=== PATIENT | male | born 1980 | race Caucasian/White ===

== ENCOUNTER 2022-08-31 15:40 | Outpatient (OUT) | payer OTHER, SELFPAY ==
[2022-08-31 16:25] LABS: Estimated Average Glucose 312 mg/dL; Glycohemoglobin A1C 12.5 % (4.5-6.2)
== END 2022-08-31 15:41 | disposition home or self-care (01) ==
LOC: LAB 15:43
PROVIDERS: PCP Family Medicine; Visit Provider Family Medicine
DX: E11.65 Type 2 diabetes mellitus with hyperglycemia (principal)
CPT/HCPCS: 36415; 83036

== ENCOUNTER 2023-01-03 07:45 | Outpatient (OUT) | payer OTHER, SELFPAY ==
[2023-01-03 08:03] LABS: Basophils Absolute Auto 0.1 10^3/uL (0.0-0.1); Basophils Percent Auto 0.9 % (0.2-2.0); Eosinophils Absolute Auto 0.4 10^3/uL (0.0-0.7); Eosinophils Percent Auto 6.5 % (0.9-7.0); Hematocrit 45.7 % (42.0-54.0); Hemoglobin 14.9 g/dL (14.0-18.0); Immature Granulocytes Abs Auto 0.01 10^3/uL (0.00-0.03); Immature Granulocytes Pct Auto 0.2 % (0.0-0.5); Lymphocytes Absolute Auto 1.5 10^3/uL (1.2-3.8); Lymphocytes Percent Auto 26.2 % (20.5-60.0); Mean Corpuscular HGB Conc 32.6 g/dL (29.9-35.2); Mean Corpuscular Hemoglobin 29.8 pg (25.9-34.0); Mean Corpuscular Volume 91.4 fL (80.0-94.0); Mean Platelet Volume 9.4 fL (9.5-13.5); Monocytes Absolute Auto 0.5 10^3/uL (0.3-0.8); Monocytes Percent Auto 7.7 % (1.7-12.0); Neutrophils Absolute Auto 3.4 10^3/uL (1.4-6.5); Neutrophils Percent Auto 58.5 % (43.0-75.0); Platelet Count 274 10^3/uL (150-450); Red Cell Distribution Width 12.1 % (11.0-15.0); White Blood Count 5.8 10^3/uL (4.0-11.0)
[2023-01-03 10:41] LABS: Estimated Average Glucose 249 mg/dL; Glycohemoglobin A1C 10.3 % (4.5-6.2)
[2023-01-03 10:55] LABS: Prostate Specific Antigen Scrn 1.02 ng/mL (<=4.00)
[2023-01-03 12:45] LABS: Alanine Aminotransferase 34 U/L (16-63); Alkaline Phosphatase 85 U/L (46-116); Anion Gap 13.5; Aspartate Amino Transferase 18 U/L (15-37); BUN Creatinine Ratio 15.5; Bilirubin Total 0.7 mg/dL (0.2-1.0); Calcium 9.2 mg/dL (8.5-10.1); Carbon Dioxide 26.7 mmol/L (21.0-32.0); Chloride 102 mmol/L (98-107); Cholesterol 217 mg/dL (<=200); Estimated GFR (African America >60 (>=60); Estimated GFR (Non-African Ame >60 (>=60); Glucose 215 mg/dL (74-106); HDL Cholesterol 36 mg/dL (40-60); Potassium 4.2 mmol/L (3.5-5.1); Sodium 138 mmol/L (136-145); Thyroid Stimulating Hormone 2.001 uIU/mL (0.358-3.740); Triglycerides 197 mg/dL (<=150); VLDL CHOLESTEROL 39.4 mg/dL
== END 2023-01-03 07:46 | disposition home or self-care (01) ==
PROVIDERS: PCP Family Medicine; Visit Provider Family Medicine
DX: Z00.00 Encounter for general adult medical examination without abnormal findings (principal)
CPT/HCPCS: 36415; 80053; 80061; 83036; 84443; 85025; G0103

== ENCOUNTER 2023-03-20 08:00 | Outpatient (OUT) | payer OTHER, SELFPAY ==
--- OUTSIDE RECORDS SUMMARY | 2023-03-20 08:02 | XMS_ITS | CCD ---
Author Name Unknown Address [address] [place] [address] Organization [facility] Care Team Providers Care Skiing Instructor Name Role Phone ROMERO LOJA Primary Care Physician DINORA HUERTA Attending Unavailable DEANNA, DINORA Admitting Unavailable DEANNA, DINORA Primary Care Unavailable DINORA HUERTA Consulting Unavailable HITCHCOCK ., DR LOPEZ Admitting Unavailable HITCHCOCK ., DR LOPEZ Consulting Unavailable HITCHCOCK ., DR LOPEZ Attending Unavailable NADERER, DR ISIDRO Moe Primary Care Unavailable LUIS M, DR EVELIA Lance Consulting Unavailable NADERER, DR ISIDRO Moe Primary Care Unavailable HITCHCOCK ., DR LOPEZ Admitting Unavailable HITCHCOCK ., DR LOPEZ Consulting Unavailable HITCHCOCK ., DR LOPEZ Attending Unavailable ZIEBER, DR LIZZ Brower Consulting Unavailable DINORA HUERTA Primary Care Unavailable NADERER, DR ISIDRO Moe Consulting Unavailable NADERER, DR ISIDRO Moe Attending Unavailable NADERER, DR ISIDRO Moe Admitting Unavailable NADERER, ISIDRO Attending Unavailable HITCHCOCK, Ambrocio Brower Referring Unavailable HITCHCOCK, Ambrocio Brower Admitting Unavailable HITCHCOCK, Ambrocio Brower Attending Unavailable Al-Marrawi, Jose Frost Admitting Unavailabl e Al-Marrawi, Jose Frost Attending Unavailabl e HITCHCOCK, Ambrocio Brower Referring Unavailable HITCHCOCK, Ambrocio R Attending Unavailable HITCHCOCK, Ambrocio R Referring Unavailable HITCHCOCK, Ambrocio R Attending Unavailable HITCHCOCK, Ambrocio R Attending Unavailable HITCHCOCK, Ambrocio R Attending Unavailable HITCHCOCK, Ambrocio R Referring Unavailable Al-Marrawi, Jose Frost Attending Unavailabl e Allergies Allergy Classification Reported Allergen(s) Allergy Type Date of Onset Reaction(s) Facility (1 source) No Known Medication Allergies; Translations: [No Known Medication Allergies] Propensity to adverse reactions (disorder) [facility] Repository Medications Current Medications Medication Drug Class(es) Dates Sig (Normalized) Sig (Original) apixaban 5 mg oral tablet (5 sources) Factor Xa Inhibitor Start: 03-17-2022 Eliquis 5 mg oral tablet Refills(s) 0 Start Date: 03/17/22 Status: Ordered empagliflozin 25 mg oral tablet (3 sources) Sodium-Glucose Cotransporter 2 Inhibitor Start: 10-03-2022 Jardiance 25 mg oral tablet Refills(s) 0 Start Date: 10/03/22 Status: Ordered glimepiride 4 mg oral tablet (5 sources) Sulfonylurea Start: 03-17-2022 glimepiride 4 mg Tab Refills(s) 0 Start Date: 03/17/22 Status: Ordered lisinopril 40 mg oral tablet (5 sources) Angiotensin Converting Enzyme Inhibitor Start: 03-17-2022 lisinopril 40 mg Tab Refills(s) 0 Start Date: 03/17/22 Status: Ordered metFORMIN hydrochloride 500 mg oral tablet (5 sources) Biguanide Start: 03-17-2022 metformin 500 mg Tab Refills(s) 0 Start Date: 03/17/22 Status: Ordered Completed/Discontinued Medications Medication Drug Class(es) Dates Sig (Normalized) Sig (Original) ciprofloxacin 500 mg oral tablet (2 sources) Quinolone Antimicrobial Start: 03-17-2022 Cipro 500 mg Tab 500 mg = 1 tab(s), Oral, As Directed, Pt to take 1 tab the day before procedure and the 2nd tab the day of procedure once completed., # 2 tab(s), Refills(s) 0, Pharmacy: [facility]/pharmacy #[id number], 175, cm, 03/17/22 9:53:00 EST, Height/Length Dosing, 111, kg,... Start Date: 03/17/22 Status: Ordered Problems Problem Classification Problem Date Documented Da te Episodic/Chronic Cancer of testis (9 sources) Malignant tumor of testis; Translations: [Malignant neoplasm of unspecified testis, unspecified whether descended or undescended] Onset: 04-06-2022 03-17-2022 Chronic Cancer of testis (11 sources) History of malignant neoplasm of male genital organ; Translations: [Personal history of malignant neoplasm of testis] Onset: 03-17-2022 Episodic Diabetes mellitus with complications (1 source) Type 2 diabetes mellitus with hyperglycemia; Translations: [TYPE 2 DM W/HYPERGLYCEMIA] Onset: 01-21-2022 Chronic Diabetes mellitus without complication (5 sources) Diabetes mellitus 03-17-2022 Chronic Diabetes mellitus without complication (6 sources) Glycosuria; Translations: [Glycosuria] Onset: 03-17-2022 Episodic Essential hypertension (5 sources) Hypertensive disorder 03-17-2022 Chronic Genitourinary symptoms and ill-defined conditions (7 sources) Microscopic hematuria; Translations: [Asymptomatic microscopic hematuria] Onset: 03-17-2022 Episodic Other aftercare (1 source) Long-term current use of anticoagulant; 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 CXR, tumor markers Due Date/Time: 02/26/2023 10:50:00 EST Reminder/Recall Pt is due in MAR [address] scan, CXR, tumor markers. He would like [facility] on sunday/ He would also like his f/u moved to sunday once the sched is done for 2023. From: Monse Hinton MA (EU - Recalls Coretta) To: EU - Recalls Coretta; Sent: 03/09/2023 13:24:27 EST Show up: 03/09/2023 13:24:00 EST Subject: RE: CT scan. CXR, tumor markers Due Date/Time: 03/26/2023 07:00:00 EST Testing has been ordered by Oncology. CT still pending auth Follow up w/PRW 04/02/23 [facility] Physician Orderon 03-05-2023 Physician Order [id number]#1.00TIFF [facility] Outside Radiologyon 10-09-20 23 Outside Radiology [id number]#[id number] Normal [facility] Outside Radiology [id number]#[id number] Normal [facility] Consenton 10-30-2022 Consent [id number]#1.00CD:127 Normal [facility] ONC - Otheron 10-30-2022 ONC - Other [id number]#[id number]:127 Normal [facility] Outside Progress Noteon 10-07 Outside Progress Note [id number]#[id number]:127 Normal [facility] AFPon 10-26-2022 AFP.tumor marker [Mass/Vol] ng/mL Invalid Interpretation Code 0.0-6.9 [facility] Comment on above: Result Comment: [employer] Electrochemiluminescence Immunoassay (ECLIA) Values obtained with different assay methods or kits cannot be used interchangeably. Results cannot be interpreted as absolute evidence of the presence or absence of malignant disease. This test is not interpretable in females. Performed at: [facility] [id number] PhD Zachary Holm Performed By: #### 2 818469, 5770464, 0688813, 0856365, 03829466 ####[facility] [address] [place] [address] Lab Miscellaneous-LCon 10-26 Lab Miscellaneous COMMENT Invalid Interpretation Code [facility] Comment on above: Result Comment: Test Ordered: [id number] hCG,Beta Subunit, Qnt hCG,Beta Subunit,Qnt,Serum <1 mIU/mL Reference Range: 0-3 Amelia ECLIA methodology Performed at: [address] [id number] PhD Zachary Holm Performed By: #### 1 [id number] #### [facility] [address] [place] [address] Auto Diffon 10-24-2022 Basophils/100 WBC (Bld) 0.7 % Normal 0.0-2.0 [facility] Comment on above: Order Comment: Order Added by Discern Expert. Performed By: #### 2 049354, 4613363, 3056814, 2401665, 45758153 ####[address] [place] [address] Basophils/Leukocytes Auto (Bld) [Pure # fraction] 0.1 E9/L Normal 0.0-0.2 [facility] Comment on above: Order Comment: Order Added by Discern Expert. Performed By: #### 2 316134, 1004688, 4940087, 0621913, 95302668 ####[address] [place] [address] Eosinophils/100 WBC (Bld) 8.2 % High 0.0-8.0 [facility] Comment on above: Order Comment: Order Added by Discern Expert. Performed By: #### 2 384390, 4903483, 4664583, 1640190, 11550856 ####[address] [place] [address] Eosinophils/Leukocyt es Auto (Bld) [Pure # fraction] 0.6 E9/L High 0.0-0.5 [facility] Comment on above: Order Comment: Order Added by Discern Expert. Performed By: #### 2 111689, 5011008, 4138651, 6028781, 80631071 ####[address] [place] [address] Lymphocytes/100 WBC (Bld) 19.8 % Normal 14.0-50.0 [facility] Comment on above: Order Comment: Order Added by Discern Expert. Performed By: #### 2 892631, 8731797, 2693455, 7950485, 45135739 ####[address] [address] Lymphocytes/Leukocyt es Auto (Bld) [Pure # fraction] 1.4 E9/L Normal 1.0-4.0 [facility] Comment on above: Order Comment: Order Added by Discern Expert. Performed By: #### 2 953235, 9317093, 8511151, 6138662, 41551070 ####[facility] [address] [place] [address] Monocytes/100 WBC (Bld) 8.5 % Normal 4.0-14.0 [facility] Comment on above: Order Comment: Order Added by Discern Expert. Performed By: #### 2 896498, 2721921, 6172017, 2261550, 63541306 ####[address] [place] [address] Monocytes/Leukocytes Auto (Bld) [Pure # fraction] 0.6 E9/L Normal 0.2-1.0 [facility] Comment on above: Order Comment: Order Added by Discern Expert. Performed By: #### 2 182265, 3471011, 7768942, 3738581, 01282795 ####[address] [address] Neutrophils/100 WBC (Bld) 62.8 % Normal 36.0-75.0 [facility] Comment on above: Order Comment: Order Added by Discern Expert. Performed By: #### 2 296549, 3844617, 9762893, 5402243, 18795465 ####[address] [place] [address] Neutrophils/Leukocyt es Auto (Bld) [Pure # fraction] 4.6 E9/L Normal 2.0-7.5 [facility] Comment on above: Order Comment: Order Added by Discern Expert. Performed By: #### 2 768802, 1802891, 9031499, 3583421, 16245322 ####[address] [place] [address] CBC w/ Auto Diffon 3 Erythrocyte distribution width (RBC) [Ratio] 12.9 % Normal 10.9-14.2 [facility] Comment on above: Performed By: #### 2 779141, 8571717, 6260223, 9882891, 17739013 #### [facility] [address] [place] [address] Hematocrit (Bld) [Volume fraction] 40.9 % Normal 37.7-49.0 [facility] Comment on above: Performed By: #### 2 383978, 5993972, 9597423, 6317430, 71184808 #### [facility] [address] [place] [address] Hemoglobin (Bld) [Mass/Vol] 13.9 g/dL Normal 13.5-17.5 [facility] Comment on above: Performed By: #### 2 067820, 7953198, 8014621, 7175362, 87265579 #### [facility] [address] [place] [address] MCH (RBC) [Entitic mass] 30.3 pg Normal 27.0-34.0 [facility] Comment on above: Performed By: #### 2 229450, 9139103, 8478344, 9509804, 45422034 #### [facility] [address] [place] [address] MCHC (RBC) [Mass/Vol] 34.0 g/dL Normal 31.4-36.0 [facility] Comment on above: Performed By: #### 2 206806, 1394451, 9525081, 7214512, 04353859 #### [facility] [address] [place] [address] MCV (RBC) [Entitic vol] 89.2 fL Normal 80.0-100.0 [facility] Comment on above: Performed By: #### 2 577236, 4402204, 8987048, 8316266, 06659517 #### [facility] [address] [place] [address] Platelet mean volume (Bld) [Entitic vol] 8.4 fL Normal 6.4-10.8 [facility] Comment on above: Performed By: #### 2 323323, 8405708, 8572895, 9415141, 42142063 #### [facility] [address] [place] [address] Platelets (Bld) [#/Vol] 343.0 E9/L Normal 150.0-500.0 [facility] Comment on above: Performed By: #### 2 485306, 9198845, 5876291, 7925439, 31887533 #### [facility] [address] [place] [address] RBC (Bld) [#/Vol] 4.6 E12/L Normal 4.3-5.9 [facility] Comment on above: Performed By: #### 2 138708, 0118277, 8640680, 4132304, 95125284 #### [facility] [address] [place] [address] WBC corrected for nucl RBC Auto (Bld) [#/Vol] 7.3 E9/L Normal 4.0-11.0 [facility] Comment on above: Performed By: #### 2 165184, 6875991, 4455303, 2167311, 90525340 #### [facility] [address] [place] [address] CHEMISTRYOrdered By: SYSTEM SYSTEM on 10-24-2022 Albumin [Mass/Vol] 4.3 g/dL Normal 3.3 - 5.0 gm/dL [facility] Albumin/Globulin [Mass ratio] 1.1 {ratio} Normal 1.1 - 2.2 [facility] ALP [Catalytic activity/Vol] 74 [iU]/d Normal 21 - 98 Int._Unit/L [facility] ALT No additional P-5'-P [Catalytic activity/Vol] 31 [iU]/d Normal 6 - 46 Int._Unit/L [facility] Anion gap [Moles/Vol] 13 mmol/L Normal 6 - 16 mEq/L [facility] AST [Catalytic activity/Vol] 26 [iU]/d Normal 5 - 43 Int._Unit/L [facility] Bilirubin [Mass/Vol] 0.5 mg/dL Normal 0.0 - 1 .1 mg/dL [facility] Calcium [Mass/Vol] 9.4 mg/dL Normal 8.9 - 11. 1 mg/dL [facility] Chloride [Moles/Vol] 103 mmol/L Normal 101 - 1 11 mmol/L [facility] CO2 [Moles/Vol] 23 mmol/L Normal 21 - 31 mmol/L [facility] Creatinine [Mass/Vol] 0.9 mg/dL Normal 0.5 - 1.3 mg/dL [facility] GFR/1.73 sq M.predicted among non-blacks MDRD (S/P/Bld) [Vol rate/Area] 111 mL/min/1.73 m2 Normal >=59mL/min/ 1.73 m2 FT Chem S Globulin (S) [Mass/Vol] 3.9 g/dL Normal 1.4 - 4.0 gm/dL [facility] Glucose [Mass/Vol] 221 mg/dL High 55 - 199 mg/dL [facility] LDH [Catalytic activity/Vol] 119 [iU]/d Normal 93 - 218 Int._Unit/L [facility] Potassium [Moles/Vol] 3.6 mmol/L Normal 3.5 - 5.3 mmol/L [facility] Protein [Mass/Vol] 8.2 g/dL High 6.0 - 7.8 gm/dL [facility] Sodium [Moles/Vol] 135 mmol/L Normal 135 - 145 mmol/L [facility] Urea nitrogen [Mass/Vol] 22 mg/dL High 5 - 21 mg/dL [facility] Urea nitrogen/Creatinine [Mass ratio] 24 mg/mg High 10 - 20 [facility] CMPon 10-24-2022 Albumin [Mass/Vol] 4.3 g/dL Normal 3.3-5.0 [facility] Comment on above: Performed By: #### 2 512201, 5156749, 5126699, 0406878, 50641617 ####[facility] [address] [place] [address] Albumin/Globulin (S) [Mass conc ratio] 1.1 Normal 1.1-2.2 [facility] Comment on above: Performed By: #### 2 441743, 4534714, 3561546, 1770050, 16763211 ####[facility] [address] [place] [address] ALP [Catalytic activity/Vol] 74 Int._Unit/L Normal 21-98 [facility] Comment on above: Performed By: #### 2 847083, 6434518, 0426501, 6043060, 85021933 ####[facility] [address] [place] [address] ALT No additional P-5'-P [Catalytic activity/Vol] 31 Int._Unit/L Normal 6-46 [facility] Comment on above: Performed By: #### 2 335663, 9171914, 2070267, 5660508, 57276070 ####[facility] [address] [place] [address] Anion gap [Moles/Vol] 13 mmol/L Normal 6-16 [facility] Comment on above: Performed By: #### 2 074519, 5955562, 5244759, 9289523, 87455420 ####[facility] [address] [place] [address] AST [Catalytic activity/Vol] 26 Int._Unit/L Normal 5-43 [facility] Comment on above: Performed By: #### 2 150241, 8184733, 7548093, 5527580, 67398822 ####[facility] [address] [place] [address] Bilirubin [Mass/Vol] 0.5 mg/dL Normal 0.0-1.1 [facility] Comment on above: Performed By: #### 2 289291, 7099340, 4374895, 7262591, 41095209 ####[facility] [address] [place] [address] Calcium [Mass/Vol] 9.4 mg/dL Normal 8.9-11.1 [facility] Comment on above: Performed By: #### 2 428031, 8090017, 7770507, 5220677, 19899922 ####[facility] [address] [place] [address] Chloride [Moles/Vol] 103 mmol/L Normal 101-111 [facility] Comment on above: Performed By: #### 2 547174, 3092310, 5041737, 2250899, 93793829 ####[facility] [address] [place] [address] CO2 [Moles/Vol] 23 mmol/L Normal 21-31 [facility] Comment on above: Performed By: #### 2 147278, 1854409, 2883055, 5035075, 41818221 ####[facility] [address] [place] [address] Creatinine [Mass/Vol] 0.9 mg/dL Normal 0.5-1.3 [facility] Comment on above: Performed By: #### 2 510148, 5595922, 6625851, 5667435, 90970433 ####[facility] [address] [place] [address] Globulin (S) [Mass/Vol] 3.9 g/dL Normal 1.4-4.0 [facility] Comment on above: Performed By: #### 2 519005, 6363819, 8456687, 3767379, 48922163 ####[facility] [address] [place] [address] Glucose [Mass/Vol] 221 mg/dL High 55-199 [facility] Comment on above: Result Comment: If t his glucose result represents a fasting glucose, interpretation should refer to the following reference range: 55-99 mg/dL Performed By: #### 2 052886, 2205546, 8938615, 5358073, 95056743 ####[facility] [address] [place] [address] Potassium [Moles/Vol] 3.6 mmol/L Normal 3.5-5.3 [facility] Comment on above: Performed By: #### 2 587968, 2413603, 9173596, 9351143, 03449344 ####[facility] [address] [place] [address] Protein [Mass/Vol] 8.2 g/dL High 6.0-7.8 [facility] Comment on above: Performed By: #### 2 564022, 3337240, 4002408, 9479051, 71412370 ####[facility] [address] [place] [address] Sodium [Moles/Vol] 135 mmol/L Normal 135-145 [facility] Comment on above: Performed By: #### 2 839179, 1976970, 7161981, 5891855, 70459202 ####[facility] [address] [place] [address] Urea nitrogen [Mass/Vol] 22 mg/dL High 5-21 [facility] Comment on above: Performed By: #### 2 996543, 0092282, 0365274, 9123034, 09935050 ####[facility] [address] [place] [address] Urea nitrogen/Creatinine [Mass ratio] 24 No Units High 10-20 [facility] Comment on above: Performed By: #### 2 832256, 0360900, 9080572, 0021245, 24904819 ####[facility] [address] [place] [address] Consent for Treatmenton 10-06 Consent for Treatment [id number]#[id number]:127 Normal [facility] Consent for Treatment [id number]#[id number]:127 Normal [facility] HEMATOLOGYOrdered By: SYSTEM SYSTEM on 10-24-2022 Basophils/100 WBC (Bld) 0.7 % Normal 0.0 - 2.0 % [facility] HemeAutoSS Basophils/Leukocytes Auto (Bld) [Pure # fraction] 0.1 E9/L Normal 0.0 - 0.2 E9/L [facility] HemeAutoSS Eosinophils/100 WBC (Bld) 8.2 % High 0.0 - 8.0 % [facility] HemeAutoSS Eosinophils/Leukocyt es Auto (Bld) [Pure # fraction] 0.6 E9/L High 0.0 - 0.5 E9/L [facility] HemeAutoSS Lymphocytes/100 WBC (Bld) 19.8 % Normal 14.0 - 50.0 % [facility] HemeAutoSS Lymphocytes/Leukocyt es Auto (Bld) [Pure # fraction] 1.4 E9/L Normal 1.0 - 4.0 E9/L [facility] HemeAutoSS Monocytes/100 WBC (Bld) 8.5 % Normal 4.0 - 14.0 % [facility] HemeAutoSS Monocytes/Leukocytes Auto (Bld) [Pure # fraction] 0.6 E9/L Normal 0.2 - 1.0 E9/L [facility] HemeAutoSS Neutrophils/100 WBC (Bld) 62.8 % Normal 36.0 - 75.0 % [facility] HemeAutoSS Neutrophils/Leukocyt es Auto (Bld) [Pure # fraction] 4.6 E9/L Normal 2.0 - 7.5 E9/L [facility] HemeAutoSS HEMATOLOGYOrdered By: Salma Bright on 10-24-2022 Erythrocyte distribution width (RBC) [Ratio] 12.9 % Normal 10.9 - 14.2 % [facility] HemeAutoSS Hematocrit (Bld) [Volume fraction] 40.9 % Normal 37.7 - 49.0 % [facility]eAutoSS Hemoglobin (Bld) [Mass/Vol] 13.9 g/dL Normal 13.5 - 17.5 gm/dL [facility]eAutoSS MCH (RBC) [Entitic mass] 30.3 pg Normal 27.0 - 34.0 pg [facility]eAutoSS MCHC (RBC) [Mass/Vol] 34.0 g/dL Normal 31.4 - 36.0 gm/dL [facility]eAutoSS MCV (RBC) [Entitic vol] 89.2 fL Normal 80.0 - 100.0 fL [facility] HemeAutoSS Platelet mean volume (Bld) [Entitic vol] 8.4 fL Normal 6.4 - 10.8 fL [facility] HemeAutoSS Platelets (Bld) [#/Vol] 343.0 E9/L Normal 150.0 - 500.0 E9/L [facility]eAutoSS RBC (Bld) [#/Vol] 4.6 E12/L Normal 4.3 - 5.9 E12/L [facility] HemeAutoSS WBC corrected for nucl RBC Auto (Bld) [#/Vol] 7.3 E9/L Normal 4.0 - 11.0 E9/L [facility] HemeAutoSS LDHon 10-24-2022 LDH [Catalytic activity/Vol] 119 Int._Unit/L Normal 93-218 [facility] Comment on above: Performed By: #### 2 [id number] ####[facility] [address] [place] [address] Lab Miscellaneous-LCon 10-24 Test Code 135263 Invalid Interpretation Code [facility] Comment on above: Performed By: #### 1 [id number] #### [facility] [address] [place] [address] Test Name hCG b-sub Invalid Interpretation Code [facility] Comment on above: Performed By: #### 1 [id number] #### [facility] [address] [place] [address] Oncology Noteon 10-24-2022 Oncology Note Oncology Care Coordi nator Office Visit/Treatment Note Current Patient Status/Reason: Pt in for initial clinic visit, after moving from [place]. Pt has history of testicular cancer, also DVT. I accompanied Dr. Menjivar in room. took pt's history, and viewed CT results, as well as CXR that was done by Dr. Hitchcock. Treatment Plan: CBC, CMP, AFP, beta hcg labs today. CXR, CT CAP in 2023 [address] Hitchcock. Follow-Up Appointment Info/Referrals: F/U end of 2023. Resources Offered: I gave pt my contact information as well as 's and instructed to call with any questions or concerns. I instructed in outpt lab and pt will go there after this visit. Pt states he will call later this week for lab results. Pt voiced no other questions or concerns to me when I asked. 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 Patient history started by him feeling painful right testicle mass for which an ultrasound of the scrotum was done for further evaluation. Scrotal ultrasound on November 09, 2020 revealed large mass in the right testicle associated with micro lithiasis as well as bilateral varicoceles. He underwent CT scans of the abdomen and pelvis on 11/11/2020 which demonstrated no retroperitoneal lymphadenopathy or acute findings. Labs on 11/22/2020 revealed beta-hCG hCG elevated at 561.8, alpha-fetoprotein was 29.6 and LDH was 295. He underwent right orchiectomy on 11/30/2020 and the diagnosis. Path was embryonal carcinoma. Repeated labs after his orchiectomy on 12/14/2020 revealed beta-hCG of 2.0, alpha-fetoprotein 4.4, and LDH of 183. He received 1 cycle of adjuvant chemotherapy with bleomycin plus etoposide plus cisplatin on 01/10/2021. That he tolerated it well without side effects at her loss. He has been followed by urologist Dr. Bahena in [place] ever since though he moved to [facility] a year ago and started seeing Dr. Hunter who performed CT of abdomen and pelvis and a chest x-ray back in 04-27 and 03/21/2022. The CT scan will revealed recent small borderline centric lymphadenopathy but no convincing evidence of metastatic disease in the chest x-ray is unremarkable. He had tumor markers alpha-fetoprotein LDH and beta-hCG were totally negative in March 2022. Alpha-fetoprotein was less than 1.8, beta-hCG was less than 1.0, and LDH was normal 115 in March. Patient is establishing care with our [facility] medical oncology initial consult on 10/24/22. Review of Systems Constitutional: Negative. Eye: Negative. Ear/Nose/Mouth/Throat: Negative. Respiratory: Negative. Cardiovascular: Negative. Gastrointestinal: Negative. Genitourinary: Negative. Hematology/Lymphatics: Negative. Musculoskeletal: Negative. Integumentary: Negative. Neurologic: Alert and oriented X4. Psychiatric: Negative. ROS reviewed as documented in chart Health Status Allergies: Allergic Reactions (Selected) No Known Medication Allergies Current medications: Home Medications (5) Active Eliquis 5 mg oral tablet glimepiride 4 mg Tab Jardiance 25 mg oral tablet lisinopril 40 mg Tab metformin 500 mg Tab , No qualifying data available Problem list: All Problems Asymptomatic microscopic hematuria / SNOMED CT 1885187584 / Confirmed Diabetes / SNOMED CT 568765057 / Confirmed Anticoagulated / SNOMED CT 948160695 / Confirmed Glycosuria / SNOMED CT 44931066 / Confirmed History of testicular cancer / SNOMED CT 6716703078 / Confirmed Hypertension / SNOMED CT 9273062422 / Confirmed Testicular cancer / SNOMED CT 750336144 / Confirmed Nocturia / SNOMED CT 449574655 / Confirmed Histories Past Medical History: No active or resolved past medical history items have been selected or recorded. Family History: Entire family history is negative. Procedure history: Right total orchiectomy (SNOMED CT 3104706004) on 11/28/2021 at 41 Years. Social History Social & Psychosocial Habits Tobacco 03/17/2022 Tobacco Use: Never (less than 100 in l Smokeless tobacco use: Never . Physical Examination Vital Signs 10/24/2022 13:00 EDT Temperature Oral 36.8 DegC Peripheral Pulse Rate 89 bpm Respiratory Rate 16 br/min Systolic Blood Pressure 143 mmHg HI Diastolic Blood Pressure 92 mmHg HI Blood Pressure Location Left arm Mean Arterial Pressure, Cuff 109 mmHg SpO2 98 % General: alert, no acute distress HENMT: Normocephalic, atraumatic. Neck: supple and no LAP or thyromegaly. Cardiovascular: regular rate and rhythm, No murmurs Respiratory: Lungs CTA, respirations non labored. Abdomen: Soft nontender nondistended without hepatosplenomegaly or masses clinically. Extremities: no deformity, no edema. Lymph system: Currently she has no lymphadenopathy in her cervical area subclavian area/axillary areas and inguinal areas bilaterally. Neurological: oriented x 4, LOC appropriate for age, CN II-XII intact, motor strength equal & normal bilaterally, sensation normal bilaterally, speech normal Skin: No rash. Psychiatric: Normal mood and interaction. exam is done by Dr Hunter his urologist. Review / Management Resu (more content not included)... [facility] Testing Ordered By: Carmel Jacobson on 10-24-2022 Test Code [id number] Invalid Interpretation Code [facility] SendOutsSS Test Name hCG b-sub Invalid Interpretation Code [facility] SendOutsSS eGFRon 10-24-2022 GFR/1.73 sq M.predicted among non-blacks MDRD (S/P/Bld) [Vol rate/Area] 111 mL/min/1.73 m2 Normal >=59 [facility] Comment on above: Order Comment: Order added by Discern Expert. Result Comment: Electric Motor Tester mau kidney disease could be indicated at eGFR's of less than 60 mL/min/1.73m2. Kidney failure is indicated at less than 15 mL/min/1.73m2. Performed By: #### 2 [id number], [id number], [id number] ####[facility] [id number] [place] [address] Ambulatory Visit Summaryon 0 10-03-2022 Ambulatory Visit Summary ROMERO MORGAN :1980 Visit Date:10/03/2022 Ambulatory Visit Instructions Your Diagnosis History of testicular cancer Asymptomatic microscopic hematuria Anticoagulated Nocturia Tests Performed Urnls Dip Stick Auto w/o Microscopy POC 74287 CT Abdomen/Pelvis w/ + w/o Contrast -- Results Pending -- XR Chest 2 Views -- Results Pending -- Please visit your patient portal for your results or contact your primary care physician. Your Care Team Attending Physician - Ambrocio HITCHCOCK MD Primary Care Physician - ROMERO LOJA DC Referring Physician - Ambrocio HITCHCOCK MD This Is Your Medications List Contact prescribing physician if questions or concerns apixaban (Eliquis 5 mg oral tablet) empagliflozin (Jardiance 25 mg oral tablet) glimepiride (glimepiride 4 mg Tab) lisinopril (lisinopril 40 mg Tab) metformin (metformin 500 mg Tab) Procedures Performed Right total orchiectomy (11/28/2021). Discharge Vitals Temperature (Temporal Artery) 37 ?C Heart Rate (Peripheral) 77 Blood Pressure 131/81 Height 175 cm Height 69 in Weight 111 kg Weight 244.2 lb BMI 36.24 What to do next Scheduled Follow-Up Appointments 2022 11:15 AM EDT With: Jordon Stout DO Where: [facility] Sunday 10:30 AM EST With: Ambrocio HITCHCOCK MD Where: [facility] Ambulatory Visit Summary ROMERO MORGAN :1980 Visit Date:10/03/2022 Ambulatory Visit Instructions Your Diagnosis History of testicular cancer Asymptomatic microscopic hematuria Anticoagulated Nocturia Tests Performed Urnls Dip Stick Auto w/o Microscopy POC [address]26 CT Abdomen/Pelvis w/ + w/o Contrast -- Results Pending -- XR Chest 2 Views -- Results Pending -- Please visit your patient portal for your results or contact your primary care physician. Your Care Team Attending Physician - Ambrocio HITCHCOCK MD Primary Care Physician - ROMERO LOJA DC Referring Physician - Ambrocio HITCHCOCK MD This Is Your Medications List Contact prescribing physician if questions or concerns apixaban (Eliquis 5 mg oral tablet) empagliflozin (Jardiance 25 mg oral tablet) glimepiride (glimepiride 4 mg Tab) lisinopril (lisinopril 40 mg Tab) metformin (metformin 500 mg Tab) Procedures Performed Right total orchiectomy (11/28/2021). Discharge Vitals Temperature (Temporal Artery) 37 ?C Heart Rate (Peripheral) 77 Blood Pressure 131/81 Height 175 cm Height 69 in Weight 111 kg Weight 244.2 lb BMI 36.24 What to do next You Need to Schedule the Following Appointments Follow Up with Ambrocio HITCHCOCK MD, URL When: Where: [facility] [address], [place] [address]- Medications What When Instructions Unchanged apixaban (Eliquis 5 mg oral tablet) Contact prescribing physician if questions or concerns Unchanged empagliflozin (Jardiance 25 mg oral tablet) Contact prescribing physician if questions or concerns Unchanged glimepiride (glimepiride 4 mg Tab) Contact prescribing physician if questions or concerns Unchanged lisinopril (lisinopril 40 mg Tab) Contact prescribing physician if questions or concerns Unchanged metformin (metformin 500 mg Tab) Contact prescribing physician if questions or concerns Test Results Urnls Dip Stick Auto w/o Microscopy POC 57979 (10/03/2022) Bilirubin Urine Dipstick - Negative Blood Urine Dipstick - Negative Glucose Urine Dipstick - 2+ 500 mg/dl Ketones Urine Dipstick - 2+ 40 mg/dl Leukocytes Urine Dipstick - Negative Nitrite Urine Dipstick - Negative Protein Urine Dipstick - Negative Specific Epsom Urine Dipstick - 1.010 Urine Appearance Urine Dipstick - Clear Urine Color Urine Dipstick - Yellow Urobilinogen Urine Dipstick - Normal 0.2-1 EU/dl pH Urine Dipstick - 5.5 Allergies No Known Medication Allergies Problems Ongoing - Any problem that you are currently receiving treatment for. Anticoagulated Asymptomatic microscopic hematuria Diabetes Glycosuria History of testicular cancer Hypertension Nocturia Testicular cancer Education Materials Testicular Self-Exam A self-examination of your testicles (testicular self-exam) involves looking at and feeling your testicles for abnormal lumps or swelling. Several things can cause swelling, lumps, or pain in your testicles. Some of these causes are: ? Injuries. ? Inflammation. ? Infection. ? Buildup of fluids around the testicle (hydrocele). ? Twisted testicles (testicular torsion). ? Testicular cancer. You may be at risk for testicular cancer if you have: ? An undescended testicle (cryptorchidism). ? A history of previous testicular cancer. ? A family history of testicular cancer. General tips and recommendations ? The testicles are easiest to examine after a warm bath or shower. They are more difficult to examine when you are cold because the muscles attached to the testicles retract and pull them up higher or into the abdomen. ? A normal testicle is egg-shaped and feels firm. It is smooth and not tender. ? It is normal to feel a firm, spaghetti-like cord at the back of your testicle. This is the spermatic cord. How to do a testicular self-exam 1. Stand and hold your penis away from your body. 2. Look at each testicle to check for changes in appearance, such as swelling or changes in size or shape. 3. Roll each testicle between your thumb and forefinger, feeling the entire testicle. Feel for: ? Lumps. ? Swelling. ? Discomfort. 4. Check the groin area between your abdomen and upper thighs on both sides of your body. Look and feel for any swelling or bumps that are tender. These could be enlarged lymph nodes. Contact a health care provider if: ? You find any bumps or lumps, such as a small, hard, pea-sized lump. ? You find swelling, pain, or soreness. ? You see or feel any other changes in your testicles. Summary ? A self-examination of your testicles (testicular self-exam) involves looking at and feeling your testicles for any changes. ? Check each of your testicles for lumps, swelling, or discomfort. These changes can be caused by many things. ? Check for swelling or tender bumps in your groin area between your lower abdomen and upper thighs. (more content not included)... [facility] Patient Educationon 10-04-19 Patient Education Urology Testicular Self-Exam A self-examination of your testicles (testicular self-exam) involves looking at and feeling your testicles for abnormal lumps or swelling. Several things can cause swelling, lumps, or pain in your testicles. Some of these causes are: ? Injuries. ? Inflammation. ? Infection. ? Buildup of fluids around the testicle (hydrocele). ? Twisted testicles (testicular torsion). ? Testicular cancer. You may be at risk for testicular cancer if you have: ? An undescended testicle (cryptorchidism). ? A history of previous testicular cancer. ? A family history of testicular cancer. General tips and recommendations ? The testicles are easiest to examine after a warm bath or shower. They are more difficult to examine when you are cold because the muscles attached to the testicles retract and pull them up higher or into the abdomen. ? A normal testicle is egg-shaped and feels firm. It is smooth and not tender. ? It is normal to feel a firm, spaghetti-like cord at the back of your testicle. This is the spermatic cord. How to do a testicular self-exam 1. Stand and hold your penis away from your body. 2. Look at each testicle to check for changes in appearance, such as swelling or changes in size or shape. 3. Roll each testicle between your thumb and forefinger, feeling the entire testicle. Feel for: ? Lumps. ? Swelling. ? Discomfort. 4. Check the groin area between your abdomen and upper thighs on both sides of your body. Look and feel for any swelling or bumps that are tender. These could be enlarged lymph nodes. Contact a health care provider if: ? You find any bumps or lumps, such as a small, hard, pea-sized lump. ? You find swelling, pain, or soreness. ? You see or feel any other changes in your testicles. Summary ? A self-examination of your testicles (testicular self-exam) involves looking at and feeling your testicles for any changes. ? Check each of your testicles for lumps, swelling, or discomfort. These changes can be caused by many things. ? Check for swelling or tender bumps in your groin area between your lower abdomen and upper thighs. This information is not intended to replace advice given to you by your health care provider. Make sure you discuss any questions you have with your health care provider. Document Revised: 12/29/2019 Document Reviewed: 12/29/2019 [employer] Patient Education ? 2022 [employer]. [facility] Urology Office/Clinic Noteon 10-03-2022 Urology Office/Clinic Note Chief Complaint Pt is here for 6 month f/u HPI Staff Follow up to Cysto done 04/04/22. Previous DX: asymptomatic microscopic hematuria, glycosuria, HX of testicular cancer. S/P Rt orchiectomy done 11/28/21. Hem onc consult 05/16/21 - Recommended active f/u and surveillance. Clinical f/u q3mos first two years, annual surveillance CT of AP and CXR 6-12 mos in first year following completion of tx regimen. Testicular tumor markers 03/21/22 all wnl. CXR 03/21/22 - Neg for mets. Cysto 04/04/22 - Unobstructed, no b.t. 04/06/22 - Crea 0.93. eGFR >60. CT AP w/wo con 04/06/22 [facility] - Neg for mets. Increased number of normal and borderline enlarged mesenteric lymph nodes, nonspecific. Dysuria: denies Incomplete bladder emptying: denies Hematuria: denies Frequency: yes Urgency: denies Nocturia: 2x a night depending on fluid intake Stream: steady stream Leaking: denies Post void dripping: denies Wearing pads/ Depends: denies Urge incontinence: denies Stress incontinence: denies Incontinence without Sensory Awareness: denies Abdominal pain: denies Flank pain: denies Sexual complaints: _ History of Present Illness Tests reviewed: reviewed UA, cysto note, XR, labs, CT, [place] records. I have reviewed the previous health record information and history for this patient from Dr. Hitchcock. I have reviewed and verified the staff HPI to be accurate for this encounter. There have been no associated fever, chills, flank pain, or blood in the urine. Denies any urinary infections since last encounter. Review of Systems PHQ Score Initial Depression Screen Score: 0 ROS - Provider Constitutional: denies weight loss, denies hot flashes. Eyes: denies eye problems. Gastrointestinal: denies nausea, denies vomiting. Cardiovascular: denies chest pain or angina. Integumentary: no dryness Musculoskeletal: denies musculoskeletal symptoms. ENMT: denies otolaryngeal symptoms. Respiratory: no shortness of breath. Heme/Lymph: denies easy bleeding tendency, denies easy bruising tendency. Psychiatric: no confusion, no anxiety. Genitourinary: See HPI. Physical Exam Vitals & Measurements T: 37 ?C(Temporal Artery) HR: 77(Peripheral) BP: 131/81 HT: 69 in HT: 175 cm WT: 111 kg WT: 244.2 lb BMI: 36.24 General Appearance: alert, no distress, well nourished, well developed male. Genitourinary: normal scrotum, normal testes, normal urethra, normal epididymis, normal vas deferens/spermatic cord. Flank Pain: none. Bladder: nonpalpable. Assessment/Plan IPSS not completed (5). Pt here with his today. 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 1. History of testicular cancer (Z85.47: Personal history of malignant neoplasm of testis) Embryonal carcinoma of the tight testis, Stage 1S, hV0bBGE0. S/p right orchiectomy 11/30/20 in [place]. One cycle of adjuvant chemotherapy 01/2021. Hem onc consult 05/16/21 - Recommended active f/u and surveillance. Clinical f/u q3mos first two years, annual surveillance CT of AP and CXR 6-12 mos in first year following completion of tx regimen. Pt moved to [place] from [place] and established with this practice. Testicular tumor markers 03/21/22 all wnl. CXR 03/21/22 - Neg for mets. CT AP w/wo con 04/06/22 [facility] - Neg for mets. Increased number of normal and borderline enlarged mesenteric lymph nodes, nonspecific. 04/06/22 - Crea 0.93. eGFR >60. Reviewed original path with pt. Reviewed labs and imaging with pt, all wnl. Will cont repeating these studies q6mos for 5 years. Discussed establishing with an oncologist. Follow up 6 mos CXR, CT AP w/wo con, and tumor markers or sooner if needed. Pt understands and agrees with plan. -Refer to oncology. 2. Asymptomatic microscopic hematuria (R31.21: Asymptomatic microscopic hematuria) UA 03/17/22 - Small blood, neg for infection. Sent for cytology which showed atypical urothelial cells. Cysto 04/04/22 - Unobstructed, no b.t. UA today negative for blood and infection. Reviewed cysto findings with pt. Hematuria workup 03/2022 concluded and negative. 3. 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 Two episodes of DVT 2008 and 2016. 4. Nocturia (R35.1: Nocturia) 2x/night. Daytime frequency depends on fluid intake. Pt is also diabetic which he understands can worsen his urinary sxs. Follow-up With When Contact Information [employer], Ambrocio Brower, URL [facility] [address] [place] [address]- Additional Instructions: 6 mos CXR, CT AP w/wo con, and tumor markers Patient Education Testicular Self-Exam I, Cassy Saha, personally scribed for Dr. Hitchcock on 10/03/2022 10:35:41. . Documentation recorded by the scribe, Cassy Saha, accurately reflects the services(s) I performed and decisions made by me. Authenticated by Dr. Hitchcock on 10/03/2022 10:40:14. Problem List/Past Medical History Ongoing Anticoag (more content not included)... [facility] Comment on above: Result Comment: Elec tronically Signed By: Ambrocio HITCHCOCK MD\.br\Date and Time Signed: 10/03/22 10:40 EDT\.br\Electronically Co-Signed By: Cassy Saha\.br\Date and Time Co-Signed: 10/03/22 10:36 EDT Lab Reportson 04-09-2022 Lab Reports [id number]:127 [facility] RAD - CT Reporton 04-09-2022 RAD - CT Report [id number]:127 [facility] CREATININEon 04-06-2022 Creatinine [Mass/Vol] 0.93 mg/dL Normal 0.70-1.30 [facility] Comment on above: Performed By: #### B MP, TSH, LIPID, LIVER #### [facility] [address] [address] [address] Michelle Rogers EGFR-AF MONTSERRATIAN >60 Normal >=60 [facility] Comment on above: Performed By: #### B MP, TSH, LIPID, LIVER #### [facility] [address] [address] [address] Michelle Rogers EGFR-NON AF MONTSERR[place]IAN >60 Normal >=60 [facility] Comment on above: Performed By: #### B MP, TSH, LIPID, LIVER #### [facility] [address] [address] [address] ABD/PELV WO W CONon 04-06 CT ABD/PELV WO W CON EXAMINATION: CT ABD /PELV WO W CON, 04/06/2022 6:47 AM EST HISTORY: History of malignant neoplasm of testis COMPARISON: None. TECHNIQUE: CT scan of the abdomen and pelvis was performed with and without IV contrast. CT dose reduction technique was used, including Automated Exposure Control. FINDINGS: LUNG BASES: No visible pulmonary or pleural disease. LIVER: Diffuse hypoattenuation, hepatic steatosis BILIARY: No dilatation or calcification. PANCREAS: No lesion, fluid collection, ductal dilatation, or atrophy. SPLEEN: No enlargement or focal lesion. ADRENALS: No mass or enlargement. KIDNEYS: Multiple left cortical hypodensities likely cysts. No hydronephrosis or obstructing nephrolithiasis BOWEL/MESENTERY: No visible mass, obstruction, or bowel wall thickening. Normal appendix AORTA/VASCULAR: No aneurysm or dissection. RETROPERITONEUM: No mass or adenopathy. LYMPH NODES: Recent number of normal and borderline enlarged mesenteric lymph nodes URINARY BLADDER: No visible focal wall thickening, lesion, or calculus. PELVIC ORGANS: No visible mass. Pelvic organs appropriate for patient age. ABDOMINAL WALL: No mass or hernia. BONES: No bony lesion or fracture. OTHER: Negative. IMPRESSION: No definite metastatic disease Increased number of normal and borderline enlarged mesenteric lymph nodes, nonspecific Electronically authenticated by: EVELIA ASENCIO Date: 2022-04-06 12:14 Normal [facility] Coding Summary.on 04-05-2022 Coding Summary. CD:[id number] Gh0bWw +PGhlYWQ+BL8JYTBwW58fkENeu P9RI8gANB2PIWSIEAZKSU9AJO6 feQC3VXcrX4IdhqSn OofoiSVaUC76QBd1GAZ3fOnhRF qywB6ddFJiU6z9UzFxGK39mV48 ACntLDXrBiO3XbRrthucyAGf W8wkCaRzjSJzHoj+PHRhYmxlIH etTXOkTXraXHVuZuRyfCnrNI2j Kg5bYKDvPAFdqBfxiFWbAdJj j8dmRPRmLIruLL7jeFcrH7NhlR J9YZCeu9h0Tu55cEP+PHRkIHN0 lDrbRKetk162OxDot7tqZWM3 cWHkNEonCYM8C99hf5A1DLFwYM UkTDS5rUL0mI9tzQovwqgkT7Dd eDEiDzG3VVP0bPJdhB3ckYpg ugvqfO0iXru+J72YHU0EDSTFXL 2OCeo0N0HiZzmxkSX+ZH98LBRa OD35lKIfoCEfr7clySa0WiCo QEVuGYX6gBfrWUntg3RlPFLeF4 7gsMJxz1G4LGSbvPdqjVUtXfFd pFD0eO9nMKgfeckus4ghhgwd Rtxga2eoft25tH76V57uWHdrRQ NpCVO6SYGpCQSbgYzadp5aqO8d Ii8+WDjyq1ick1tnqKp7OaEq YFXwkvPisAxxUAK9g2MkUj16Q9 WyzIexq8PkUnp9pt18xOYof8W2 zTY9DBhxTPIvjZ2qUVmrBpV3 RVLxDmKxlX06vPIxWPbvCf5brA bvoBoeTU5zDVUkbvqxIIFzhO8y EFJbxHOugUmhAI7zWAHuoakv b353XlQjAVO8XWQiqCMyP4HbmJ 8sLeLyZNNzDJIlC6XuyDSmHBmj C377NCzcGgV2KVFcwkSpG8Qr JMFfwNpmSjW2x6I0Ks5Br0Wwbb joVNI1LSsiZQUpUrAeLbUxClL8 I0SzVra3DTAmuUaeZJ5qN1Aq ZPXscqvokvgroIG6PEXlPBIhyF 62tVFkFMkoMe8of5X7q238HGVl RFWtaZ00Hk8qhKtdVBCvkYZR iY6rizsuc3fcpkktPxEvWMDmZT y2AEa1XJRncFsbElKqYYA6JdY6 NNP6pXHidH6ipLhlfuqabM1c Oyc+A14niU5bBFD6QFT0wpvbKE FzlaKhUM20FL00G3TfZqdeuXVo bGU+YBSnsdOalIhbVC8lHtVq q9vtu3AnMUfdC1NzFGMkVSdoDk k6BPBmAZS2rTH6uA6iEMRnJTga l5A0vEW3D4DhdnOmqm4es7ys XMHlRTnkZ09doMBlg1P0LAPnuR X9OIQgbIlyOrDpdQ44Skp+PGNv fBlxp2JuHfzkb9rtc9deuMx9 DpFlTKOkeaFtjZmjSXF5l8EjWt 36K56dFPfuKXCiVBFpLUDyMTLd gUgojs0ocO9dPc0+PGNvbCB3 gTF0pW0iHNXvSzK9MTbfA643Qv OsuYCwWlawp7muo6dobNa8SxUa JWBidwJozWjsNXE0v5FdQz71 X13zNQiqHSQvPXTwBFQmOPOblX zkfa2weY7kKy7+GH1tv5ioyf06 dW32gCX+DKAyJFG1bGslNWwk EMMbqZ9wBCveXfK8OPOpDfJjqJ 48wSUoHKwiKk8agTxxpSydNQ2p ETQbimprd596LlBmk7yoZSLn gGRhYZalDNX7F05qd2W2MBIwLK BoMRW4kLO2wQ8daWqxwttgjBCi xDeknjDqfTxlSBbmDTylB478 IHRvcDsnPlBhdGllbnQgTmFtZT b2O8MbDmo4SXSwnMxnNH2xfVZt UBvpZv7nnOcapEerTW0yJZPr drgpa061AgMgt7xnAGUebZHhAQ afXRC0P80wv9E2KRGsFKQePUQ9 lBT8sU9ziJhxsqpsfILauSqc huAqhDaqATqdLMvsD242KROfhX wbEpJbzqVaJMXepVW5SY55PI08 gCWlw4I6aTN8M6PiRXTimqgh udxxhQP5SZMvHPCiaX25Hc1wmO tbOn7nWPLfEDB8NRQaiKTcS8Io tU8zIpTqRXJyKZBrL9DzjVWd TGbtB665YGuzJbH1VZXqsiAaJ2 HuYEBxaDfdVbK1o1H2Of0DG4K8 JK22OS18mPNsk1D1gBV7S1Gf NDEpexriloptwBK6HCTfZQUbrW 37Wo9mjEjcYr5jQFUxLDZ2QGRh xBWuZ8KixM3eLeGlUHTkCMAb N5ZfzWKtEWynC482HTpsYbD6FM RgutLxQ3UsBZQwqTmmLpN6z0N8 Eo5XYIf2DQ21CJ42vNHuh1S1 wAV4S1IfIWFcrtkmenwhzUM3DM PsERDlmD39Wm3oaSeqTd6xFKUs BMP7QUGtzFFzX3BueR2cRhYu JXWhMFRyV7OijABuGIlfA936LU qjHhP9CZKqbnHuP0ZcNISqwCig EqY6k2J6Az1UKDLmKA14FBM2 sKW5FQ11VG89P9IrAxndcSYduE U+PHRhYmxlIHdpZHRoPScxMDAl WdAkdQcfSG1tHu6iOFVvMZVp nYjjnOVrYhGcl9xbMBGnJNtxUI 3ewYhqB4NesVA3AOWto6d3Ea66 H62zD6GyqLB+ALWpwDO2bJS2 cG9sYlDaUbM2DEnhN782MqLcwV TiSnwfy3yxg6fcuWs4XlG8CYOf asXrxCxyLJN3e9UmTc91O37u IHdpZHRoPSIxNSUiIHZhbGlnbj 2bdL7nSw4+YJEjqLB1kZX2lI9i ZiUfMzT3POjiV380IfFadSAp Noond8hyj3ihiYn1KfRvYDNajs IcbDnlKPT9i9WvGl74C3RevEaw n5EtNdr3nz28pJPiz9Y5vEB9 S4XsBUGfdfvxuEIfyLdfUQ5bRQ PrbthcNPLtfI0iHOHyV3q2EsId KmS0EZjfG6OqyeD5LWCijMZz RFrpUED2U13cq0S3KSJiCLGsHM R6uLE3kU6bzGmwgdgztBGjbMax paCphOskWXweMLlnB618NSTf lNxtUYTopD0dZOUwoUUmrJxpCB 4wNTBpbjsnPllBVEVTLCBNQVJL TWD9P4WzJjh8BMJryWlcVR9i dOCnWGgkPo1bnLzbfOrbDF3xAI MyrvrwDMIaaU2pZRXomMCozPco YP7lEGHxuwatu969YpYcBMR0 XJNkwAYfB2CrwC7xNwGsBTAhVX HzP7YkiNStTRlgY911YEhvYhM7 QFMzwdOqC5LtIKPawYsaOjW2 q2S2Qc2oTW6rDe5eLWsiXN96BR 40gMUph1B8qAG2I8EwJSUgpmej hjjcsHH6WKWzXGBxgU38lKXh EIamMr5pu5N9f766WPWbBVQisA 78Ua3svPloGJKqjEWYmT7ohlkh c1wmpbizBdKfUUUePYo2RRh3 KQZvkRmxVwWqBSO4DfI5EOY8bG YhxG0isNeruzgytZ9wGum+Mzkg EOGfvnM1J4FiSqk6BPAkpZnn ES9gtHJsCLymLd1nzMuxrRqpTG 0uLARclhahEEYooK5rIPTfpLTa zUamCW2cKOFkvvylz831KhLr IYI2TDAmaBKzA6ZqbA5oOcWrAQ VuCKPqC3KhjTDyFVulD378XGsg AiD1XNEqfyPdD5BbESGedVeq AkZ9m5E2Li5CXIcjUX03TB89qW Ubu0A4rNI1C5TxQOSfqovthfrj hEY5KGAxAFBelP08jQVzSHrj Ve9fe7P7e617DHGcASIhcW77Xw 2rjIvjXXXtyZQDiP3rumxsu7jj rumjFmFdRMImORa4JGu1DRJi uJrgGqAlEYI0DdW8JRI8qQCodU 0rtElqgocddH8lTqv+O8A0fYK2 aWVudDwvdGQ+KK64cd31N9Sr QcjpYjc8HFBqMTK1mIM5yG3oRS LfLUjdq1K6mKS8X9WmzxNuqz9s t2zcBAAqFTulD72wzJVoy5C3 GREpaZK6TAXqrJnkLsDmmB93Sn c+KWUjpKggt7KoSmaxo3dkq7ad iCg5FoMwHQNtyaBnhFusRKW8 x0VxVd32D91vTMytEHGeJTYeKG SvVOPzaAtunk5mjQ2mYn3+PGNv iPH7aXK1iG8tZqJzPjE7QMpf V223ZnDzmRSvOxzpk0gel1qpjC g2NbYwDIIirvXjgUpmIAM4c5Ec Bx62H3KgmFekx3NeWlc8dw41 gMWky8X5jLX2Q7JzUPSphqxscE HdiZopXD1xUSCpgtqdTJKazH8p YUYiP4g3ZoJjJlV0EQrfZ2Us vlU9MHScpUIgFOCugDOBeZ1its guc9infumcJuEkZJMhBMi4KFh5 NGIjyWhaZaIgKWR1DaX0RBV4 xYQccH6bxZwfxpzgcX1zGzo+UG x6y2pldRRfTN5teGS0MT95KO78 pLWph0A3eQF9V3GlEUJucsxm mxcgrSS2HZEaOAYcwH23Rc0lzE xoNs9dRDZbAOF4HVTuaRRmI2Yw aK3xKhKyCIWrHCWdS2EkrTKz BDekQ462HFnuWgS7YBVvawWgK9 AmUMUkoRxvQgR1h2U5Kf7PVH94 HG23SK51wIQux9H8tIN9G3Jw XHLpdisnzhmuhQJ4VKLgZKRsuL 51Pk2fjAxeMm1dAYLsXZB7GZEu mXBqZ2KdbL8hWwWvMBXtOAEx Y7HvfVJqCSduC018CJpqQeX2NR KmciDgT7WlAOTzaLvlTmX3f6S2 Ri4VSf11KL63UK84lCRqn1L9 fXU0M2DaIMGcwmknhpselUV4CU GyEZNiaX98Ux4uxCmuNy0cGOHz PXP4SUNwpAFvL2BjaR1hExMa JAKnHQFsC2SzrQCvIObnO695WH ouOoW6AYYgeuFqU3NhSHTimZmm DeX8z4A9Ye8EYNuukwc7F7Nd PjwvdHI+OA36QPVeTE16xRQidM Qnr2gqnVn1XmKdEXHoHYN9pKii KXfri8QjLSBpG27jsNPve1V3 IGNv (more content not included)... [facility] Consent for Procedure/Surger yon 04-04-2022 Consent for Procedure/Surgery [id number]#1.00CD:127 [facility] Consent for Treatmenton - Consent for Treatment [id number]#1.00CD:127 [facility] IntraOperative Documentson 0 04-04-2022 IntraOperative Documents [id number]#[id number]:127 [facility] Main OR Intraoperative Recor don 04-04-2022 Main OR Intraoperative Record IntraOp Document Type FTURO Summary Primary Physician: Ambrocio HITCHCOCK MD Finalized Date/Time: 04/04/22 09:23:13 Pt. Name: EDDIEROMERO D.O.B./Sex: 1980 Male Med Rec #: [id number] Physician: Ambrocio HITCHCOCK MD Financial #: [id number] Pt. Type: O Room/Bed: / Admit/Disch: 04/04/22 08:09:47 - Institution: Case Times FTURO Entry 1 Patient Times In Room 04/04/22 09:06:00 Out Room 04/04/22 09:28:00 Procedure Times Start 04/04/22 09:11:00 Stop 04/04/22 09:23:00 Anesthesia Times Last Modified By: Andrés SPENCER, SADIQOR, Raquel 04/04/22 09:21:21 Case Attendance FTURO Entry 1 Entry 2 Entry 3 Case Attendee Ambrocio HITCHCOCK MD RN, CNOR, Sandee FORD, Christina García Role Performed Surgeon - Primary Intake Worker - Primary Scrub - Primary Time In 04/04/22 09:11:00 04/04/22 09:05:00 04/04/22 09:05:00 Time Out 04/04/22 09:23:00 04/04/22 09:05:00 04/04/22 09:23:00 Procedure CYSTOSCOPY LOCAL(.) CYSTOSCOPY LOCAL(.) CYSTOSCOPY LOCAL(.) Comments Last Modified By: Andrés RN, CNOR, Andrés RN, CNOR, Andrés RN, SADIQOR, Raquel 04/04/22 Raquel 04/04/22 Raquel 04/04/22 09:22:00 09:11:52 09:22:00 Surgical Procedures FTURO Entry 1 Procedure Description Procedure CYSTOSCOPY LOCAL Modifiers . Surgeon Description cysto Primary Procedure Yes Primary Surgeon Ambrocio HITCHCOCK MD Start 04/04/22 09:05:00 Stop 04/04/22 09:23:00 Anesthesia Type Local Surgical Service Urology Wound Class 2 - Clean-Contaminated Last Modified By: VÍCTOR Bowen RN, Ruthann 04/04/22 09:21:27 General Case Data FTURO Pre-Care Text: Classifies surgical wound, implements aseptic technique, initiates traffic control Entry 1 Case Information OR URO 1 FT Case Level None Wound Class 2 - Clean-Contaminated Specialty Urology Preop Diagnosis HEMATURIA HX OF Postop Same As Preop No TESTICULAR CANCER Postop Diagnosis HEMATURIA HX OF Outcomes Met? Yes TESTICULAR CANCER Last Modified By: VÍCTOR Bowen RN, Ruthann 04/04/22 09:12:38 Post-Care Text: The patient is free from signs and symptoms of infection EU IntraOp - FTURO Pre-Care Text: Implements protective measures prior to operative or invasive procedure, confirms identity before the operative or invasive procedure, verifies operative procedure, surgical site, and laterality Entry 1 EU Perioperative Protocols Procedure(s) CYSTOSCOPY LOCAL(.) Patient Identity Birthday, ID Band Verified (select at Check, Patient least 2): Participation Consents / H and P HandP, Surgery/Procedure Operative Site N/A Verified Consent Marking Verified Surgical Site Yes Laterality Verified n/a Verified Procedure Verified Yes Correct Patient Yes Position Verified Availability Equipment, Medication Time Out CORETTA CHAMBERS, Ambrocio Brower, Verified (If Participants VÍCTOR Bowen RN, Applicable) Sandee García CST, Christina Moe Time Out Complete 04/04/22 09:09:00 Allergies Reviewed? Yes Allergies Reviewed Self/Patient With Body Position Supine Prep Area penis Prep Agents Betadine Solution Skin. Condition Unable to Visualize Additional None Specimens Collected Vitals - EU Blood Pressure 131/88 Pulse 107 bpm Respirations SPO2 EBL 0 IandO - EU Total Intake 0 mL Total Output 0 mL Outcomes Met? Yes Last Modified By: VÍCTOR Bowen RN, Ruthann 04/04/22 09:14:15 Post-Care Text: The patient is free from signs and symptoms of injury caused by extraneous objects Sign Out FTURO Entry 1 Before Patient Leaves OR Nurse verbally Yes Nurse verbally n/a confirms with the confirms with the team the name of team that the procedure(s) instrument, sponge, recorded and needle counts are correct (or N/A) Nurse verbally n/a Nurse verbally n/a confirms with the confirms with the team how the team whether there specimen is labeled are any equipment (including patient problems to be name), if applicable addressed Sign Out Complete 04/04/22 09:01:00 Last Modified By: VÍCTOR Bowen RN, Ruthann 04/04/22 09:01:19 Case Comments Finalized By: VÍCTOR Bowen RN, Ruthann Document Signatures Signed By: VÍCTOR Bowen RN, Ruthann 04/04/22 09:04 VÍCTOR Bowen RN, Ruthann 04/04/22 09:23 [facility] Main OR Preoperative Recordo n 04-04-2022 Main OR Preoperative Record Holding Area Document Type FTURO Summary Primary Physician: Ambrocio HITCHCOCK MD Finalized Date/Time: 04/04/22 08:53:56 Pt. Name: ROMERO MORGAN/Sex: 1980 Male Med Rec #: [id number] Physician: Ambrocio HITCHCOCK MD Financial #: [id number] Pt. Type: O Room/Bed: / Admit/Disch: 04/04/22 08:09:47 - Institution: Case Times Holding FTURO Pre-Care Text: Verifies consent for planned procedure, identifies individual values and wishes concerning care, includes family members in perioperative teaching Secures patient's records' belongings, and valuables, maintains patient's dignity and privacy, and maintains patient confidentiality Entry 1 In Holding 04/04/22 08:16:00 Outcomes Met? Yes Last Modified By: Marisel Gandara LPN 04/04/22 08:16:59 Post-Care Text: The patient participates in decisions affecting his or her perioperative plan of care The patient's right to privacy is maintained Surgery Checklist FTURO Entry 1 Patient Birthday, Patient Procedure History and Physical, Identification: Participation Verification: Surgical Consent, With Patient NPO after Midnight: No Date/Time: 04/04/22 08:17:00 Personal Items: Glasses, Jewelry Personal Items clothes Comment: Limitations: na Complaints of Pain: No Pain Comment: na Skin Integrity Intact, [place], Warm, & Dry Vitals - EU Blood Pressure 131/88 Pulse 107 bpm Respirations 18 br/min SPO2 97 % RN Reviewed Yes Last Modified By: VÍCTOR Bowen RN, Ruthann 04/04/22 08:53:55 General Comments: temp:36.4 Finalized By: Andrés SPENCER, Raquel RENEE Document Signatures Signed By: Marisel Gandara LPN 04/04/22 08:19 Marisel Gandara LPN 04/04/22 08:19 VÍCTOR Bowen RN, Ruthann 04/04/22 08:53 [facility] Operative Reporton Operative Report Patient: ROMERO MORGAN Age: 41 years Sex: Male : 1980 Associated Diagnoses: None Author: Ambrocio HITCHCOCK MD Procedure Operative Information Details: Date/ Time: 04/04/2022 09:24:00. Pre-Op Dx: Micro Hematuria - Asymptomatic - R31.21. Post-Op Dx: Same. Anesthesia Type: Local. Procedure: Local Cystoscopy. Complications: None. Risks/Benefits/Informed Consent: Surgical risks, benefits, details of the procedure have been explained to the patient, Full informed consent has been obtained. Intraoperative Information Prepped: Patient is brought back to the endoscopy suite, Patient is placed in supine position, Patient prepped in the usual fashion with Betadine solution, 2% Xylocaine Jelly is placed per Urethra, After waiting several minutes the Cystoscope is introduced. The Urethra is: Normal. The Prostatic Urethra is: Unobstructed. The Bladder is: Normal, no b.t.. The ureteral orifices: Show efflux of clear urine. Devices Implanted: None. Removal: Cystoscope is removed, The patient tolerated it well. Postoperative Information Discharge: Patient is discharged home with antibiotic coverage, Follow up arranged. [facility] Comment on above: Result Comment: Elec tronically Signed By: Ambrocio HITCHCOCK MD\.br\Date and Time Signed: 04/04/22 09:24 EST RAD - MISCon 03-28-2022 RAD - MISC [id number]#1.00CD:127 [facility] Outside Recordson 03-27-2022 Outside Records [id number]#1.00CD:127 [facility] Urine Cytology ([facility])on 0 03-27-2022 Urine Cytology Diagnosis Info Invalid Interpretation Code [facility] Comment on above: Result Comment: A:Ur ine,Urine:Voided Interpretation - MicroScopic Description - Adequacy - Gross Description Site ID:A color Yellow fixative Alcohol Specimen designated Urine received in alcohol preservative and labeled with the patient?s name, consists of 90ml clear yellow fluid. Electronically signed by : on: 03/27/2022 08:16:08 Performed By: #### 1 [id number] #### [facility] [address] [place] [address] Lab Reportson 03-23-2022 Lab Reports [id number]#1.00CD:127 [facility] Lab Reports [id number]#1.00CD:127 [facility] RAD - MISCon 03-23-2022 RAD - MISC [id number]#1.00CD:127 [facility] Transfer Inon 03-23-2022 Transfer In [id number]#1.00CD:127 [facility] XR CHEST 2 Von 03-23-2022 XR CHEST 2 V EXAMINATION: XR CHES T 2 V HISTORY: History of malignant neoplasm of testis COMPARISON: No relevant comparison available. FINDINGS: LUNGS: No significant pulmonary parenchymal abnormalities. VASCULATURE: No increased pulmonary vasculature. PLEURA: No pneumothorax, effusion, or pleural thickening. CARDIAC: No cardiomegaly or cardiac silhouette abnormality. MEDIASTINUM: No visible mass or adenopathy. BONES: No fracture or visible bone lesion. OTHER: Negative. IMPRESSION: 1. No suspicious findings to suggest metastatic disease. Electronically authenticated by: LIZZ GENTILE Date: 2022-03-23 09:07 Normal [facility] AFP (TUMOR MARKER)on 023 AFP, Serum, Tumor Marker <1.8 Normal 0.0-6.9 [facility] Comment on above: Result Comment: [employer] Electrochemiluminescence Immunoassay (ECLIA) . Values obtained with different assay methods or kits cannot be used interchangeably. Results cannot be interpreted as absolute evidence of the presence or absence of malignant disease. . This test is not interpretable in females. Performed By: #### A FP. #### [facility] [address] [place] [address] Dr. Michelle Rogers HCG QUANT TUMOR MARKERon HCG QNT TUMOR MARKER <1 Normal 0-3 [facility] Comment on above: Result Comment: [employer] Electrochemiluminescence Immunoassay (ECLIA) . The [employer] HCG + beta assay recognizes the holo-hormone, human chorionic gonadotropin (hCG), nicked forms of hCG, the beta-core fragment and the free beta-subunit in human serum and plasma. . Results obtained with different test methods or kits cannot be used interchangeably. This assay is intended for the early detection of . The result should not be used for treatment or for diagnostic purposes without confirmation of the diagnosis by another medically established diagnostic product or procedure. . This test was developed and its performance characteristics determined by [employer]. It has not been cleared or approved by the Food and Drug Administration for use as a tumor marker. . This test is not interpretable as a tumor marker in females. Performed By: #### B MP, TSH, LIPID, LIVER #### [facility] [address] [place] [address] Dr. Michelle Rogers Physician Referralon 023 Physician Referral [id number]#[id number]:127 [facility] LDHon 03-21-2022 LDH 115 U/L Normal 85-227 [facility] Comment on above: Performed By: #### L DH #### [facility] [address] [place] [address] Dr. Michelle Rogers Auth for Release of Medical Recordson 03-20-2022 Auth for Release of Medical Records [id number]#1.00CD:127 [facility] Screenson 03-20-2022 Screens [id number]#1.00CD:127 [facility] Transfer Inon 03-20-2022 Transfer In [id number]#[id number]:127 Normal [facility] Ambulatory Visit Summaryon 0 03-17-2022 Ambulatory Visit Summary ROMERO MORGAN :1980 Visit Date:03/17/2022 Ambulatory Visit Instructions Your Diagnosis History of testicular cancer Asymptomatic microscopic hematuria Glycosuria Tests Performed Urnls Dip Stick Auto w/o Microscopy POC 71795 CT Abdomen/Pelvis w/ + w/o Contrast -- Results Pending -- XR Chest 2 Views -- Results Pending -- Please visit your patient portal for your results or contact your primary care physician. Your Care Team Attending Physician - CORETTA CHAMBERS, Ambrocio Brower Primary Care Physician - ROMERO LOJA DC This Is Your Medications List ciprofloxacin (Cipro 500 mg Tab) Contact prescribing physician if questions or concerns apixaban (Eliquis 5 mg oral tablet) glimepiride (glimepiride 4 mg Tab) lisinopril (lisinopril 40 mg Tab) metformin (metformin 500 mg Tab) Procedures Performed Right total orchiectomy (11/28/2021). Discharge Vitals Heart Rate (Peripheral) 66 Respiratory Rate 16 Blood Pressure 128/84 Height 175 cm Height 69 in Weight 111 kg Weight 244.2 lb BMI 36.24 What to do next You Need to Schedule the Following Appointments Follow Up with CORETTA CHAMBERS, Ambrocio Brower, ENRIKEL When: Where: [address] [place] [address]- Someone Will Contact You Regarding These Appointments [facility], [facility] 10[facility]48[facility]00 EST, History of testicular cancer Medications What How Much When Instructions New ciprofloxacin (Cipro 500 mg Tab) 1 Tablets By Mouth As Directed Pt to take 1 tab the day before procedure and the 2nd tab the day of procedure once completed. Pickup at [facility]/pharmacy #[id number] Unchanged apixaban (Eliquis 5 mg oral tablet) Contact prescribing physician if questions or concerns Unchanged glimepiride (glimepiride 4 mg Tab) Contact prescribing physician if questions or concerns Unchanged lisinopril (lisinopril 40 mg Tab) Contact prescribing physician if questions or concerns Unchanged metformin (metformin 500 mg Tab) Contact prescribing physician if questions or concerns Pharmacy Information [id number]: [address], [place] [phone] Test Results Urnls Dip Stick Auto w/o Microscopy POC 68798 (03/17/2022) Bilirubin Urine Dipstick - 1+ Small Blood Urine Dipstick - 1+ Small Glucose Urine Dipstick - 3+ 1000 mg/dl Ketones Urine Dipstick - 3+ 80-160 mg/dl Leukocytes Urine Dipstick - Negative Nitrite Urine Dipstick - Negative Protein Urine Dipstick - Trace Specific Epsom Urine Dipstick - 1.020 Urine Appearance Urine Dipstick - Clear Urine Color Urine Dipstick - Yellow Urobilinogen Urine Dipstick - Normal 0.2-1 EU/dl pH Urine Dipstick - 5.5 Allergies No Known Medication Allergies Problems Ongoing - Any problem that you are currently receiving treatment for. Asymptomatic microscopic hematuria Diabetes Glycosuria History of testicular cancer Hypertension Testicular cancer Education Materials Testicular Self-Exam A self-examination of your testicles (testicular self-exam) involves looking at and feeling your testicles for abnormal lumps or swelling. Several things can cause swelling, lumps, or pain in your testicles. Some of these causes are: ? Injuries. ? Inflammation. ? Infection. ? Buildup of fluids around your testicle (hydrocele). ? Twisted testicles (testicular torsion). ? Testicular cancer. Why is it important to do a testicular self-exam? Self-examination of the testicles and the left and right groin areas may be recommended if you are at risk for testicular cancer. Your groin is where your lower abdomen meets your upper thighs. You may be at risk for testicular cancer if you have: ? An undescended testicle (cryptorchidism). ? A history of previous testicular cancer. ? A family history of testicular cancer. How to do a testicular self-exam The testicles are easiest to examine after a warm bath or shower. They are more difficult to examine when you are cold. This is because the muscles attached to the testicles retract and pull them up higher or into the abdomen. A normal testicle is egg-shaped and feels firm. It is smooth and not tender. The spermatic cord can be felt as a firm, spaghetti-like cord at the back of your testicle. Look and feel for changes ? Stand and hold your penis away from your body. ? Look at each testicle to check for lumps or swelling. ? Roll each testicle between your thumb and forefinger, feeling the entire testicle. Feel for: ? Lumps. ? Swelling. ? Discomfort. ? Check the groin area between your abdomen and upper thighs on both sides of your body. Look and feel for any swelling or bumps that are tender. These could be enlarged lymph nodes. Contact a health care provider if: ? You find any bumps or lumps, such as a small, hard, pea-sized lump. ? You find swelling, pain, or soreness. ? You see or feel (more content not included)... [facility] Ambulatory Visit Summary ROMERO MORGAN :1980 Visit Date:03/17/2022 Ambulatory Visit Instructions Your Diagnosis History of testicular cancer Asymptomatic microscopic hematuria Glycosuria Tests Performed Urnls Dip Stick Auto w/o Microscopy POC 76487 CT Abdomen/Pelvis w/ + w/o Contrast -- Results Pending -- XR Chest 2 Views -- Results Pending -- Please visit your patient portal for your results or contact your primary care physician. Your Care Team Attending Physician - Ambrocio HITCHCOCK MD Primary Care Physician - ROMERO LOJA DC This Is Your Medications List ciprofloxacin (Cipro 500 mg Tab) Contact prescribing physician if questions or concerns apixaban (Eliquis 5 mg oral tablet) glimepiride (glimepiride 4 mg Tab) lisinopril (lisinopril 40 mg Tab) metformin (metformin 500 mg Tab) Procedures Performed Right total orchiectomy (11/28/2021). Discharge Vitals Heart Rate (Peripheral) 66 Respiratory Rate 16 Blood Pressure 128/84 Height 175 cm Height 69 in Weight 111 kg Weight 244.2 lb BMI 36.24 What to do next You Need to Schedule the Following Appointments Follow Up with CORETTA CHAMBERS, Ambrocio Brower, URL When: Where: [address] [place] [phone]- Someone Will Contact You Regarding These Appointments [facility], [facility] 10:48:00 EST, History of testicular cancer Medications What How Much When Instructions New ciprofloxacin (Cipro 500 mg Tab) 1 Tablets By Mouth As Directed Pt to take 1 tab the day before procedure and the 2nd tab the day of procedure once completed. Pickup at [facility]/pharmacy #[id number] Unchanged apixaban (Eliquis 5 mg oral tablet) Contact prescribing physician if questions or concerns Unchanged glimepiride (glimepiride 4 mg Tab) Contact prescribing physician if questions or concerns Unchanged lisinopril (lisinopril 40 mg Tab) Contact prescribing physician if questions or concerns Unchanged metformin (metformin 500 mg Tab) Contact prescribing physician if questions or concerns Pharmacy Information [facility]/pharmacy #[id number]: [address], [place] [phone] Test Results Urnls Dip Stick Auto w/o Microscopy POC 16988 (03/17/2022) Bilirubin Urine Dipstick - 1+ Small Blood Urine Dipstick - 1+ Small Glucose Urine Dipstick - 3+ 1000 mg/dl Ketones Urine Dipstick - 3+ 80-160 mg/dl Leukocytes Urine Dipstick - Negative Nitrite Urine Dipstick - Negative Protein Urine Dipstick - Trace Specific Epsom Urine Dipstick - 1.020 Urine Appearance Urine Dipstick - Clear Urine Color Urine Dipstick - Yellow Urobilinogen Urine Dipstick - Normal 0.2-1 EU/dl pH Urine Dipstick - 5.5 Allergies No Known Medication Allergies Problems Ongoing - Any problem that you are currently receiving treatment for. Asymptomatic microscopic hematuria Diabetes Glycosuria History of testicular cancer Hypertension Testicular cancer Education Materials Testicular Self-Exam A self-examination of your testicles (testicular self-exam) involves looking at and feeling your testicles for abnormal lumps or swelling. Several things can cause swelling, lumps, or pain in your testicles. Some of these causes are: ? Injuries. ? Inflammation. ? Infection. ? Buildup of fluids around your testicle (hydrocele). ? Twisted testicles (testicular torsion). ? Testicular cancer. Why is it important to do a testicular self-exam? Self-examination of the testicles and the left and right groin areas may be recommended if you are at risk for testicular cancer. Your groin is where your lower abdomen meets your upper thighs. You may be at risk for testicular cancer if you have: ? An undescended testicle (cryptorchidism). ? A history of previous testicular cancer. ? A family history of testicular cancer. How to do a testicular self-exam The testicles are easiest to examine after a warm bath or shower. They are more difficult to examine when you are cold. This is because the muscles attached to the testicles retract and pull them up higher or into the abdomen. A normal testicle is egg-shaped and feels firm. It is smooth and not tender. The spermatic cord can be felt as a firm, spaghetti-like cord at the back of your testicle. Look and feel for changes ? Stand and hold your penis away from your body. ? Look at each testicle to check for lumps or swelling. ? Roll each testicle between your thumb and forefinger, feeling the entire testicle. Feel for: ? Lumps. ? Swelling. ? Discomfort. ? Check the groin area between your abdomen and upper thighs on both sides of your body. Look and feel for any swelling or bumps that are tender. These could be enlarged lymph nodes. Contact a health care provider if: ? You find any bumps or lumps, such as a small, hard, pea-sized lump. ? You find swelling, pain, or soreness. ? You see or feel (more content not included)... [facility] Ambulatory Visit Summary ROMERO MORGAN :1980 Visit Date:03/17/2022 Ambulatory Visit Instructions Your Diagnosis History of testicular cancer Asymptomatic microscopic hematuria Glycosuria Tests Performed Urnls Dip Stick Auto w/o Microscopy POC [address]10 CT Abdomen/Pelvis w/ + w/o Contrast -- Results Pending -- XR Chest 2 Views -- Results Pending -- Please visit your patient portal for your results or contact your primary care physician. Your Care Team Attending Physician - CORETTA CHAMBERS, Ambrocio Brower Primary Care Physician - ROMERO LOJA DC This Is Your Medications List ciprofloxacin (Cipro 500 mg Tab) Contact prescribing physician if questions or concerns apixaban (Eliquis 5 mg oral tablet) glimepiride (glimepiride 4 mg Tab) lisinopril (lisinopril 40 mg Tab) metformin (metformin 500 mg Tab) Procedures Performed Right total orchiectomy (11/28/2021). Discharge Vitals Heart Rate (Peripheral) 66 Respiratory Rate 16 Blood Pressure 128/84 Height 175 cm Height 69 in Weight 111 kg Weight 244.2 lb BMI 36.24 What to do next You Need to Schedule the Following Appointments Follow Up with CORETTA CHAMBERS, STEVE Russ When: Where: [address] [place] [phone]- Someone Will Contact You Regarding These Appointments [facility] 10:48:00 EST, History of testicular cancer Medications What How Much When Instructions New ciprofloxacin (Cipro 500 mg Tab) 1 Tablets By Mouth As Directed Pt to take 1 tab the day before procedure and the 2nd tab the day of procedure once completed. Pickup at [facility]/pharmacy #7997 Unchanged apixaban (Eliquis 5 mg oral tablet) Contact prescribing physician if questions or concerns Unchanged glimepiride (glimepiride 4 mg Tab) Contact prescribing physician if questions or concerns Unchanged lisinopril (lisinopril 40 mg Tab) Contact prescribing physician if questions or concerns Unchanged metformin (metformin 500 mg Tab) Contact prescribing physician if questions or concerns Pharmacy Information [facility]/pharmacy #[id number]: [address], [place] [phone] Test Results Urnls Dip Stick Auto w/o Microscopy POC 78366 (03/17/2022) Bilirubin Urine Dipstick - 1+ Small Blood Urine Dipstick - 1+ Small Glucose Urine Dipstick - 3+ 1000 mg/dl Ketones Urine Dipstick - 3+ 80-160 mg/dl Leukocytes Urine Dipstick - Negative Nitrite Urine Dipstick - Negative Protein Urine Dipstick - Trace Specific Epsom Urine Dipstick - 1.020 Urine Appearance Urine Dipstick - Clear Urine Color Urine Dipstick - Yellow Urobilinogen Urine Dipstick - Normal 0.2-1 EU/dl pH Urine Dipstick - 5.5 Allergies No Known Medication Allergies Problems Ongoing - Any problem that you are currently receiving treatment for. Asymptomatic microscopic hematuria Diabetes Glycosuria History of testicular cancer Hypertension Testicular cancer Education Materials Testicular Self-Exam A self-examination of your testicles (testicular self-exam) involves looking at and feeling your testicles for abnormal lumps or swelling. Several things can cause swelling, lumps, or pain in your testicles. Some of these causes are: ? Injuries. ? Inflammation. ? Infection. ? Buildup of fluids around your testicle (hydrocele). ? Twisted testicles (testicular torsion). ? Testicular cancer. Why is it important to do a testicular self-exam? Self-examination of the testicles and the left and right groin areas may be recommended if you are at risk for testicular cancer. Your groin is where your lower abdomen meets your upper thighs. You may be at risk for testicular cancer if you have: ? An undescended testicle (cryptorchidism). ? A history of previous testicular cancer. ? A family history of testicular cancer. How to do a testicular self-exam The testicles are easiest to examine after a warm bath or shower. They are more difficult to examine when you are cold. This is because the muscles attached to the testicles retract and pull them up higher or into the abdomen. A normal testicle is egg-shaped and feels firm. It is smooth and not tender. The spermatic cord can be felt as a firm, spaghetti-like cord at the back of your testicle. Look and feel for changes ? Stand and hold your penis away from your body. ? Look at each testicle to check for lumps or swelling. ? Roll each testicle between your thumb and forefinger, feeling the entire testicle. Feel for: ? Lumps. ? Swelling. ? Discomfort. ? Check the groin area between your abdomen and upper thighs on both sides of your body. Look and feel for any swelling or bumps that are tender. These could be enlarged lymph nodes. Contact a health care provider if: ? You find any bumps or lumps, such as a small, hard, pea-sized lump. ? You find swelling, pain, or soreness. ? You see or feel (more content not included)... Normal [facility] Patient Educationon 03-17-19 Patient Education Urology Testicular Self-Exam A self-examination of your testicles (testicular self-exam) involves looking at and feeling your testicles for abnormal lumps or swelling. Several things can cause swelling, lumps, or pain in your testicles. Some of these causes are: ? Injuries. ? Inflammation. ? Infection. ? Buildup of fluids around your testicle (hydrocele). ? Twisted testicles (testicular torsion). ? Testicular cancer. Why is it important to do a testicular self-exam? Self-examination of the testicles and the left and right groin areas may be recommended if you are at risk for testicular cancer. Your groin is where your lower abdomen meets your upper thighs. You may be at risk for testicular cancer if you have: ? An undescended testicle (cryptorchidism). ? A history of previous testicular cancer. ? A family history of testicular cancer. How to do a testicular self-exam The testicles are easiest to examine after a warm bath or shower. They are more difficult to examine when you are cold. This is because the muscles attached to the testicles retract and pull them up higher or into the abdomen. A normal testicle is egg-shaped and feels firm. It is smooth and not tender. The spermatic cord can be felt as a firm, spaghetti-like cord at the back of your testicle. Look and feel for changes ? Stand and hold your penis away from your body. ? Look at each testicle to check for lumps or swelling. ? Roll each testicle between your thumb and forefinger, feeling the entire testicle. Feel for: ? Lumps. ? Swelling. ? Discomfort. ? Check the groin area between your abdomen and upper thighs on both sides of your body. Look and feel for any swelling or bumps that are tender. These could be enlarged lymph nodes. Contact a health care provider if: ? You find any bumps or lumps, such as a small, hard, pea-sized lump. ? You find swelling, pain, or soreness. ? You see or feel any other changes in your testicles. Summary ? A self-examination of your testicles (testicular self-exam) involves looking at and feeling your testicles for any changes. ? Self-examination of the testicles and the left and right groin areas may be recommended if you are at risk for testicular cancer. ? You should check each of your testicles for lumps, swelling, or discomfort. ? You should check for swelling or tender bumps in your groin area between your lower abdomen and upper thighs. This information is not intended to replace advice given to you by your health care provider. Make sure you discuss any questions you have with your health care provider. Document Released: 04/30/2001 Document Revised: 05/15/2019 Document Reviewed: 12/18/2016 [employer] Patient Education ? 2019 [employer] Normal [facility] Urine Cytology ([facility])on 0 03-17-2022 Method of Extraction Voided Normal [facility] Comment on above: Performed By: #### 1 [id number] #### [facility] [address] [place] [address] Number of Jars 1 Invalid Interpretation Code [facility] Comment on above: Performed By: #### 1 [id number] #### [facility] [address] [place] [address] Specimen Urine Normal [facility] Comment on above: Performed By: #### 1 [id number] #### [facility] [address] [place] [address] Type of Service Technical Only Normal [facility] Comment on above: Performed By: #### 1 [id number] #### [facility] [address] [place] [address] Urology Office/Clinic Noteon 03-17-2022 Urology Office/Clinic Note HPI Staff New Pt, new to the area, getting established with Urologist. Hx of Testicular Cacner. S/P Rt Orchiectomy. Also did 7 days of chemo. Discovered due to pain and swelling. 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 Denies current Urinary complaints. Does do self exams, has not noticed any changes since procedure. History of Present Illness Tests reviewed: reviewed UA. I have reviewed the previous health record information and history for this patient from Dr. Hitchcock. I have reviewed and verified the staff HPI to be accurate for this encounter. There have been no associated fever, chills, flank pain, or blood in the urine. Denies any urinary infections since last encounter. Review of Systems PHQ Score Initial Depression Screen Score: 0 ROS - Provider Constitutional: denies weight loss, denies hot flashes. Eyes: denies eye problems. Gastrointestinal: denies nausea, denies vomiting. Cardiovascular: denies chest pain or angina. Integumentary: no dryness Musculoskeletal: denies musculoskeletal symptoms. ENMT: denies otolaryngeal symptoms. Respiratory: no shortness of breath. Heme/Lymph: denies easy bleeding tendency, denies easy bruising tendency. Psychiatric: no confusion, no anxiety. Genitourinary: denies dysuria, denies hematuria, denies discharge, denies urinary frequency, denies urinary hesitancy, denies nocturia, denies incontinence, denies genital sores, denies decreased libido, and denies erectile dysfunction. Physical Exam Vitals & Measurements HR: 66(Peripheral) RR: 16 BP: 128/84 HT: 69 in HT: 175 cm WT: 111 kg WT: 244.2 lb BMI: 36.24 General Appearance: alert, no distress, well nourished, well developed male. Head: normocephalic . Eyes: normal orbit and globe. ENMT: normal examination of external ears. Chest: Lungs CTA, respirations non labored. Cardiovascular: regular rate and rhythm. Abdomen: soft, non distended, no tenderness, no mass or organomegaly, no hernia. Genitourinary: normal scrotum, normal L and absent R testes, normal urethra, normal epididymis, normal vas deferens/spermatic cord. Flank Pain: none. Bladder: nonpalpable. Penis: normal shaft, normal glans. Lymph Nodes: unremarkable palpation of the cervical area. Skin: warm, dry, no bruising. Psychiatric: cooperative, affect appropriate for age, normal judgement, euthymic mood. Assessment/Plan IPSS 5, shares he has no urinary complaints. 1. History of testicular cancer (Z85.47: Personal history of malignant neoplasm of testis) New patient wishing to establish care with urologist in this area due to recently moving from [place]. S/p Right Orchiectomy in 11/2021. Completed 7 days of chemotherapy. Testicular cancer was initially found due to pain and swelling. Shares he does do testicular exams and has not found anything abnormal. Patient cannot remember the type of cancer it was. We will obtain records. Pt saw Dr. Laura Sullivan, oncologist. Will order testicular tumor markers and CT AP w/wo contrast along with CXR. Advised pt to consult with local oncologist, referral placed. will get path from [place]. 2. Asymptomatic microscopic hematuria (R31.21: Asymptomatic microscopic hematuria) US today shows SMALL blood, denies gross hematuria. Ordering CT scan. Will schedule Cysto. The risks and benefits for cystoscopy have been discussed. The risks include bleeding, infection, and irritation of the bladder and urinary channel, among others. The patient, after being informed of procedural details and after questions have been answered, wishes to proceed. Full informed consent has been obtained. Will order Local anesthesia. Cipro sent to [facility]. 3. Glycosuria (R81: Glycosuria) UA today shows >=1000 mg/dL. Pt is diabetic. Follow-up With When Contact Information Ambrocio HITCHCOCK MD, URL [address] [place] [address]- Additional Instructions: Cysto, CT/CXR, and labs Patient Education Testicular Self-Exam I, Mary Reynoso, personally scribed for Dr. Hitchcock on 03/17/2022 10:49:25. . Documentation recorded by the scribe, Mary Reynoso, accurately reflects the services(s) I performed and decisions made by me. Authenticated by Dr. Hitchcock on 03/17/2022 10:53:22. Problem List/Past Medical History Ongoing Asymptomatic microscopic hematuria Diabetes Glycosuria History of testicular cancer Hypertension Testicular cancer Historical No qualifying data Procedure/Surgical History Right total orchiectomy (11/28/2021). Medications Eliquis 5 mg oral tablet glimepiride 4 mg Tab lisinopril 40 mg Tab metformin 500 mg Tab Allergies No Known Medication Allergies Social History Tobacco Never (less than 100 in lifetime) Tobacco Use:. Never Smokeless Tobacco Use:., 03/17/2022 Family History Family history is negative Lab Results Ambulatory Point of Care Results Bilirubin Urine Dipstick: 1 (more content not included)... Normal [facility] Comment on above: Result Comment: Elec tronically Signed By: Ambrocio HITCHCOCK MD\.br\Date and Time Signed: 03/17/22 10:53 EST\.br\Electronically Co-Signed By: Mary Reynoso\.br\Date and Time Co-Signed: 03/17/22 10:49 EST CBC AUTO DIFFon 01-17-2022 BASO # 0.1 103/ul Normal 0.0-0.1 [facility] Comment on above: Performed By: #### C BC #### [facility] [address] [place] [address] Dr. Michelle Rogers Basophils/100 WBC (Bld) 0.8 % Normal 0.2-2.0 [facility] Comment on above: Performed By: #### C BC #### [facility] [address] [place] [address] Dr. Michelle Rogers EO # 0.6 103/ul Normal 0.0-0.7 [facility] Comment on above: Performed By: #### C BC #### [facility] [address] [place] [address] Dr. Michelle Rogers Eosinophils/100 WBC (Bld) 10.0 % Critically high 0.9-7.0 [facility] Comment on above: Performed By: #### C BC #### [facility] [address] [place] [address] Dr. Michelle Rogers Erythrocyte distribution width (RBC) [Ratio] 12.2 % Normal 11.0-15.0 [facility] Comment on above: Performed By: #### C BC #### [facility] [address] [place] [address] Dr. Michelle Rogers Hematocrit (Bld) [Volume fraction] 41.1 % Critically low 42.0-54.0 [facility] Comment on above: Performed By: #### C BC #### [facility] [address] [place] [address] Dr. Michelle Rgoers Hemoglobin (Bld) [Mass/Vol] 14.3 g/dL Normal 14.0-18.0 [facility] Comment on above: Performed By: #### C BC #### [facility] [address] [place] [address] Dr. Michelle Rogers IG # 0.01 10e3/ul Normal 0.00-0.03 [facility] Comment on above: Performed By: #### C BC #### [facility] [address] [place] [address] Dr. Michelle Rogers IG % 0.2 % Normal 0.0-0.5 [facility] Comment on above: Performed By: #### C BC #### [facility] [address] [place] [address] Dr. Michelle Rogers LYMPH # 1.6 103/ul Normal 1.2-3.8 [facility] Comment on above: Performed By: #### C BC #### [facility] [address] [place] [address] Dr. Michelle Rogers Lymphocytes/100 WBC (Bld) 26.3 % Normal 20.5-60.0 [facility] Comment on above: Performed By: #### C BC #### [facility] [address] [place] [address] Dr. Michelle Rogers MANUAL DIFF REQ NO Normal [facility] Comment on above: Performed By: #### C BC #### [facility] [address] [place] [address] Dr. Michelle Rogers MCH (RBC) [Entitic mass] 30.3 pg Normal 25.9-34.0 [facility] Comment on above: Performed By: #### C BC #### [facility] [address] [place] [address] Dr. Michelle Rogers MCHC (RBC) [Mass/Vol] 34.8 g/dL Normal 29.9-35.2 [facility] Comment on above: Performed By: #### C BC #### [facility] [address] [place] [address] Dr. Michelle Rogers MCV (RBC) [Entitic vol] 87.1 fL Normal 80.0-94.0 [facility] Comment on above: Performed By: #### C BC #### [facility] [address] [place] [address] Dr. Michelel Rogers MONO # 0.5 103/ul Normal 0.3-0.8 [facility] Comment on above: Performed By: #### C BC #### [facility] [address] [place] [address] Dr. Michelle Rogers Monocytes/100 WBC (Bld) 8.3 % Normal 1.7-12.0 [facility] Comment on above: Performed By: #### C BC #### [facility] [address] [address] [address] Michelle Rogers NEUT # 3.2 103/ul Normal 1.4-6.5 [facility] Comment on above: Performed By: #### C BC #### [facility] [address] [address] [address] Michelle Rogers Neutrophils/100 WBC (Bld) 54.4 % Normal 43.0-75.0 [facility] Comment on above: Performed By: #### C BC #### [facility] [address] [place] [address] Dr. Michelle Rogers Platelet mean volume (Bld) [Entitic vol] 9.8 fL Normal 9.5-13.5 [facility] Comment on above: Performed By: #### C BC #### [facility] [address] [place] [address] Dr. Michelle Rogers PLT 230 103/ul Normal 150-450 [facility] Comment on above: Performed By: #### C BC #### [facility] [address] [place] [address] Dr. Michelle Rogers RBC 4.72 106/ul Normal 4.70-6.10 [facility] Comment on above: Performed By: #### C BC #### [facility] [address] [place] [address] Dr. Michelle Rogers WBC 5.9 103/ul Normal 4.0-11.0 [facility] Comment on above: Performed By: #### C BC #### [facility] [address] [place] [address] Dr. Michelle Rogers GLYCOHEMOGLOBIN A1Con 2021 ADA RECOMMENDATION SEE BELOW Normal [facility] Comment on above: Result Comment: ADA RECOMMENDED LIMIT 4.0 - 6.0 ADA THERAPEUTIC TARGET < 7.0 ACTION SUGGESTED > 7.0 Performed By: #### B MP, TSH, LIPID, LIVER #### [facility] [address] [place] [address] Dr. Michelle Rogers Glucose [Mass/Vol] 194 mg/dL Normal [facility] Comment on above: Performed By: #### B MP, TSH, LIPID, LIVER #### [facility] [address] [address] [address] Michelle Rogers HbA1c (Bld) [Mass fraction] 8.4 % Critically high 4.5-6.2 [facility] Comment on above: Performed By: #### B MP, TSH, LIPID, LIVER #### [facility] [address] [address] [address] Michelle Rogers LIPID PROFILEon 01-17-2022 CHOL-HDL RATIO NORM SEE BELOW Normal [facility] Comment on above: Result Comment: 3.3 - 4.4 LOW RISK 4.4 - 7.1 AVERAGE RISK 7.1 - 11.0 MODERATE RISK >11.0 HIGH RISK Performed By: #### B MP, TSH, LIPID, LIVER #### [facility] [address] [address] [address] Michelle Rogers Cholesterol [Mass/Vol] 168 mg/dL Normal <=200 [facility] Comment on above: Performed By: #### B MP, TSH, LIPID, LIVER #### [facility] [address] [address] [address] Michelle Rogers Cholesterol in HDL [Mass/Vol] 31 mg/dL Critically low 40-60 [facility] Comment on above: Performed By: #### B MP, TSH, LIPID, LIVER #### [facility] [address] [address] [address] Michelle Rogers Cholesterol in LDL [Mass/Vol] 79.4 mg/dL Normal [facility] Comment on above: Performed By: #### B MP, TSH, LIPID, LIVER #### [facility] [address] [address] [address] Michelle Rogers Cholesterol.total/Ch olesterol in HDL [Mass ratio] 5.4 {ratio} Normal [facility] Comment on above: Performed By: #### B MP, TSH, LIPID, LIVER #### [facility] [address] [address] [address] Michelle Rogers HDL NORMAL > or = 60 mg/dl - LO W CARDIOVASCULAR RISK <40 mg/dl - HIGH CARDIOVASCULAR RISK Normal [facility] Comment on above: Performed By: #### B MP, TSH, LIPID, LIVER #### [facility] [address] [address] [address] Michelle Rogers LDL CALC NORMAL SEE BELOW Normal [facility] Comment on above: Result Comment: <100 mg/dl OPTIMAL 100 - 129 mg/dl NEAR OR ABOVE OPTIMAL 130 - 159 mg/dl BORDERLINE HIGH 160 - 189 mg/dl HIGH >190 mg/dl VERY HIGH Performed By: #### B MP, TSH, LIPID, LIVER #### [facility] [address] [address] [address] Michelle Rogers Triglyceride [Mass/Vol] 288 mg/dL Critically high <=150 [facility] Comment on above: Performed By: #### B MP, TSH, LIPID, LIVER #### [facility] [address] [address] [address] Michelle Rogers VLDL CALC 57.6 mg/dL Normal [facility] Comment on above: Performed By: #### B MP, TSH, LIPID, LIVER #### [facility] [address] [address] [address] Michelle Rogers LIVER PROFILEon 01-17-2022 Albumin [Mass/Vol] 3.8 g/dL Normal 3.4-5.0 [facility] Comment on above: Performed By: #### B MP, TSH, LIPID, LIVER #### [facility] [address] [address] [address] Michelle Rogers Albumin/Globulin [Mass ratio] 1.0 {ratio} Normal [facility] Comment on above: Performed By: #### B MP, TSH, LIPID, LIVER #### [facility] [address] [address] [address] Michelle Rogers ALP [Catalytic activity/Vol] 98 U/L Normal 46-116 [facility] Comment on above: Performed By: #### B MP, TSH, LIPID, LIVER #### [facility] [address] [address] [address] Michelle Rogers ALT [Catalytic activity/Vol] 42 U/L Normal 16-63 [facility] Comment on above: Performed By: #### B MP, TSH, LIPID, LIVER #### [facility] [address] [place] [address] Dr. Michelle Rogers AST [Catalytic activity/Vol] 26 U/L Normal 15-37 [facility] Comment on above: Performed By: #### B MP, TSH, LIPID, LIVER #### [facility] [address] [place] [address] Dr. Michelle Rogers BILI, CONJUGATED 0.1 mg/dL Normal 0.0-0.2 [facility] Comment on above: Performed By: #### B MP, TSH, LIPID, LIVER #### [facility] [address] [place] [address] Dr. Michelle Rogers Bilirubin [Mass/Vol] 0.4 mg/dL Normal 0.2-1.0 [facility] Comment on above: Performed By: #### B MP, TSH, LIPID, LIVER #### [facility] [address] [place] [address] Dr. Michelle Rogers Globulin (S) [Mass/Vol] 3.8 g/dL Normal [facility] Comment on above: Performed By: #### B MP, TSH, LIPID, LIVER #### [facility] [address] [place] [address] Dr. Michelle Rogers Protein [Mass/Vol] 7.6 g/dL Normal 6.4-8.2 [facility] Comment on above: Performed By: #### B MP, TSH, LIPID, LIVER #### [facility] [address] [place] [address] Dr. Michelle Rogers MICROALBUMIN, RAND URon 01-05 mALB <1.3 Normal <=30.0 [facility] Comment on above: Performed By: #### B MP, TSH, LIPID, LIVER #### [facility] [address] [place] [address] Dr. Michelle Rogers PROF CHEM 8 (BAS METB)on Anion gap [Moles/Vol] 11.7 mmol/L Normal [facility] Comment on above: Performed By: #### B MP, TSH, LIPID, LIVER #### [facility] [address] [address] [address] Michelle Rogers Calcium [Mass/Vol] 8.8 mg/dL Normal 8.5-10.1 [facility] Comment on above: Performed By: #### B MP, TSH, LIPID, LIVER #### [facility] [address] [place] [address] Dr. Michelle Rogers Chloride [Moles/Vol] 101 mmol/L Normal 98-107 [facility] Comment on above: Performed By: #### B MP, TSH, LIPID, LIVER #### [facility] [address] [place] [address] Dr. Michelle Rogers CO2 [Moles/Vol] 26.4 mmol/L Normal 21.0-32.0 [facility] Comment on above: Performed By: #### B MP, TSH, LIPID, LIVER #### [facility] [address] [place] [address] Dr. Michelle Rogers Creatinine [Mass/Vol] 1.03 mg/dL Normal 0.70-1.30 [facility] Comment on above: Performed By: #### B MP, TSH, LIPID, LIVER #### [facility] [address] [place] [address] Dr. Michelle Rogers EGFR-AF MONTSERRATIAN >60 Normal >=60 [facility] Comment on above: Performed By: #### B MP, TSH, LIPID, LIVER #### [facility] [address] [place] [address] Dr. Michelle Rogers EGFR-NON AF MONTSERRATIAN >60 Normal >=60 [facility] Comment on above: Performed By: #### B MP, TSH, LIPID, LIVER #### [facility] [address] [place] [address] Dr. Michelle Rogers Glucose [Mass/Vol] 373 mg/dL Critically high 74-106 [facility] Comment on above: Performed By: #### B MP, TSH, LIPID, LIVER #### [facility] [address] [place] [address] Dr. Michelle Rogers Potassium [Moles/Vol] 4.1 mmol/L Normal 3.5-5.1 [facility] Comment on above: Performed By: #### B MP, TSH, LIPID, LIVER #### [facility] [address] [place] [address] Dr. Michelle Rogers Sodium [Moles/Vol] 135 mmol/L Critically low 136-[address] [facility] Comment on above: Performed By: #### B MP, TSH, LIPID, LIVER #### [facility] [address] [place] [address] Dr. Michelle Rogers Urea nitrogen [Mass/Vol] 17.0 mg/dL Normal 7.0-18.0 [facility] Comment on above: Performed By: #### B MP, TSH, LIPID, LIVER #### [facility] [address] [place] [address] Dr. Michelle Rogers Urea nitrogen/Creatinine [Mass ratio] 16.5 mg/mg Normal [facility] Comment on above: Performed By: #### B MP, TSH, LIPID, LIVER #### [facility] [address] [place] [address] Dr. Michelle Rogers TSHon 01-17-2022 TSH 1.801 uIU/mL Normal 0.358-3.[address] [facility] Comment on above: Performed By: #### B MP, TSH, LIPID, LIVER #### [facility] [address] [place] [address] Dr. Michelle Rogers INSULINon 11-16-2021 Insulin 14.4 uIU/mL Normal 2.6-24.9 [facility] Comment on above: Performed By: #### B MP, TSH, LIPID, LIVER #### [facility] [address] [place] [address] Dr. Michelle Rogers CBC AUTO DIFFon 11-15-2021 BASO # 0.0 103/ul Normal 0.0-0.1 [facility] Comment on above: Performed By: #### C BC #### [facility] [address] [place] [address] Dr. Michelle Rogers Basophils/100 WBC (Bld) 0.7 % Normal 0.2-2.0 [facility] Comment on above: Performed By: #### C BC #### [facility] [address] [place] [address] Dr. Michelle Rogers EO # 0.4 103/ul Normal 0.0-0.7 [facility] Comment on above: Performed By: #### C BC #### [facility] [address] [place] [address] Dr. Michelle Rogers Eosinophils/100 WBC (Bld) 6.5 % Normal 0.9-7.0 [facility] Comment on above: Performed By: #### C BC #### [facility] [address] [place] [address] Dr. Michelle Rogers Erythrocyte distribution width (RBC) [Ratio] 12.5 % Normal 11.0-15.0 [facility] Comment on above: Performed By: #### C BC #### [facility] [address] [place] [address] Dr. Michelle Rogers Hematocrit (Bld) [Volume fraction] 41.8 % Critically low 42.0-54.0 [facility] Comment on above: Performed By: #### C BC #### [facility] [address] [place] [address] Dr. Michelle Rogers Hemoglobin (Bld) [Mass/Vol] 14.2 g/dL Normal 14.0-18.0 [facility] Comment on above: Performed By: #### C BC #### [facility] [address] [place] [address] Dr. Michelle Rogers IG # 0.01 10e3/ul Normal 0.00-0.03 [facility] Comment on above: Performed By: #### C BC #### [facility] [address] [place] [address] Dr. Michelle Rogers IG % 0.2 % Normal 0.0-0.5 [facility] Comment on above: Performed By: #### C BC #### [facility] [address] [place] [address] Dr. Michelle Rogers LYMPH # 1.4 103/ul Normal 1.2-3.8 [facility] Comment on above: Performed By: #### C BC #### [facility] [address] [place] [address] Dr. Michelle Rogers Lymphocytes/100 WBC (Bld) 24.4 % Normal 20.5-60.0 [facility] Comment on above: Performed By: #### C BC #### [facility] [address] [place] [address] Dr. Michelle Rogers MANUAL DIFF REQ NO Normal [facility] Comment on above: Performed By: #### C BC #### [facility] [address] [place] [address] Dr. Michelle Rogers MCH (RBC) [Entitic mass] 30.7 pg Normal 25.9-34.0 [facility] Comment on above: Performed By: #### C BC #### [facility] [address] [place] [address] Dr. Michelle Rogers MCHC (RBC) [Mass/Vol] 34.0 g/dL Normal 29.9-35.2 [facility] Comment on above: Performed By: #### C BC #### [facility] [address] [place] [address] Dr. Michelle Rogers MCV (RBC) [Entitic vol] 90.5 fL Normal 80.0-94.0 [facility] Comment on above: Performed By: #### C BC #### [facility] [address] [place] [address] Dr. Michelle Rogers MONO # 0.5 103/ul Normal 0.3-0.8 [facility] Comment on above: Performed By: #### C BC #### [facility] [address] [place] [address] Dr. Michelle Rogers Monocytes/100 WBC (Bld) 9.0 % Normal 1.7-12.0 [facility] Comment on above: Performed By: #### C BC #### [facility] [address] [place] [address] Dr. Michelle Rogers NEUT # 3.4 103/ul Normal 1.4-6.5 [facility] Comment on above: Performed By: #### C BC #### [facility] [address] [address] [address] Michelle Rogers Neutrophils/100 WBC (Bld) 59.2 % Normal 43.0-75.0 [facility] Comment on above: Performed By: #### C BC #### [facility] [address] [address] [address] Michelle Rogers Platelet mean volume (Bld) [Entitic vol] 9.6 fL Normal 9.5-13.5 [facility] Comment on above: Performed By: #### C BC #### [facility] [address] [address] [address] Michelle Rogers PLT 215 103/ul Normal 150-450 [facility] Comment on above: Performed By: #### C BC #### [facility] [address] [place] [address] Dr. Michelle Rogers RBC 4.62 106/ul Critically low 4.70-6.10 [facility] Comment on above: Performed By: #### C BC #### [facility] [address] [address] [address] Michelle Rogers WBC 5.7 103/ul Normal 4.0-11.0 [facility] Comment on above: Performed By: #### C BC #### [facility] [address] [address] [address] Michelle Rogers GLYCOHEMOGLOBIN A1Con 2021 ADA RECOMMENDATION SEE BELOW Normal [facility] Comment on above: Result Comment: ADA RECOMMENDED LIMIT 4.0 - 6.0 ADA THERAPEUTIC TARGET < 7.0 ACTION SUGGESTED > 7.0 Performed By: #### A 1C #### [facility] [address] [address] [address] Michelle Rogers Glucose [Mass/Vol] 186 mg/dL Normal [facility] Comment on above: Performed By: #### A 1C #### [facility] [address] [address] [address] Michelle Rogers HbA1c (Bld) [Mass fraction] 8.1 % Critically high 4.5-6.2 [facility] Comment on above: Performed By: #### A 1C #### [facility] [address] [address] [address] Michelle Rogers LIPID PROFILEon 11-15-2021 CHOL-HDL RATIO NORM SEE BELOW Normal [facility] Comment on above: Result Comment: 3.3 - 4.4 LOW RISK 4.4 - 7.1 AVERAGE RISK 7.1 - 11.0 MODERATE RISK >11.0 HIGH RISK Performed By: #### B MP, TSH, LIPID, LIVER #### [facility] [address] [address] [address] Michelle Rogers Cholesterol [Mass/Vol] 181 mg/dL Normal <=200 [facility] Comment on above: Performed By: #### B MP, TSH, LIPID, LIVER #### [facility] [address] [address] [address] Michelle Rogers Cholesterol in HDL [Mass/Vol] 34 mg/dL Critically low 40-60 [facility] Comment on above: Performed By: #### B MP, TSH, LIPID, LIVER #### [facility] [address] [address] [address] Michelle Rogers Cholesterol in LDL [Mass/Vol] 112.2 mg/dL Normal [facility] Comment on above: Performed By: #### B MP, TSH, LIPID, LIVER #### [facility] [address] [address] [address] Michelle Rogers Cholesterol.total/Ch olesterol in HDL [Mass ratio] 5.3 {ratio} Normal [facility] Comment on above: Performed By: #### B MP, TSH, LIPID, LIVER #### [facility] [address] [address] [address] Michelle Rogers HDL NORMAL > or = 60 mg/dl - LO W CARDIOVASCULAR RISK <40 mg/dl - HIGH CARDIOVASCULAR RISK Normal [facility] Comment on above: Performed By: #### B MP, TSH, LIPID, LIVER #### [facility] [address] [address] [address] Michelle Rogers LDL CALC NORMAL SEE BELOW Normal [facility] Comment on above: Result Comment: <100 mg/dl OPTIMAL 100 - 129 mg/dl NEAR OR ABOVE OPTIMAL 130 - 159 mg/dl BORDERLINE HIGH 160 - 189 mg/dl HIGH >190 mg/dl VERY HIGH Performed By: #### B MP, TSH, LIPID, LIVER #### [facility] [address] [address] [address] Michelle Rogers Triglyceride [Mass/Vol] 174 mg/dL Critically high <=150 [facility] Comment on above: Performed By: #### B MP, TSH, LIPID, LIVER #### [facility] [address] [address] [address] Michelle Rogers VLDL CALC 34.8 mg/dL Normal [facility] Comment on above: Performed By: #### B MP, TSH, LIPID, LIVER #### [facility] [address] [place] [address] Dr. Michelle Rogers PROF 14(COMP METB)on 022 Albumin [Mass/Vol] 4.0 g/dL Normal 3.4-5.0 [facility] Comment on above: Performed By: #### B MP, TSH, LIPID, LIVER #### [facility] [address] [address] [address] Michelle Rogers Albumin/Globulin [Mass ratio] 1.2 {ratio} Normal [facility] Comment on above: Performed By: #### B MP, TSH, LIPID, LIVER #### [facility] [address] [address] [address] Michelle Rogers ALP [Catalytic activity/Vol] 71 U/L Normal 46-116 [facility] Comment on above: Performed By: #### B MP, TSH, LIPID, LIVER #### [facility] [address] [address] [address] Michelle Rogers ALT [Catalytic activity/Vol] 73 U/L Critically high 16-63 [facility] Comment on above: Performed By: #### B MP, TSH, LIPID, LIVER #### [facility] [address] [address] [address] Michelle Rogers Anion gap [Moles/Vol] 13.2 mmol/L Normal [facility] Comment on above: Performed By: #### B MP, TSH, LIPID, LIVER #### [facility] [address] [address] [address] Michelle Rogers AST [Catalytic activity/Vol] 35 U/L Normal 15-37 [facility] Comment on above: Performed By: #### B MP, TSH, LIPID, LIVER #### [facility] [address] [place] [address] Dr. Michelle Rogers Bilirubin [Mass/Vol] 0.9 mg/dL Normal 0.2-1.0 [facility] Comment on above: Performed By: #### B MP, TSH, LIPID, LIVER #### [facility] [address] [place] [address] Dr. Michelle Rogers Calcium [Mass/Vol] 8.8 mg/dL Normal 8.5-10.1 [facility] Comment on above: Performed By: #### B MP, TSH, LIPID, LIVER #### [facility] [address] [place] [address] Dr. Michelle Rogers Chloride [Moles/Vol] 103 mmol/L Normal 98-107 [facility] Comment on above: Performed By: #### B MP, TSH, LIPID, LIVER #### [facility] [address] [place] [address] Dr. Michelle Rogers CO2 [Moles/Vol] 26.8 mmol/L Normal 21.0-32.0 [facility] Comment on above: Performed By: #### B MP, TSH, LIPID, LIVER #### [facility] [address] [place] [address] Dr. Michelle Rogers Creatinine [Mass/Vol] 0.96 mg/dL Normal 0.70-1.30 [facility] Comment on above: Performed By: #### B MP, TSH, LIPID, LIVER #### [facility] [address] [place] [address] Dr. Michelle Rogers EGFR-AF MONTSERRATIAN >60 Normal >=60 [facility] Comment on above: Performed By: #### B MP, TSH, LIPID, LIVER #### [facility] [address] [place] [address] Dr. Michelle Rogers EGFR-NON AF MONTSERRATIAN >60 Normal >=60 [facility] Comment on above: Performed By: #### B MP, TSH, LIPID, LIVER #### [facility] [address] [address] [address] Michelle Rogers Globulin (S) [Mass/Vol] 3.4 g/dL Normal [facility] Comment on above: Performed By: #### B MP, TSH, LIPID, LIVER #### [facility] [address] [address] [address] Michelle Rogers Glucose [Mass/Vol] 168 mg/dL Critically high 74-106 [facility] Comment on above: Performed By: #### B MP, TSH, LIPID, LIVER #### [facility] [address] [place] [address] Dr. Michelle Rogers Potassium [Moles/Vol] 4.0 mmol/L Normal 3.5-5.1 [facility] Comment on above: Performed By: #### B MP, TSH, LIPID, LIVER #### [facility] [address] [place] [address] Dr. Michelle Rogers Protein [Mass/Vol] 7.4 g/dL Normal 6.4-8.2 [facility] Comment on above: Performed By: #### B MP, TSH, LIPID, LIVER #### [facility] [address] [place] [address] Dr. Michelle Rogers Sodium [Moles/Vol] 139 mmol/L Normal 136-145 [facility] Comment on above: Performed By: #### B MP, TSH, LIPID, LIVER #### [facility] [address] [place] [address] Dr. Micehlle Rogers Urea nitrogen [Mass/Vol] 18.0 mg/dL Normal 7.0-18.0 [facility] Comment on above: Performed By: #### B MP, TSH, LIPID, LIVER #### [facility] [address] [place] [address] Dr. Michelle Rogers Urea nitrogen/Creatinine [Mass ratio] 18.8 mg/mg Normal [facility] Comment on above: Performed By: #### B MP, TSH, LIPID, LIVER #### [facility] [address] [place], [place] [address] Dr. Michelle Rogers URIC ACID SERUMon 11-15-2021 Urate [Mass/Vol] 5.2 mg/dL Normal 3.5-7.2 [facility] Comment on above: Performed By: #### B MP, TSH, LIPID, LIVER #### [facility] [address] [place], [place] [address] Dr. Michelle Rogers Vital Signs Date Time Vital Sign Value Performing Clinician Facility 10-24-2022 13:00-0400 Blood Pressure Location d Al-Marrawi [facility] 10-24-2022 13:00-0400 Body temperature 98.24 [degF] Mhd Al-Marrawi [facility] 10-24-2022 13:00-0400 Diastolic blood pressure 92 mm[Hg] Mhd Al-Marrawi [facility] 10-24-2022 13:00-0400 Heart rate 89 /min Mhd Al-Marrawi [facility] 10-24-2022 13:00-0400 Mean blood pressure 109 mm[Hg] Mhd Al-Marrawi [facility] 10-24-2022 13:00-0400 Respiratory rate 16 /min Mhd Al-Marrawi [facility] 10-24-2022 13:00-0400 SaO2% (BldA) [Mass fraction] 98 % Mhd Al-Marrawi [facility] 10-24-2022 13:00-0400 Systolic blood pressure 143 mm[Hg] Mhd Al-Marrawi [facility] 10-03-2022 09:50-0400 Blood Pressure Location Ambrocio HITCHCOCK [facility] 10-03-2022 09:50-0400 Body temperature 98.6 [degF] Ambrocio HITCHOCCK [facility] 10-03-2022 09:50-0400 Diastolic blood pressure 81 mm[Hg] Ambrocio HITCHCOCK [facility] 10-03-2022 09:50-0400 Heart rate 77 /min Ambrociosascha HITCHCOCK [facility] 10-03-2022 09:50-0400 Systolic blood pressure 131 mm[Hg] Ambrociosascha HITCHCOCK [facility] 03-17-2022 09:50-0500 Blood Pressure Location Ambrocio HITCHCOCK [facility] 03-17-2022 09:50-0500 Diastolic blood pressure 84 mm[Hg] Ambrociosascha HITCHCOCK [facility] 03-17-2022 09:50-0500 Heart rate 66 /min Ambrociosascha HITCHCOCK [facility] 03-17-2022 09:50-0500 Respiratory rate 16 /min Ambrocio HITCHCOCK [facility] 03-17-2022 09:50-0500 Systolic blood pressure 128 mm[Hg] Ambrociosascha HITCHCOCK [facility] Encounters Encounter Date Encounter Type Care Provider Facility Start: 01-02-2023 End: 01-02-2023 ambulatory ISIDRO BANKS Not Available Start: 10-24-2022 End: 10-25-2022 ambulatory Edgard Margot Menjivar Facility:[facility] Start: 10-24-2022 End: 10-25-2022 ambulatory Ambrocio HITCHCOCK Facility:[facility] Start: 10-24-2022 End: 10-24-2022 [facility] Start: 10-24-2022 End: 10-24-2022 [facility] Start: 10-03-2022 End: 10-04-2022 ambulatory Ambrocio HITCHCOCK Facility:[facility] Start: 10-03-2022 End: 10-03-2022 Patient encounter procedure Ambrocio HITCHCOCK [facility] Start: 04-06-2022 End: 04-07-[address] AMBROCIO HITCHCOCK . Facility: Start: 04-04-2022 End: 04-05-2022 ambulatory Ambrocio HITCHCOCK Facility:[facility] Start: 04-04-2022 End: 04-04-2022 Patient encounter procedure Ambrocio HITCHCOCK [facility] Start: 03-21-2022 End: 03-22-[address] ISIDRO BANKS Facility: Start: 03-17-2022 ambulatory Ambrocio HITCHCOCK Facility :[facility] Start: 03-17-2022 End: 03-18-2022 ambulatory Ambrocio HITCHCOCK Facility:[facility] Start: 03-17-2022 End: 03-17-2022 Patient encounter procedure Ambrocio HITCHCOCK [facility] Start: 01-21-2022 Encounter for genera l adult medical examination without abnormal findings DR ISIDRO BANKS [facility] Start: 01-17-2022 End: 01-18-2022 ambulatory DINORA HUERTA Facility: Start: 01-17-2022 End: 12-14-2022 Encounter for general adult medical examination without abnormal findings DINORA HUERTA Facility:[facility] Start: 11-15-2021 End: 11-16-2021 ambulatory DINORA HUERTA Facility:[facility] Procedures Date Procedure Procedure Detail Performing Clinician Start: 11-28-2021 Right total orchidectomy Ambrocio HITCHCOCK Plan of Treatment Date Care Activity Detail Author Start: 04-02-2023 [facility] P[facility] Date Payer Category Payer Unknown [id number] 1980 Unknown [id number] 2.16.84 [id number] 1980 Unknown [id number] 2.16.84 [id number] 1982 Unknown [id number] 2.16.84 [id number] 1982 Unknown [id number] 2.16.84 [id number] 1982 Unknown [id number] [id number] 1982 Unknown [id number] 2.16.8 [id number] 1982 Unknown [id number] 2.16.8 [id number] 1982 Unknown [id number] 2.16.8 [id number] 1982 Unknown [id number] 2.16.8 [id number] 1982 Unknown [id number] 2.16.8 [id number] 1982 Unknown [id number] 2.16.8 [id number] 1982 Unknown [id number] 2.16.8 [id number] Social History Date Type Detail Facility Start: 03-17-2022 Tobacco smoking status Never s moked tobacco (finding) [facility] Tobacco smoking status Never [facility] Sex Assigned At Male [facility] Functional Status Date Assessment Result Facility 10-03-2022 Functional Status N/A [facility] 03-17-2022 Functional Status N/A [facility] Clinical Notes 03-17-2022 to 10-03-2022 Note Date & Type Note Facility 10-03-2022 Hospital Discharg e instructions Follow Up Care 10/03/2022 10:43:25 With:Jose Menjivar Address: [facility] [address] [place] [phone] Business (1) When: Unknown Comments:Will obtain labs for tumor markers and CBC with differential and CMP now and every 6 month and if his alpha-fetoprotein, beta-hCG and LDH are normal then continue annual imaging with CT of abdomen and pelvis and a chest x-ray in March 2023. If the tumor markers are abnormal now then we will obtain imaging now. Return to the office in March if the tumor markers are negative or after the scans and the tumor markers are positive. [facility] 10-03-2022 [facility] Discharg e instructions Patient Education 10/03/2022 10:31:32 Testicular Self-Exam Testicular Self-Exam A self-examination of your testicles (testicular self-exam) involves looking at and feeling your testicles for abnormal lumps or swelling. Several things can cause swelling, lumps, or pain in your testicles. Some of these causes are: Injuries. Inflammation. Infection. Buildup of fluids around the testicle (hydrocele). Twisted testicles (testicular torsion). Testicular cancer. You may be at risk for testicular cancer if you have: ?An undescended testicle (cryptorchidism). ?A history of previous testicular cancer. ?A family history of testicular cancer. General tips and recommendations The testicles are easiest to examine after a warm bath or shower. They are more difficult to examine when you are cold because the muscles attached to the testicles retract and pull them up higher or into the abdomen. A normal testicle is egg-shaped and feels firm. It is smooth and not tender. It is normal to feel a firm, spaghetti-like cord at the back of your testicle. This is the spermatic cord. How to do a testicular self-exam 1.Stand and hold your penis away from your body. 2.Look at each testicle to check for changes in appearance, such as swelling or changes in size or shape. 3.Roll each testicle between your thumb and forefinger, feeling the entire testicle. Feel for: Lumps. Swelling. Discomfort. 4.Check the groin area between your abdomen and upper thighs on both sides of your body. Look and feel for any swelling or bumps that are tender. These could be enlarged lymph nodes. Contact a health care provider if: You find any bumps or lumps, such as a small, hard, pea-sized lump. You find swelling, pain, or soreness. You see or feel any other changes in your testicles. Summary A self-examination of your testicles (testicular self-exam) involves looking at and feeling your testicles for any changes. Check each of your testicles for lumps, swelling, or discomfort. These changes can be caused by many things. Check for swelling or tender bumps in your groin area between your lower abdomen and upper thighs. This information is not intended to replace advice given to you by your health care provider. Make sure you discuss any questions you have with your health care provider. Document Revised: 12/29/2019 Document Reviewed: 12/29/2019 [employer] Patient Education 2022 [employer]. Follow Up Care 09/25/2022 15:29:11 With:CORETTA CHAMBERS, Ambrocio Brower, URL Address: [facility] [address] , [place] [address]- When: Unknown [facility] 04-04-2022 Note [id number]:[id number] [facility] 04-04-2022 Hospital Discharg e instructions Patient Education 04/04/2022 09:23:52 [facility] - Cystoscopy Discharge Instructions (CUSTOM) Cystoscopy Voiding after the procedure: there may be some pain, burning, urgency, frequency and blood tinged urine following the procedure. These symptoms usually resolve within 2-5 days. Drink the amount of fluid it takes to keep the urine pink to yellow or clear in color. Drinking enough water and fluids will help to ease any discomfort after your procedure. If you are having problems that seem out of the ordinary, please call. If unable to contact your physician and you feel it is an emergency, go to the nearest emergency room or call 911 Diet you may resume your normal diet. Activity you may resume your normal activities Call if you have a fever over 100 degrees. Follow Up Care 03/17/2022 11:16:31 With:Ambrocio HITCHCOCK Address: [facility] [address] [place] [address]- Business (1) When:10/02/2022 09:23:38 [facility] 04-04-2022 Note Custom Cystoscopy ? Voiding after the procedure: there may be some pain, burning, urgency, frequency and blood tinged urine following the procedure. These symptoms usually resolve within 2-5 days. Drink the amount of fluid it takes to keep the urine pink to yellow or clear in color. Drinking enough water and fluids will help to ease any discomfort after your procedure. ? If you are having problems that seem out of the ordinary, please call. ? If unable to contact your physician and you feel it is an emergency, go to the nearest emergency room or call 911 ? Diet ? you may resume your normal diet. ? Activity ? you may resume your normal activities ? Call if you have a fever over 100 degrees. [facility] 03-17-2022 Hospital Discharg e instructions Patient Education 03/17/2022 10:35:59 Testicular Self-Exam Testicular Self-Exam A self-examination of your testicles (testicular self-exam) involves looking at and feeling your testicles for abnormal lumps or swelling. Several things can cause swelling, lumps, or pain in your testicles. Some of these causes are: Injuries. Inflammation. Infection. Buildup of fluids around your testicle (hydrocele). Twisted testicles (testicular torsion). Testicular cancer. Why is it important to do a testicular self-exam? Self-examination of the testicles and the left and right groin areas may be recommended if you are at risk for testicular cancer. Your groin is where your lower abdomen meets your upper thighs. You may be at risk for testicular cancer if you have: An undescended testicle (cryptorchidism). A history of previous testicular cancer. A family history of testicular cancer. How to do a testicular self-exam The testicles are easiest to examine after a warm bath or shower. They are more difficult to examine when you are cold. This is because the muscles attached to the testicles retract and pull them up higher or into the abdomen. A normal testicle is egg-shaped and feels firm. It is smooth and not tender. The spermatic cord can be felt as a firm, spaghetti-like cord at the back of your testicle. Look and feel for changes Stand and hold your penis away from your body. Look at each testicle to check for lumps or swelling. Roll each testicle between your thumb and forefinger, feeling the entire testicle. Feel for: ?Lumps. ?Swelling. ?Discomfort. Check the groin area between your abdomen and upper thighs on both sides of your body. Look and feel for any swelling or bumps that are tender. These could be enlarged lymph nodes. Contact a health care provider if: You find any bumps or lumps, such as a small, hard, pea-sized lump. You find swelling, pain, or soreness. You see or feel any other changes in your testicles. Summary A self-examination of your testicles (testicular self-exam) involves looking at and feeling your testicles for any changes. Self-examination of the testicles and the left and right groin areas may be recommended if you are at risk for testicular cancer. You should check each of your testicles for lumps, swelling, or discomfort. You should check for swelling or tender bumps in your groin area between your lower abdomen and upper thighs. This information is not intended to replace advice given to you by your health care provider. Make sure you discuss any questions you have with your health care provider. Document Released: 04/30/2001 Document Revised: 05/15/2019 Document Reviewed: 12/18/2016 [employer] Patient Education 2020 [employer]. Follow Up Care 11/03/2021 14:24:28 With:Ambrocio HITCHCOCK MD, URL Address: [address] [place] [id number]- When: Unknown [facility] Evaluation + Plan note Future Appointments Appointment Date:03/28/2022 12:15:00 PM Scheduled Provider: Location:[facility] Appointment Type:Urology CALL PAT FT Appointment Date:04/04/2022 09:00:00 AM Scheduled Provider: Location:[facility] Appointment Type:Urology FT Diagnostic Tests PendingBeta hCG Quantitative 03/17/22Alpha Fetoprotein Tumor Marker 03/17/22Lactate Dehydrogenase 03/17/22Urine Cytology ([facility]) 03/17/22 [facility] Evaluation + Plan note Future Appointments Appointment Date:04/27/2022 10:45:00 AM Scheduled Provider:Jordon Stout DO Location:FT.ONCOLOGY Appointment Type:ONC Office Visit New 45 (FT) Appointment Date:10/03/2022 09:30:00 AM Scheduled Provider:Ambrocio HITCHCOCK MD Location:[facility] Appointment Type:URO Office Visit [facility] Evaluation + Plan note Future Appointments Appointment Date:10/12/2022 11:15:00 AM Scheduled Provider:Jordon Stout DO Location:FT.ONCOLOGY Appointment Type:ONC Office Visit 45 (FT) Appointment Date:04/02/2023 10:30:00 AM Scheduled Provider:Ambrocoi HITCHCOCK MD Location:[facility] Appointment Type:URO Office Visit Diagnostic Tests PendingBeta hCG Quantitative 10/03/22Alpha Fetoprotein Tumor Marker 10/03/22Lactate Dehydrogenase 10/03/22 [facility] Evaluation + Plan note Future Appointments Appointment Date:03/27/2023 09:00:00 AM Scheduled Provider: Location:.ONCOLOGY Appointment Type:ONC Office Visit 30 (FT) Appointment Date:04/02/2023 10:30:00 AM Scheduled Provider:Ambrocio HITCHCOCK MD Location:[facility] Appointment Type:URO Office Visit [facility] Evaluation + Plan note Future Appointments Appointment Date:03/27/2023 09:00:00 AM Scheduled Provider: Location:.ONCOLOGY Appointment Type:ONC Office Visit 30 (FT) Appointment Date:04/02/2023 10:30:00 AM Scheduled Provider:Ambrocio HITCHCOCK MD Location:[facility] Appointment Type:URO Office Visit Diagnostic Tests PendingAlpha Fetoprotein Tumor Marker 10/24/22 [facility] Hospital course Narrative No data available for this section [facility] Hospital Discharge instructions No data available for this section [facility] Progress note No data available for this section [facility] Reason for referral (narrative) Referred by: Ambrocio HITCHCOCK MD [facility] Summary Purpose Family History No Family History Records FoundNo Family History Records FoundNo Family History Records Found Advance Directives No Advanced Directives Records FoundNo Advanced Directives Records FoundNo Advanced Directives Records Found Additional Source Comments Patient Care team informatio n (unrecognized section and content) Personnel Name: ROMERO LOJA DC Address: Address: [address] Personnel Name: ROMERO LOJA DC Address: Address: [address] Personnel Name: ROMERO LOJA DC Address: Address: [address] Personnel Name: ROMERO LOJA DC Address: Address: [address] Personnel Name: ROMERO LOJA DC Address: Address: [address] (unrecognized sect ion and content) No Status Records FoundNo Status Records FoundNo Status Records Found INFORMATION SOURCE (unrecogn ized section and content) DATE CREATED AUTHOR 04/12/2022 [facility] DATE CREATED AUTHOR AUTHOR'S ORGANIZ ATION 01/04/2023 [facility] DATE CREATED AUTHOR AUTHOR'S ORGANIZ ATION 03/10/2023 [facility] FOR RECORDS PERTAINING TO PATIENTS WHO ARE OR HAVE BEEN ENROLLED IN A CHEMICAL DEPENDENCY/SUBSTANCEABUSE PROGRAM, SOME INFORMATION MAY BE OMITTED. This clinical summary was aggregated from multiple sources. Caution should be exercised in using it in the provision of clinical care. This summary normalizes information from multiple sources, and as a consequence, information in this document may materially change the coding, format and clinical context of patient data. In addition, data may be omitted in some cases. CLINICAL DECISIONS SHOULD BE BASED ON THE PRIMARY CLINICAL RECORDS. [employer] [facility]. provides no warranty or guarantee of the accuracy or completeness of information in this document.
--- NOTE | 2023-03-20 08:14 | CT_ITS ---
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 Multiplanar reconstructions were performed. ABDOMEN/PELVIS FINDINGS: Lower Chest: Unremarkable. Liver: Normal enhancement and contour. Biliary/Gallbladder: Unremarkable. Pancreas: Unremarkable. Spleen: Unremarkable. Adrenal Glands: Unremarkable. Kidneys: Small cysts are present in the left kidney. Gastrointestinal/Peritoneum: No acute abnormality. The appendix is unremarkable. No free air or free fluid. Vascular: Unremarkable. Lymph Nodes: There are a couple borderline enlarged central mesenteric lymph nodes measuring 1 cm in short axis and are stable from the previous exam. Pelvic Organs: The spermatic cord is noted to be resected from the right inguinal canal. The scrotum is not included within the [id number], but a right-sided orchiectomy as seen on the previous study. Bladder: Unremarkable. Bones: No acute osseous abnormality. Multilevel degenerative changes are present in the visualized spine with a prominent posterior disc osteophyte complex at L4-L5 contributing to moderate spinal canal and moderate bilateral neural foraminal stenosis. There is a chronic vertebral compression fracture at the superior endplate of L1. Soft tissues: There is a small fat-containing umbilical hernia. CT/CT abdomen pelvis w con IMPRESSION: 1. No evidence of metastatic disease in the abdomen and pelvis. 2. Right orchiectomy. 3. Borderline enlarged mesenteric lymph nodes appear stable, and are within the limits of normal. 4. Small fat-containing umbilical hernia. Electronically authenticated by: RICHARD DOUGLAS Date: 03/20/2023 10:20
[2023-03-20 08:17] LABS: Basophils Absolute Auto 0.1 10^3/uL (0.0-0.1); Basophils Percent Auto 0.8 % (0.2-2.0); Eosinophils Absolute Auto 0.2 10^3/uL (0.0-0.7); Hemoglobin 14.9 g/dL (14.0-18.0); Immature Granulocytes Abs Auto 0.02 10^3/uL (0.00-0.03); Immature Granulocytes Pct Auto 0.3 % (0.0-0.5); Lymphocytes Absolute Auto 1.6 10^3/uL (1.2-3.8); Lymphocytes Percent Auto 26.8 % (20.5-60.0); Mean Corpuscular HGB Conc 32.4 g/dL (29.9-35.2); Mean Corpuscular Hemoglobin 29.1 pg (25.9-34.0); Mean Corpuscular Volume 89.8 fL (80.0-94.0); Mean Platelet Volume 9.5 fL (9.5-13.5); Monocytes Absolute Auto 0.6 10^3/uL (0.3-0.8); Monocytes Percent Auto 9.2 % (1.7-12.0); Neutrophils Absolute Auto 3.5 10^3/uL (1.4-6.5); Neutrophils Percent Auto 58.9 % (43.0-75.0); Platelet Count 246 10^3/uL (150-450); Red Blood Count 5.12 10^6/uL (4.70-6.10); Red Cell Distribution Width 12.6 % (11.0-15.0)
--- NOTE | 2023-03-20 08:24 | XR_ITS ---
[address] [address] Patient Name: ROMERO MORGAN MRN: [id number] date: 1980 Sex: M Assigned Patient Location: LAB Current Patient Location: LAB Accession/Order Number: [id number] Exam Date: 03/20/2023 08:15 Report Date: 03/20/2023 08:40 At the request of: NON-STAFF PHYSICIAN Procedure: XR chest 2V EXAM: Chest x-ray HISTORY: . 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 COMPARISON: 03/21/2022 TECHNIQUE: Frontal and lateral chest FINDINGS: Heart and vascularity are unremarkable. Lungs are free of focal infiltrates. No bony abnormality is appreciated.. XR/XR chest 2V IMPRESSION: No acute heart or lung disease identified. Electronically authenticated by: EVELIA LEMONS Date: 03/20/2023 08:40
[2023-03-20 08:38] LABS: Alanine Aminotransferase 39 U/L (16-63); Alkaline Phosphatase 77 U/L (46-116); Anion Gap 12.5; Aspartate Amino Transferase 18 U/L (15-37); Bilirubin Total 0.7 mg/dL (0.2-1.0); Calcium 9.1 mg/dL (8.5-10.1); Carbon Dioxide 26.8 mmol/L (21.0-32.0); Chloride 104 mmol/L (98-107); Estimated GFR (African America >60 (>=60); Estimated GFR (Non-African Ame >60 (>=60); Glucose 172 mg/dL (74-106); Potassium 4.3 mmol/L (3.5-5.1); Sodium 139 mmol/L (136-145)
[2023-03-20 08:43] LABS: Lactate Dehydrogenase 127 U/L (85-227)
[2023-03-21 04:07] LABS: AFP, Serum, Tumor Marker <1.8 ng/mL (0.0-6.9)
== END 2023-03-20 08:01 | disposition home or self-care (01) ==
LOC: LAB 08:00
PROVIDERS: PCP Family Medicine
DX: K42.9 Umbilical hernia without obstruction or gangrene (principal); Z85.47 Personal history of malignant neoplasm of testis; Z86.718 Personal history of other venous thrombosis and embolism
CPT/HCPCS: 36415; 71046; 74177; 80053; 82105; 83615; 84702; 85025; Q9967

== ENCOUNTER 2023-09-11 09:50 | Outpatient (OUT) | payer OTHER, SELFPAY ==
[2023-09-11 10:52] LABS: Basophils Percent Auto 0.7 % (0.2-2.0); Eosinophils Absolute Auto 0.2 10^3/uL (0.0-0.7); Eosinophils Percent Auto 4.1 % (0.9-7.0); Hematocrit 45.6 % (42.0-54.0); Hemoglobin 15.3 g/dL (14.0-18.0); Immature Granulocytes Abs Auto 0.01 10^3/uL (0.00-0.03); Immature Granulocytes Pct Auto 0.2 % (0.0-0.5); Lymphocytes Absolute Auto 1.5 10^3/uL (1.2-3.8); Lymphocytes Percent Auto 28.4 % (20.5-60.0); Mean Corpuscular HGB Conc 33.6 g/dL (29.9-35.2); Mean Corpuscular Hemoglobin 29.9 pg (25.9-34.0); Mean Corpuscular Volume 89.2 fL (80.0-94.0); Mean Platelet Volume 10.2 fL (9.5-13.5); Monocytes Absolute Auto 0.4 10^3/uL (0.3-0.8); Monocytes Percent Auto 8.2 % (1.7-12.0); Neutrophils Absolute Auto 3.1 10^3/uL (1.4-6.5); Neutrophils Percent Auto 58.4 % (43.0-75.0); Platelet Count 281 10^3/uL (150-450); Red Blood Count 5.11 10^6/uL (4.70-6.10); Red Cell Distribution Width 12.2 % (11.0-15.0); White Blood Count 5.4 10^3/uL (4.0-11.0)
[2023-09-11 10:59] LABS: Lactate Dehydrogenase 128 U/L (85-227)
[2023-09-11 11:07] LABS: Alanine Aminotransferase 52 U/L (16-63); Albumin Globulin Ratio 1.1; Albumin Level 4.1 g/dL (3.4-5.0); Alkaline Phosphatase 74 U/L (46-116); Anion Gap 18.9; Aspartate Amino Transferase 28 U/L (15-37); BUN Creatinine Ratio 18.1; Bilirubin Total 0.9 mg/dL (0.2-1.0); Carbon Dioxide 21.1 mmol/L (21.0-32.0); Chloride 103 mmol/L (98-107); Estimated GFR (African America >60 (>=60); Estimated GFR (Non-African Ame >60 (>=60); Globulin 3.6 g/dL; Glucose 199 mg/dL (74-106); Sodium 139 mmol/L (136-145); Total Protein 7.7 g/dL (6.4-8.2)
[2023-09-12 04:07] LABS: AFP, Serum, Tumor Marker <1.8 ng/mL (0.0-6.9)
[2023-09-12 10:13] LABS: HCG Tumor Marker <1 mIU/mL (0-3)
== END 2023-09-11 09:51 | disposition home or self-care (01) ==
LOC: LAB 09:51
PROVIDERS: PCP Family Medicine; Visit Provider Urology
DX: Z85.47 Personal history of malignant neoplasm of testis (principal)
CPT/HCPCS: 36415; 80053; 82105; 83615; 84702; 85025

== ENCOUNTER 2024-01-01 08:08 | Outpatient (OUT) | payer OTHER, SELFPAY ==
--- OUTSIDE RECORDS SUMMARY | 2024-01-01 08:17 | XMS_ITS | CCD ---
Author Organization [facility] Care Team Providers Care S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 Name Role Phone ROMERO LOJA Primary Care Physician [phone] DINORA HUERTA Attending Unavailable DEANNA, DINORA Admitting Unavailable DEANNA, DINORA Primary Care Unavailable DINORA HUERTA Consulting Unavailable HITCHCOCK ., DR LOPEZ Admitting Unavailable HITCHCOCK ., DR LOPEZ Consulting Unavailable HITCHCOCK ., DR LOPEZ Attending Unavailable NADERER, DR NAM Moe Primary Care Unavailable LUIS M, DR EVELIA Lance Consulting Unavailable NADERELeonarda, DR NAM Moe Primary Care Unavailable YIFAN ., DR LOPEZ Admitting Unavailable HITCHCOCK ., DR LOPEZ Consulting Unavailable HITCHCOCK ., DR LOPEZ Attending Unavailable ZIEBER, DR LIZZ Brower Consulting Unavailable DEANNA, DINORA Primary Care Unavailable NADJACKELIN, DR NAM Moe Consulting Unavailable DARREN, DR NAM Moe Attending Unavailable NADJACKELIN, DR NAM Moe Admitting Unavailable DARREN, NAM Attending Unavailable Nam Banks MD Primary Care Provider Ambrocio HITCHCOCK Attending Unavailable Ambrocio HITCHCOCK Attending Unavailable Nam Banks MD Primary Care Provider Allergies Allergy Classification Reported Allergen(s) Allergy Type Date of Onset Reaction(s) Facility (1 source) No Known Medication Allergies; Translations: [No Known Medication Allergies] Propensity to adverse reactions (disorder) [facility] Repository Medications Current Medications Medication Drug Class(es) Dates Sig (Normalized) Sig (Original) apixaban 5 mg oral tablet (11 sources) Factor Xa Inhibitor Start: 06-01-2023 End: 05-31-2024 take 1 tablet by mouth in the morning apixaban (Eliquis) 5 MG tablet Indications: Personal history of DVT (deep vein thrombosis) Take 1 tablet (5 mg) by mouth in the morning and 1 tablet (5 mg) before bedtime. 60 tablet 11 06/01/2023 05/31/2024 Active Start: 03-17-2022 Eliquis 5 mg o ral tablet Refills(s) 0 Start Date: 03/17/22 Status: Ordered empagliflozin 25 mg oral tablet (9 sources) Sodium-Glucose Cotransporter 2 Inhibitor Start: 07-18-2023 Jardiance 25 MG Indications: Type 2 diabetes mellitus with hyperglycemia (CMS/HCC) TAKE 1 TABLET DAILY 30 tablet 11 07/18/2023 Active Start: 10-03-2022 take 1 tablet by nanda th once daily Jardiance 25 MG Indications: Type 2 diabetes mellitus with hyperglycemia (CMS/HCC) TAKE 1 TABLET BY MOUTH EVERY DAY 30 tablet 2 02/26/2023 Active glimepiride 4 mg oral tablet (11 sources) Sulfonylurea Start: 06-01-2023 take 1 tablet by mouth in the morning glimepiride (Amaryl) 4 MG tablet Indications: Type 2 diabetes mellitus with hyperglycemia, without long-term current use of insulin (CMS/HCC) Take 1 tablet (4 mg) by mouth in the morning and 1 tablet (4 mg) before bedtime. 60 tablet 5 06/01/2023 Active Start: 03-17-2022 take 1 tablet by nanda th in the morning glimepiride (Amaryl) 4 MG tablet Indications: Type 2 diabetes mellitus with hyperglycemia, without long-term current use of insulin (CMS/HCC) Take 1 tablet (4 mg) by mouth in the morning and 1 tablet (4 mg) before bedtime. 60 tablet 5 01/03/2023 Active lisinopril 40 mg oral tablet (11 sources) Angiotensin Converting Enzyme Inhibitor Start: 11-26-2023 take 1 tablet by mouth once daily lisinopril 40 MG tablet Indications: Essential hypertension, benign (CMS/HCC) TAKE 1 TABLET BY MOUTH EVERY DAY 90 tablet 3 11/26/2023 Active Start: 03-17-2022 lisinopril 40 mg Tab Refills(s) 0 Start Date: 03/17/22 Status: Ordered 24 hr metFORMIN hydrochloride 500 mg extended release oral tablet (11 sources) Biguanide Start: 06-04-2023 take 1 tablet by mouth every twenty-four hours in the morning metFORMIN XR (Glucophage-XR) 500 MG 24 hr tablet Indications: Type 2 diabetes mellitus with hyperglycemia (CMS/HCC) Take 1 tablet (500 mg) by mouth in the morning and 1 tablet (500 mg) before bedtime. 180 tablet 3 06/04/2023 Active Start: 03-17-2022 metformin 500 mg Tab Refills(s) [...] completed., # 2 tab(s), Refills(s) 0, [facility]acy: [id number], 175, cm, 03/17/22 9:53:00 EST, Height/Length Dosing, 111, kg,... Start Date: 03/17/22 Status: Ordered Problems Active Problems Problem Classification Problem Date Documented Da te Episodic/Chronic Cancer of testis (10 sources) Malignant tumor of testis; Translations: [Malignant neoplasm of unspecified testis, unspecified whether descended or undescended] Onset: 04-06-2022 03-17-2022 Chronic Diabetes mellitus with complications (9 sources) Type 2 diabetes mellitus with hyperglycemia; Translations: [Hyperglycemia due to type 2 diabetes mellitus] Onset: 01-21-2022 01-02-2023 Chronic Diabetes mellitus without complication (6 sources) Diabetes mellitus 03-17-2022 Chronic Diabetes mellitus without complication (7 sources) Glycosuria; Translations: [Glycosuria] Onset: 03-17-2022 Episodic Essential hypertension (13 sources) Hypertensive disorder; Translations: [Benign essential hypertension] Onset: 01-02-2023 03-17-2022 Chronic Genitourinary symptoms and ill-defined conditions (8 sources) Microscopic hematuria; Translations: [Asymptomatic microscopic hematuria] Onset: 03-17-2022 Episodic Other aftercare (1 source) Long-term current use of anticoagulant; Translations: [longterm (current) use of anticoagulants] Onset: 10-02-2022 Episodic Other nutritional; endocrine; and metabolic disorders (5 sources) Morbid obesity; Translations: [Morbid (severe) obesity due to excess calories] Onset: 11-28-2023 11-28-2023 Chronic Residual codes; unclassified (2 sources) Statin declined; Translations: [Procedure and treatment not carried out because of patient's decision for unspecified reasons] Onset: 12-31-2023 12-31-2023 Episodic Unclassified (6 sources) Asymptomatic microscopic hematuria 03-17-2022 Unclassified (4 sources) Drug therapy finding 10-02-2022 Past or Other Problems Problem Classification Problem Date Documented Da te Episodic/Chronic Cancer of testis (17 sources) History of malignant neoplasm of male genital organ; Translations: [Personal history of malignant neoplasm of testis] Onset: 03-17-2022 Episodic Phlebitis; thrombophlebitis and thromboembolism (5 sources) H/O: Deep vein thrombosis; Translations: [Personal history of other venous thrombosis and embolism] Onset: 01-02-2023 01-02-2023 Episodic Results Test Name Value Interpretation Reference Range Facility Provider Letteron 11-16-2023 Provider Letter Provider Letter November 16, 2023 ROMERO MOULTON [address] [place] [id number] : 1980 Dear Romero Moulton , This letter is to inform you the providers of [facility], [facility] (dr. Ambrocio Hitchcock) will no longer be responsible for your routine medical care due to your noncompliance. Emergency care only will be provided for the thirty (30) days following this letter. During this time period we suggest that you find another physician for your medical needs. A listing of area physicians can be found on [facility]'s website at [email or web address] or you may contact your health plan. We will be glad to forward your records to your new physician as long as we receive a signed release of records form. Sincerely, Ambrocio Hitchcock M.D., F.A.C.S. [facility] [address] [place] [phone] , option #3 Normal [facility] Reminderson 09-11-2023 Reminders Reminders From: More Valles To: TAHIRA Hitchcock; Sent: 04/02/2023 12:20:33 EST Show up: 08/06/2023 12:20:00 EDT Subject: Ct scan,CXR, tumor markers Due Date/Time: 08/27/2023 12:20:00 EDT Reminder/Recall Patient needs Ct scan Abd/pelvis w contrast, tumor markers and CXR prior to September 23 appt. Pt wants [facility] Orders, demographics, & H&P faxed to [facility]. They will precert and call pt to schedule. LM on pt's VM notifying him that [facility] will be reaching out to him to get him scheduled. Appt 09/24/23 w/PRW to review results. Per Steph @ [facility] CS, they left message on pt's VM yesterday requesting he call back to schedule. [facility] did call and speak to pt. Pt states he would call back to schedule. Prior Auth does 10/05/23. Pt does have a follow up scheduled w/PRW 09/24/23. Did LM on VM informing pt that if testing is not completed prior to appt, that he will need to call our office and RS appt w/PRW. Normal [facility] Ambulatory Visit Summaryon 0 04-02-2023 Ambulatory Visit Summary ROMERO MOULTON :1980 Visit Date:04/02/2023 Ambulatory Visit Instructions Your Diagnosis History of testicular cancer Asymptomatic microscopic hematuria Anticoagulated Tests Performed CT Abdomen/Pelvis w/ Contrast -- Results Pending -- XR Chest 2 Views -- Results Pending -- Please visit your patient portal for your results or contact your primary care physician. Your Care Team Attending Physician - Ambrocio HITCHCOCK MD Primary Care Physician - ROMERO LOJA DC This Is Your Medications List Contact prescribing physician if questions or concerns apixaban (Eliquis 5 mg oral tablet) empagliflozin (Jardiance 25 mg oral tablet) glimepiride (glimepiride 4 mg Tab) lisinopril (lisinopril 40 mg Tab) metformin (metformin 500 mg Tab) Procedures Performed Right total orchiectomy (11/28/2020). Discharge Vitals Heart Rate (Peripheral) 103 Respiratory Rate 16 Blood Pressure 137/86 Height 175 cm Height 69 in Weight 111.3 kg Weight 244.86 lb BMI 36.34 What to do next Scheduled Follow-Up Appointments Sunday 9:00 AM EST With: Tiara CHAMBERS, Jose Frost Where: [facility] Sunday 10:15 AM EDT With: Ambrocio HITCHCOCK MD Where: [facility] Outside Radiologyon 04-02-19 24 Outside Radiology [id number]#1.00TIFF [facility] Patient Educationon 04-02-19 24 Patient Education Oncology Cancer Screening for Men A cancer screening is a test or exam that checks for cancer. Your health care provider will recommend specific cancer screenings based on your age, medical history (including risk factors), and family history of cancer. Work with your health care provider to create a cancer screening schedule that protects your health. Who should have screening? All men should be considered for screening of certain cancers, including colorectal cancer, prostate cancer, lung cancer, and skin cancer. Your health care provider may recommend screenings for other types of cancer if: ? You had cancer before. ? You have a family member with cancer. ? You have abnormal genes that could increase the risk of cancer. ? You have risk factors for certain cancers, such as current or past use of tobacco products, or being overweight. When you should be screened for cancer depends on: ? Your age. ? Your medical history and your family's medical history. ? Certain lifestyle factors, such as smoking or other use of tobacco products. ? Environmental exposure, such as to asbestos. How is screening done? Colorectal cancer All adults should have screenings starting at age 45 and continuing until age 75. Your health care provider may recommend screening before age 45. You will have tests every 1?10 years, depending on your results and the type of screening test. People at increased risk should start screening at an earlier age. Talk with your health care provider about which screening test is right for you and how often you should be screened. Colorectal cancer screening looks for cancer or for growths called polyps that often form before cancer starts. Tests to look for cancer or polyps include: ? Colonoscopy or flexible sigmoidoscopy. For these procedures, a flexible tube with a small camera is inserted into the rectum. ? CT colonography. This test uses X-rays and a contrast dye to check the colon for polyps. If a polyp is found, you may need to have a colonoscopy so the polyp can be located and removed. Tests to look for cancer in the stool (feces) include: ? Guaiac-based fecal occult blood test (FOBT). This test can find blood in stool. It can be done at home with a kit. ? Fecal immunochemical test (FIT). This test can find blood in stool. For this test, you will need to collect stool samples at home. ? Stool DNA test. This test looks for blood in stool and any changes in DNA that can lead to colon cancer. For this test, you will need to collect a stool sample at home and send it to a lab. Prostate cancer Prostate cancer screening for men with average risk may start at age 50. Men with risk factors may need to be screened earlier, at ages 40?45. Talk with your health care provider about whether screening is right for you and, if so, how often you should be screened. Prostate cancer screening is done with blood tests and a digital rectal exam. During this exam, a health care provider uses a gloved finger to check prostate size. You may need to be screened for prostate cancer if: ? You have risk factors for prostate cancer, such as being or having a close family member with prostate cancer. ? You have had gene changes or a genetic condition that was passed on to you from a parent (inherited). These gene changes or genetic conditions include BRCA1 or BRCA2 gene mutations or Mejia syndrome. ? You have symptoms of prostate cancer, such as problems urinating or problems getting or keeping an erection (erectile dysfunction). When you have been screened for prostate cancer, future screening may be recommended based on the results of your blood tests. Lung cancer Lung cancer screening is done with a CT scan that looks for abnormal changes in the lungs. Discuss lung cancer screening with your health care provider if you are 50?80 years old and if any of the following apply to you: ? You currently smoke. ? You used to smoke heavily. ? You have a smoking history of 1 pack of cigarettes a day for 20 years or 2 packs a day for 10 years. ? You have quit smoking within the past 15 years. You may need to be screened every year if you smoke heavily or if you used to smoke. Skin cancer Skin cancer screening is done by checking the skin for unusual moles or spots and any changes in existing moles. Your health care provider should check your skin for signs of skin cancer at every physical exam. You should check your skin every month and tell your health care provider right away if anything looks unusual. Men with a [id number] risk for skin cancer may want to see a consumer affairs specialist (monitoring specialist) for an annual body check. What are the benefits of screening? Cancer screening is done to look for cancer in the very early stages, before it spreads and becomes harder to treat and before you would start to notice symptoms. Finding cancer early improves the chances of successful treatment. It ma (more content not included)... Normal [facility] Urology Office/Clinic Noteon 04-02-2023 Urology Office/Clinic Note Chief Complaint hx of testicular cancer HPI Staff 6 month f/u with CXR, CT and tumor markers Dx: Hx of testicular cancer Embryonal carcinoma of the right testis, asymptomatic microhematuria, anticoagulated and nocturia. Dysuria: no Incomplete bladder emptying: no Hematuria: no Frequency: no Urgency: no Nocturia: 1x Stream: good steady stream Leaking: no Post void dripping: no Wearing pads/ Depends: no Urge incontinence: no Stress incontinence: no Incontinence without Sensory Awareness: no Abdominal pain: no Flank pain: no Sexual complaints: no History of Present Illness Tests reviewed: reviewed UA, CXR, CT scan, tumor markers I have reviewed the previous health record information and history for this patient from Dr. Hitchcock. I have reviewed and verified the staff HPI to be accurate for this encounter. Review of Systems PHQ Score Initial Depression Screen Score: 0 SCORE ROS - Provider Constitutional: denies weight loss, denies hot flashes. Eyes: denies eye problems. Gastrointestinal: denies nausea, denies vomiting. Cardiovascular: denies chest pain or angina. Integumentary: no dryness Musculoskeletal: denies musculoskeletal symptoms. ENMT: denies otolaryngeal symptoms. Respiratory: no shortness of breath. Heme/Lymph: denies easy bleeding tendency, denies easy bruising tendency. Psychiatric: no confusion, no anxiety. Genitourinary: See HPI. Physical Exam Vitals & Measurements HR: 103(Peripheral) RR: 16 BP: 137/86 HT: 69 in HT: 175 cm WT: 111.3 kg WT: 244.86 lb BMI: 36.34 General Appearance: alert, no distress, well nourished, well developed male. Genitourinary: normal scrotum, normal testes, normal urethra, normal epididymis, normal vas deferens/spermatic cord. Flank Pain: none. Bladder: nonpalpable. Assessment/Plan 1. History of testicular cancer (Z85.47: Personal history of malignant neoplasm of testis) Embryonal carcinoma of the right testis, Stage 1S, [id number]. S/p right orchiectomy 11/30/20 in [place]. One cycle of adjuvant chemotherapy 01/2021. Hem onc consult 05/16/21 - Recommended active f/u and surveillance. Clinical f/u q3mos first two years, annual surveillance CT of AP and CXR 6-12 mos in first year following completion of tx regimen. Pt moved to [place] from [place] and established with this practice. Testicular tumor markers 03/21/22 all wnl. CXR 03/21/22 - Neg for mets. CT AP w/wo con 04/06/22 [facility] - Neg for mets. Increased number of normal and borderline enlarged mesenteric lymph nodes, nonspecific. 04/06/22 - Crea 0.93. eGFR >60. Previously referred to oncology to establish care. Reports his insurance did not cover care with Dr. Stout so he saw an oncologist in [place], unsure of name. Testicular tumor markers 03/20/23 all wnl. CXR 03/20/23 [facility] - Neg for mets. CT AP w/wo con 03/20/23 [facility] - Neg for mets. Borderline enlarged mesenteric lymph nodes appear stable and wnl. Discussed imaging and lab results w/ pt, no concern for metastatic disease. Will cont repeating CXR, CT scan, and tumor markers q6mos for 5 years. -6 mos w/ CXR, CT AP w con, and tumor markers 2. Asymptomatic microscopic hematuria (R31.21: Asymptomatic microscopic hematuria) Hematuria workup 03/2022 concluded and negative. [1] UA today negative for blood and infection. Denies gross hematuria. 3. Anticoagulated (Z79.01: longterm (current) use of anticoagulants) Hx of DVT, on lifelong AC (Eliquis) therapy. Two episodes of DVT 2008 and 2016. [2] Follow-up With When Contact Information YIFAN CHAMBERS, Ambrocio Brower, [facility] [address] [place] [address]- [phone] Additional Instructions: 6 mos w/ CXR, CT AP w con, and tumor markers Patient Education Cancer Screening for Men I, Portia Castaneda, personally scribed for Dr. Hitchcock on 04/02/2023 12:17:34. . Documentation recorded by the scribe, Portia Castaneda, accurately reflects the services(s) I performed and decisions made by me. Authenticated by Dr. Hitchcock on 04/02/2023 12:19:08. Problem List/Past Medical History Ongoing Anticoagulated Asymptomatic microscopic hematuria Diabetes Glycosuria History of testicular cancer Hypertension Nocturia Testicular cancer Historical No qualifying data Procedure/Surgical History Right total orchiectomy (11/28/2020). Medications Eliquis 5 mg oral tablet glimepiride 4 mg Tab Jardiance 25 mg oral tablet lisinopril 40 mg Tab metformin 500 mg Tab Allergies No Known Medication Allergies Social History Tobacco Never (less than 100 in lifetime) Tobacco Use:. Never Smokeless Tobacco Use:., 03/17/2022 Family History Family history is negative Lab Results Ambulatory Point of Care Results Bilirubin Urine Dipstick: Negative (04/02/23 11:14:00) Blood Urine Dipstick: Negative (04/02/23 11:14:00) Glucose Urine Dipstick: 2+ 500 mg/dl (04/02/23 11:14:00) Ketones Urine Dipstic (more content not included)... Normal [facility] Comment on above: Result Comment: Elec tronically Signed By: Ambrocio HITCHCOCK MD\.br\Date and Time Signed: 04/02/23 12:19 EST\.br\Electronically Co-Signed By: Portia Castaneda\.br\Date and Time Co-Signed: 04/02/23 12:17 EST Lab Reportson 03-21-2023 Lab Reports [id number]#1.00TIFF Normal [facility] Laboratory Outside Office Co pyon 03-21-2023 Laboratory Outside Office Copy [id number]#1.00TIFF Normal [facility] Outside Radiologyon 03-21-19 24 Outside Radiology [id number]#1.00TIFF Normal [facility] Outside Radiology [id number]#1.00TIFF Normal [facility] ALL CBC WITH AUTO DIFFon BASOPHILS ABSOLUTE AUTO 0.1 [facility] Basophils/100 WBC (Bld) 0.8 % 0.2 - 2.0 % [facility] Eosinophils/100 WBC (Bld) 4.0 % 0.9 - 7.0 % [facility] Erythrocyte distribution width (RBC) [Ratio] 12.6 % 11.0 - 15.0 % [facility] Hematocrit (Bld) [Volume fraction] 46.0 % 42.0 - 54.0 % [facility] Hemoglobin (Bld) [Mass/Vol] 14.9 g/dL 14.0 - 18.0 g/dL [facility] IMMATURE GRANULOCYTES ABS AUTO 0.02 [facility] Immature granulocytes/100 WBC (Bld) 0.3 % 0.0 - 0.5 % [facility] LYMPHOCYTES ABSOLUTE AUTO 1.6 [facility] Lymphocytes/100 WBC (Bld) 26.8 % 20.5 - 60.0 % [facility] MCH (RBC) [Entitic mass] 29.1 pg 25.9 - 34.0 pg [facility] MCHC (RBC) [Mass/Vol] 32.4 g/dL 29.9 - 35.2 g/dL [facility] MCV (RBC) [Entitic vol] 89.8 fL 80.0 - 94.0 fL [facility] MONOCYTES ABSOLUTE AUTO 0.6 [facility] Monocytes/100 WBC (Bld) 9.2 % 1.7 - 12.0 % [facility] NEUTROPHILS ABSOLUTE AUTO 3.5 [facility] Neutrophils/100 WBC (Bld) 58.9 % 43.0 - 75.0 % [facility] Platelet mean volume (Bld) [Entitic vol] 9.5 fL 9.5 - 13.5 fL [facility] EO # 0.2 [facility] PLT [address] [facility] RBC 5.12 [facility] WBC 6.0 [facility] Lab Reportson 03-20-2023 Lab Reports [id number]#1.00TIFF [facility] Outside Labson 03-20-2023 Outside Labs [id number]#1.00TIFF Normal [facility] Physician Orderon 03-05-2023 Physician Order [id number]#1.00TIFF [facility] CHEMISTRYOrdered By: SYSTEM SYSTEM on 10-24-2022 Albumin [Mass/Vol] 4.3 g/dL Normal 3.3 - 5.0 gm/dL [facility] Remisol Albumin/Globulin [Mass ratio] 1.1 {ratio} Normal [...] 111 mL/min/1.73 m2 Normal >=59mL/min/ 1.73 m2 [facility] Chem S Globulin (S) [Mass/Vol] 3.9 g/dL Normal 1.4 - 4.0 gm/dL [facility] Remisol Glucose [Mass/Vol] 221 mg/dL High 55 - 199 mg/dL [facility] Remisol LDH [Catalytic activity/Vol] 119 [iU]/d Normal [...] mg/mg High 10 - 20 [facility] Remisol HEMATOLOGYOrdered By: SYSTEM SYSTEM on 10-24-2022 Basophils/100 [...] 62.8 % Normal 36.0 - 75.0 % [facility] HemeAutoSS Neutrophils/Leukocyt es Auto (Bld) [Pure # fraction] 4.6 E9/L Normal 2.0 - 7.5 E9/L [facility] HemeAutoSS HEMATOLOGYOrdered By: Salma Bright on 10-24-2022 Erythrocyte distribution width (RBC) [Ratio] 12.9 % Normal 10.9 - 14.2 % [facility] HemeAutoSS Hematocrit (Bld) [Volume fraction] 40.9 % Normal 37.7 - 49.0 % [facility] Hemoglobin (Bld) [Mass/Vol] 13.9 g/dL Normal 13.5 - 17.5 gm/dL [facility] MCH (RBC) [Entitic mass] 30.3 pg Normal 27.0 - 34.0 pg [facility] MCHC (RBC) [Mass/Vol] 34.0 g/dL Normal 31.4 - 36.0 gm/dL [facility] MCV (RBC) [Entitic vol] 89.2 fL Normal 80.0 - 100.0 fL [facility] Platelet mean volume (Bld) [Entitic vol] 8.4 fL Normal 6.4 - 10.8 fL [facility] HemeAutoSS Platelets (Bld) [#/Vol] 343.0 E9/L Normal 150.0 - 500.0 E9/L [facility] RBC (Bld) [#/Vol] 4.6 E12/L Normal 4.3 - 5.9 E12/L [facility] [place] [employer] WBC corrected for nucl RBC Auto (Bld) [#/Vol] 7.3 E9/L Normal 4.0 - 11.0 E9/L [facility] [place] [employer]eAutoSS Reference Laboratory Testing Ordered By: Carmel Jacobson on 10-24-2022 Test Code [id number] Invalid Interpretation Code [facility] [place] [facility] Test Name hCG b-sub Invalid Interpretation Code [facility] [place] [facility] CREATININEon 04-06-2022 Creatinine [Mass/Vol] 0.93 mg/dL Normal 0.70-1.30 [facility] Comment on above: Performed By: #### B MP, TSH, LIPID, LIVER #### [facility] [address] [address] [address] Micehlle Rogers EGFR-AF KITTITIAN >60 Normal >=60 [facility] Comment on above: Performed By: #### B MP, TSH, LIPID, LIVER #### [facility] [address] [place], [place] [address] Dr. Michelle Rogers EGFR-NON AF KITTITIAN >60 Normal >=60 [facility] Comment on above: Performed By: #### B MP, TSH, LIPID, LIVER #### [facility] [address], [place] [address] ABD/PELV WO W [...] EVELIA ASENCIO Date: 2022-04-06 12:14 Normal [facility] XR CHEST 2 Von 03-23-2022 XR [...] LIZZ GENTILE Date: 2022-03-23 09:07 Normal [facility] AFP (TUMOR MARKER)on 023 AFP, Serum, Tumor Marker <1.8 Normal 0.0-6.9 [facility] Comment on above: Result Comment: [email or web address] Electrochemiluminescence Immunoassay (ECLIA) . Values obtained with different assay methods or kits cannot be used interchangeably. Results cannot be interpreted as absolute evidence of the presence or absence of malignant disease. . This test is not interpretable in females. Performed By: #### A FP. #### [facility] [address] [place] [address] Dr. Michelle Rogers HCG QUANT TUMOR MARKERon HCG QNT TUMOR MARKER <1 Normal 0-3 [facility] Comment on above: Result Comment: [email or web address] Electrochemiluminescence Immunoassay (ECLIA) . The [employer] [...] developed and its performance characteristics determined by [employer]. It has not been cleared or approved by the Food and Drug Administration for use as a tumor marker. . This test is not interpretable as a tumor marker in females. Performed By: #### B MP, TSH, LIPID, LIVER #### [facility] [address] [address] [address] Michelle Rogers LDHon 03-21-2022 LDH 115 U/L Normal 85-227 [facility] Comment on above: Performed By: #### L DH #### [facility] [address] [address] [address] Michelle Rogers CBC AUTO DIFFon 12-13-2022 BASO # 0.1 103/ul Normal 0.0-0.1 [facility] Comment on above: Performed By: #### C BC #### [facility] [address] [place] [address] Dr. Michelle Rogers Basophils/100 WBC (Bld) 0.8 % Normal 0.2-2.0 [facility] Comment on above: Performed By: #### C BC #### [facility] [address] [place] [address] Dr. Michelle Rogers EO # 0.6 103/ul Normal 0.0-0.7 [facility] Comment on above: Performed By: #### C BC #### [facility] [address] [place] [address] Dr. Michelle Rogers Eosinophils/100 WBC (Bld) 10.0 % Critically high 0.9-7.0 [facility] Comment on above: Performed By: #### C BC #### [facility] [address] [place] [address] Dr. Michelle Rogers Erythrocyte distribution width (RBC) [Ratio] 12.2 % Normal 11.0-15.0 [facility] Comment on above: Performed By: #### C BC #### [facility] [address] [place] [address] Dr. Michelle Rogers Hematocrit (Bld) [Volume fraction] 41.1 % Critically low 42.0-54.0 [facility] Comment on above: Performed By: #### C BC #### [facility] [address] [place] [address] Dr. Michelle Rogers Hemoglobin (Bld) [Mass/Vol] 14.3 g/dL Normal 14.0-18.0 [facility] Comment on above: Performed By: #### C BC #### [facility] [address] [place] [address] Dr. Michelle Rogers IG # 0.01 10e3/ul Normal 0.00-0.03 [facility] Comment on above: Performed By: #### C BC #### [facility] [address] [place] [address] Dr. Michelle Rogers IG % 0.2 % Normal 0.0-0.5 [facility] Comment on above: Performed By: #### C BC #### [facility] [address] [place] [address] Dr. Michelle Rogers LYMPH # 1.6 103/ul Normal 1.2-3.8 [facility] Comment on above: Performed By: #### C BC #### [facility] [address] [place] [address] Dr. Michelle Rogers Lymphocytes/100 WBC (Bld) 26.3 % Normal 20.5-60.0 [facility] Comment on above: Performed By: #### C BC #### [facility] [address] [place] [address] Dr. Michelle Rogers MANUAL DIFF REQ NO Normal [facility] Comment on above: Performed By: #### C BC #### [facility] [address] [place] [address] Dr. Michelle Rogers MCH (RBC) [Entitic mass] 30.3 pg Normal 25.9-34.0 [facility] Comment on above: Performed By: #### C BC #### [facility] [address] [place] [address] Dr. Michelle Rogers MCHC (RBC) [Mass/Vol] 34.8 g/dL Normal 29.9-35.2 [facility] Comment on above: Performed By: #### C BC #### [facility] [address] [place] [address] Dr. Michelle Rogers MCV (RBC) [Entitic vol] 87.1 fL Normal 80.0-94.0 [facility] Comment on above: Performed By: #### C BC #### [facility] [address] [place] [address] Dr. Michelle Rogers MONO # 0.5 103/ul Normal 0.3-0.8 [facility] Comment on above: Performed By: #### C BC #### [facility] [address] [place] [address] Dr. Michelle Rogers Monocytes/100 WBC (Bld) 8.3 % Normal 1.7-12.0 [facility] Comment on above: Performed By: #### C BC #### [facility] [address] [address] [address] Michelle Rogers NEUT # 3.2 103/ul Normal 1.4-6.5 [facility] Comment on above: Performed By: #### C BC #### [facility] [address] [address] [address] Michelle Rogers Neutrophils/100 WBC (Bld) 54.4 % Normal 43.0-75.0 [facility] Comment on above: Performed By: #### C BC #### [facility] [address] [place] [address] Dr. Michelle Rogers Platelet mean volume (Bld) [Entitic vol] 9.8 fL Normal 9.5-13.5 [facility] Comment on above: Performed By: #### C BC #### [facility] [address] [place] [address] Dr. Michelle Rogers PLT 230 103/ul Normal 150-450 [facility] Comment on above: Performed By: #### C BC #### [facility] [address] [place] [address] Dr. Michelle Rogers RBC 4.72 106/ul Normal 4.70-6.10 [facility] Comment on above: Performed By: #### C BC #### [facility] [address] [place] [address] Dr. Michelle Rogers WBC 5.9 103/ul Normal 4.0-11.0 [facility] Comment on above: Performed By: #### C BC #### [facility] [address] [place] [address] Dr. Michelle Rogers GLYCOHEMOGLOBIN A1Con 2021 ADA RECOMMENDATION SEE BELOW Normal [facility] Comment on above: Result Comment: ADA RECOMMENDED LIMIT 4.0 - 6.0 ADA THERAPEUTIC TARGET < 7.0 ACTION SUGGESTED > 7.0 Performed By: #### B MP, TSH, LIPID, LIVER #### [facility] [address] [place] [address] Dr. Michelle Rogers Glucose [Mass/Vol] 194 mg/dL Normal [facility] Comment on above: Performed By: #### B MP, TSH, LIPID, LIVER #### [facility] [address] [address] [address] Michelle Rogers HbA1c (Bld) [Mass fraction] 8.4 % Critically high 4.5-6.2 [facility] Comment on above: Performed By: #### B MP, TSH, LIPID, LIVER #### [facility] [address] [address] [address] Michelle Rogers LIPID PROFILEon 01-17-2022 CHOL-HDL RATIO NORM SEE BELOW Normal [facility] Comment on above: Result Comment: 3.3 - 4.4 LOW RISK 4.4 - 7.1 AVERAGE RISK 7.1 - 11.0 MODERATE RISK >11.0 HIGH RISK Performed By: #### B MP, TSH, LIPID, LIVER #### [facility] [address] [address] [address] Michelle Rogers Cholesterol [Mass/Vol] 168 mg/dL Normal <=200 [facility] Comment on above: Performed By: #### B MP, TSH, LIPID, LIVER #### [facility] [address] [address] [address] Michelle Rogers Cholesterol in HDL [Mass/Vol] 31 mg/dL Critically low 40-60 [facility] Comment on above: Performed By: #### B MP, TSH, LIPID, LIVER #### [facility] [address] [address] [address] Michelle Rogers Cholesterol in LDL [Mass/Vol] 79.4 mg/dL Normal [facility] Comment on above: Performed By: #### B MP, TSH, LIPID, LIVER #### [facility] [address] [address] [address] Michelle Rogers Cholesterol.total/Ch olesterol in HDL [Mass ratio] 5.4 {ratio} Normal [facility] Comment on above: Performed By: #### B MP, TSH, LIPID, LIVER #### [facility] [address] [address] [address] Michelle Rogers HDL NORMAL > or = 60 mg/dl - LO W CARDIOVASCULAR RISK <40 mg/dl - HIGH CARDIOVASCULAR RISK Normal [facility] Comment on above: Performed By: #### B MP, TSH, LIPID, LIVER #### [facility] [address] [address] [address] Michelle Rogers LDL CALC NORMAL SEE BELOW Normal [facility] Comment on above: Result Comment: <100 mg/dl OPTIMAL 100 - 129 mg/dl NEAR OR ABOVE OPTIMAL 130 - 159 mg/dl BORDERLINE HIGH 160 - 189 mg/dl HIGH >190 mg/dl VERY HIGH Performed By: #### B MP, TSH, LIPID, LIVER #### [facility] [address] [address] [address] Michelle Rogers Triglyceride [Mass/Vol] 288 mg/dL Critically high <=150 [facility] Comment on above: Performed By: #### B MP, TSH, LIPID, LIVER #### [facility] [address] [address] [address] Michelle Rogers VLDL CALC 57.6 mg/dL Normal [facility] Comment on above: Performed By: #### B MP, TSH, LIPID, LIVER #### [facility] [address] [address] [address] Michelle Rogers LIVER PROFILEon 01-17-2022 Albumin [Mass/Vol] 3.8 g/dL Normal 3.4-5.0 [facility] Comment on above: Performed By: #### B MP, TSH, LIPID, LIVER #### [facility] [address] [address] [address] Michelle Rogers Albumin/Globulin [Mass ratio] 1.0 {ratio} Normal [facility] Comment on above: Performed By: #### B MP, TSH, LIPID, LIVER #### [facility] [address] [address] [address] Michelle Rogers ALP [Catalytic activity/Vol] 98 U/L Normal 46-116 [facility] Comment on above: Performed By: #### B MP, TSH, LIPID, LIVER #### [facility] [address] [address] [address] Michelle Rogers ALT [Catalytic activity/Vol] 42 U/L Normal 16-63 [facility] Comment on above: Performed By: #### B MP, TSH, LIPID, LIVER #### [facility] [address] [place] [address] Dr. Michelle Rogers AST [Catalytic activity/Vol] 26 U/L Normal 15-37 [facility] Comment on above: Performed By: #### B MP, TSH, LIPID, LIVER #### [facility] [address] [place] [address] Dr. Michelle Rogers BILI, CONJUGATED 0.1 mg/dL Normal 0.0-0.[address] [facility] Comment on above: Performed By: #### B MP, TSH, LIPID, LIVER #### [facility] [address] [place] [address] Dr. Michelle Rogers Bilirubin [Mass/Vol] 0.4 mg/dL Normal 0.2-1.0 [facility] Comment on above: Performed By: #### B MP, TSH, LIPID, LIVER #### [facility] [address] [place] [address] Dr. Mcihelle Rogers Globulin (S) [Mass/Vol] 3.8 g/dL Normal [facility] Comment on above: Performed By: #### B MP, TSH, LIPID, LIVER #### [facility] [address] [place] [address] Dr. Michelle Rogers Protein [Mass/Vol] 7.6 g/dL Normal 6.4-8.2 [facility] Comment on above: Performed By: #### B MP, TSH, LIPID, LIVER #### [facility] [address] [place] [address] Dr. Michelle Rogers MICROALBUMIN, RAND URon 01-05 mALB <1.3 Normal <=30.0 [facility] Comment on above: Performed By: #### B MP, TSH, LIPID, LIVER #### [facility] [address] [place] [address] Dr. Michelle Rogers PROF CHEM 8 (BAS METB)on Anion gap [Moles/Vol] 11.7 mmol/L Normal [facility] Comment on above: Performed By: #### B MP, TSH, LIPID, LIVER #### [facility] [address] [address] [address] Michelle Rogers Calcium [Mass/Vol] 8.8 mg/dL Normal 8.5-10.1 [facility] Comment on above: Performed By: #### B MP, TSH, LIPID, LIVER #### [facility] [address] [place] [address] Dr. Michelle Rogers Chloride [Moles/Vol] 101 mmol/L Normal 98-107 [facility] Comment on above: Performed By: #### B MP, TSH, LIPID, LIVER #### [facility] [address] [place] [address] Dr. Michelle Rogers CO2 [Moles/Vol] 26.4 mmol/L Normal 21.0-32.[address] [facility] Comment on above: Performed By: #### B MP, TSH, LIPID, LIVER #### [facility] [address] [place] [address] Dr. Michelle Rogers Creatinine [Mass/Vol] 1.03 mg/dL Normal 0.70-1.30 [facility] Comment on above: Performed By: #### B MP, TSH, LIPID, LIVER #### [facility] [address] [place] [address] Dr. Michelle Rogers EGFR-AF KITTITIAN >60 Normal >=[address] [facility] Comment on above: Performed By: #### B MP, TSH, LIPID, LIVER #### [facility] [address] [place] [address] Dr. Michelle Rogers EGFR-NON AF KITTITIAN >60 Normal >=60 [facility] Comment on above: Performed By: #### B MP, TSH, LIPID, LIVER #### [facility] [address] [place] [address] Dr. Michelle Rogers Glucose [Mass/Vol] 373 mg/dL Critically high 74-106 [facility] Comment on above: Performed By: #### B MP, TSH, LIPID, LIVER #### [facility] [address] [place] [address] Dr. Michelle Rogers Potassium [Moles/Vol] 4.1 mmol/L Normal 3.5-5.1 [facility] Comment on above: Performed By: #### B MP, TSH, LIPID, LIVER #### [facility] [address] [place] [address] Dr. Michelle Rogers Sodium [Moles/Vol] 135 mmol/L Critically low 136-[address] [facility] Comment on above: Performed By: #### B MP, TSH, LIPID, LIVER #### [facility] [address] [place] [address] Dr. Michelle Rogers Urea nitrogen [Mass/Vol] 17.0 mg/dL Normal 7.0-18.0 [facility] Comment on above: Performed By: #### B MP, TSH, LIPID, LIVER #### [facility] [address] [place] [address] Dr. Michelle Rogers Urea nitrogen/Creatinine [Mass ratio] 16.5 mg/mg Normal [facility] Comment on above: Performed By: #### B MP, TSH, LIPID, LIVER #### [facility] [address] [place] [address] Dr. Michelle Rogers TSHon 01-17-2022 TSH 1.801 uIU/mL Normal 0.358-3.740 [facility] Comment on above: Performed By: #### B MP, TSH, LIPID, LIVER #### [facility] [address] [place] [address] Dr. Michelle Rogers INSULINon 11-16-2021 Insulin 14.4 uIU/mL Normal 2.6-24.9 [facility] Comment on above: Performed By: #### B MP, TSH, LIPID, LIVER #### [facility] [address] [place] [address] Dr. Michelle Rogers CBC AUTO DIFFon 11-15-2021 BASO # 0.0 103/ul Normal 0.0-0.1 [facility] Comment on above: Performed By: #### C BC #### [facility] [address] [place] [address] Dr. Michelle Rogers Basophils/100 WBC (Bld) 0.7 % Normal 0.2-2.0 [facility] Comment on above: Performed By: #### C BC #### [facility] [address] [place] [address] Dr. Michelle Rogers EO # 0.4 103/ul Normal 0.0-0.7 [facility] Comment on above: Performed By: #### C BC #### [facility] [address] [place] [address] Dr. Michelle Rogers Eosinophils/100 WBC (Bld) 6.5 % Normal 0.9-7.0 [facility] Comment on above: Performed By: #### C BC #### [facility] [address] [place] [address] Dr. Michelle Rogers Erythrocyte distribution width (RBC) [Ratio] 12.5 % Normal 11.0-15.0 [facility] Comment on above: Performed By: #### C BC #### [facility] [address] [place] [address] Dr. Michelle Rogers Hematocrit (Bld) [Volume fraction] 41.8 % Critically low 42.0-54.0 [facility] Comment on above: Performed By: #### C BC #### [facility] [address] [place] [address] Dr. Michelle Rogers Hemoglobin (Bld) [Mass/Vol] 14.2 g/dL Normal 14.0-18.0 [facility] Comment on above: Performed By: #### C BC #### [facility] [address] [place] [address] Dr. Michelle Rogers IG # 0.01 10e3/ul Normal 0.00-0.03 [facility] Comment on above: Performed By: #### C BC #### [facility] [address] [place] [address] Dr. Michelle Rogers IG % 0.2 % Normal 0.0-0.5 [facility] Comment on above: Performed By: #### C BC #### [facility] [address] [place] [address] Dr. Michelle Rogers LYMPH # 1.4 103/ul Normal 1.2-3.8 [facility] Comment on above: Performed By: #### C BC #### [facility] [address] [place] [address] Dr. Michelle Rogers Lymphocytes/100 WBC (Bld) 24.4 % Normal 20.5-60.0 [facility] Comment on above: Performed By: #### C BC #### [facility] [address] [place] [address] Dr. Michelle Rogers MANUAL DIFF REQ NO Normal [facility] Comment on above: Performed By: #### C BC #### [facility] [address] [place] [address] Dr. Michelle Rogers MCH (RBC) [Entitic mass] 30.7 pg Normal 25.9-34.0 [facility] Comment on above: Performed By: #### C BC #### [facility] [address] [place] [address] Dr. Michelle Rogers MCHC (RBC) [Mass/Vol] 34.0 g/dL Normal 29.9-35.2 [facility] Comment on above: Performed By: #### C BC #### [facility] [address] [place] [address] Dr. Michelle Rogers MCV (RBC) [Entitic vol] 90.5 fL Normal 80.0-94.0 [facility] Comment on above: Performed By: #### C BC #### [facility] [address] [place] [address] Dr. Michelle Rogers MONO # 0.5 103/ul Normal 0.3-0.8 [facility] Comment on above: Performed By: #### C BC #### [facility] [address] [place] [address] Dr. Michelle Rogers Monocytes/100 WBC (Bld) 9.0 % Normal 1.7-12.0 [facility] Comment on above: Performed By: #### C BC #### [facility] [address] [place] [address] Dr. Michelle Rogers NEUT # 3.4 103/ul Normal 1.4-6.5 [facility] Comment on above: Performed By: #### C BC #### [facility] [address] [address] [address] Michelle Rogers Neutrophils/100 WBC (Bld) 59.2 % Normal 43.0-75.0 [facility] Comment on above: Performed By: #### C BC #### [facility] [address] [address] [address] Michelle Rogers Platelet mean volume (Bld) [Entitic vol] 9.6 fL Normal 9.5-13.5 [facility] Comment on above: Performed By: #### C BC #### [facility] [address] [address] [address] Michelle Rogers PLT 215 103/ul Normal 150-450 [facility] Comment on above: Performed By: #### C BC #### [facility] [address] [address] [address] Michelle Rogers RBC 4.62 106/ul Critically low 4.70-6.10 [facility] Comment on above: Performed By: #### C BC #### [facility] [address] [address] [address] Michelle Rogers WBC 5.7 103/ul Normal 4.0-11.0 [facility] Comment on above: Performed By: #### C BC #### [facility] [address] [address] [address] Michelle Rogers GLYCOHEMOGLOBIN A1Con 2021 ADA RECOMMENDATION SEE BELOW Normal [facility] Comment on above: Result Comment: ADA RECOMMENDED LIMIT 4.0 - 6.0 ADA THERAPEUTIC TARGET < 7.0 ACTION SUGGESTED > 7.0 Performed By: #### A 1C #### [facility] [address] [address] [address] Michelle Rogers Glucose [Mass/Vol] 186 mg/dL Normal [facility] Comment on above: Performed By: #### A 1C #### [facility] [address] [address] [address] Michelle Rogers HbA1c (Bld) [Mass fraction] 8.1 % Critically high 4.5-6.2 [facility] Comment on above: Performed By: #### A 1C #### [facility] [address] [address] [address] Michelle Rogers LIPID PROFILEon 11-15-2021 CHOL-HDL RATIO NORM SEE BELOW Normal [facility] Comment on above: Result Comment: 3.3 - 4.4 LOW RISK 4.4 - 7.1 AVERAGE RISK 7.1 - 11.0 MODERATE RISK >11.0 HIGH RISK Performed By: #### B MP, TSH, LIPID, LIVER #### [facility] [address] [address] [address] Michelle Rogers Cholesterol [Mass/Vol] 181 mg/dL Normal <=200 [facility] Comment on above: Performed By: #### B MP, TSH, LIPID, LIVER #### [facility] [address] [address] [address] Michelle Rogers Cholesterol in HDL [Mass/Vol] 34 mg/dL Critically low 40-60 [facility] Comment on above: Performed By: #### B MP, TSH, LIPID, LIVER #### [facility] [address] [address] [address] Michelle Rogers Cholesterol in LDL [Mass/Vol] 112.2 mg/dL Normal [facility] Comment on above: Performed By: #### B MP, TSH, LIPID, LIVER #### [facility] [address] [address] [address] Michelle Rogers Cholesterol.total/Ch olesterol in HDL [Mass ratio] 5.3 {ratio} Normal [facility] Comment on above: Performed By: #### B MP, TSH, LIPID, LIVER #### [facility] [address] [address] [address] Michelle Rogers HDL NORMAL > or = 60 mg/dl - LO W CARDIOVASCULAR RISK <40 mg/dl - HIGH CARDIOVASCULAR RISK Normal [facility] Comment on above: Performed By: #### B MP, TSH, LIPID, LIVER #### [facility] [address] [address] [address] Michelle Rogers LDL CALC NORMAL SEE BELOW Normal [facility] Comment on above: Result Comment: <100 mg/dl OPTIMAL 100 - 129 mg/dl NEAR OR ABOVE OPTIMAL 130 - 159 mg/dl BORDERLINE HIGH 160 - 189 mg/dl HIGH >190 mg/dl VERY HIGH Performed By: #### B MP, TSH, LIPID, LIVER #### [facility] [address] [address] [address] Michelle Rogers Triglyceride [Mass/Vol] 174 mg/dL Critically high <=150 [facility] Comment on above: Performed By: #### B MP, TSH, LIPID, LIVER #### [facility] [address] [address] [address] Michelle Rogers VLDL CALC 34.8 mg/dL Normal [facility] Comment on above: Performed By: #### B MP, TSH, LIPID, LIVER #### [facility] [address] [place] [address] Dr. Michelle Rogers PROF 14(COMP METB)on 022 Albumin [Mass/Vol] 4.0 g/dL Normal 3.4-5.0 [facility] Comment on above: Performed By: #### B MP, TSH, LIPID, LIVER #### [facility] [address] [address] [address] Michelle Rogers Albumin/Globulin [Mass ratio] 1.2 {ratio} Normal [facility] Comment on above: Performed By: #### B MP, TSH, LIPID, LIVER #### [facility] [address] [place] [address] Dr. Michelle Rogers ALP [Catalytic activity/Vol] 71 U/L Normal 46-116 [facility] Comment on above: Performed By: #### B MP, TSH, LIPID, LIVER #### [facility] [address] [place] [address] Dr. Michelle Rogers ALT [Catalytic activity/Vol] 73 U/L Critically high 16-63 [facility] [facility] Comment on above: Performed By: #### B MP, TSH, LIPID, LIVER #### [facility] [address] [address] [address] Michelle Rogers Anion gap [Moles/Vol] 13.2 mmol/L Normal [facility] Comment on above: Performed By: #### B MP, TSH, LIPID, LIVER #### [facility] [address] [place] [address] Dr. Michelle Rogers AST [Catalytic activity/Vol] 35 U/L Normal 15-37 [facility] Comment on above: Performed By: #### B MP, TSH, LIPID, LIVER #### [facility] [address] [place] [address] Dr. Michelle Rogers Bilirubin [Mass/Vol] 0.9 mg/dL Normal 0.2-1.0 [facility] Comment on above: Performed By: #### B MP, TSH, LIPID, LIVER #### [facility] [address] [place] [address] Dr. Michelle Rogers Calcium [Mass/Vol] 8.8 mg/dL Normal 8.5-10.1 [facility] Comment on above: Performed By: #### B MP, TSH, LIPID, LIVER #### [facility] [address] [place] [address] Dr. Michelle Rogers Chloride [Moles/Vol] 103 mmol/L Normal 98-107 [facility] Comment on above: Performed By: #### B MP, TSH, LIPID, LIVER #### [facility] [address] [place] [address] Dr. Michelle Rogers CO2 [Moles/Vol] 26.8 mmol/L Normal 21.0-32.0 [facility] Comment on above: Performed By: #### B MP, TSH, LIPID, LIVER #### [facility] [address] [place] [address] Dr. Michelle Rogers Creatinine [Mass/Vol] 0.96 mg/dL Normal 0.70-1.30 [facility] Comment on above: Performed By: #### B MP, TSH, LIPID, LIVER #### [facility] [address] [place] [address] Dr. Michelle Rogers EGFR-AF KITTITIAN >60 Normal >=60 [facility] Comment on above: Performed By: #### B MP, TSH, LIPID, LIVER #### [facility] [address] [place] [address] Dr. Michelle Rogers EGFR-NON AF KITTITIAN >60 Normal >=60 [facility] Comment on above: Performed By: #### B MP, TSH, LIPID, LIVER #### [facility] [address] [address] [address] Michelle Rogers Globulin (S) [Mass/Vol] 3.4 g/dL Normal [facility] Comment on above: Performed By: #### B MP, TSH, LIPID, LIVER #### [facility] [address] [address] [address] Michelle Rogers Glucose [Mass/Vol] 168 mg/dL Critically high 74-106 [facility] Comment on above: Performed By: #### B MP, TSH, LIPID, LIVER #### [facility] [address] [place] [address] Dr. Michelle Rogers Potassium [Moles/Vol] 4.0 mmol/L Normal 3.5-5.1 [facility] Comment on above: Performed By: #### B MP, TSH, LIPID, LIVER #### [facility] [address] [place] [address] Dr. Michelle Rogers Protein [Mass/Vol] 7.4 g/dL Normal 6.4-8.2 [facility] Comment on above: Performed By: #### B MP, TSH, LIPID, LIVER #### [facility] [address] [place] [address] Dr. Michelle Rogers Sodium [Moles/Vol] 139 mmol/L Normal 136-145 [facility] Comment on above: Performed By: #### B MP, TSH, LIPID, LIVER #### [facility] [address] [place] [address] Dr. Michelle Rogers Urea nitrogen [Mass/Vol] 18.0 mg/dL Normal 7.0-18.0 [facility] Comment on above: Performed By: #### B MP, TSH, LIPID, LIVER #### [facility] [address] [place] [address] Dr. Michelle Rogers Urea nitrogen/Creatinine [Mass ratio] 18.8 mg/mg Normal [facility] Comment on above: Performed By: #### B MP, TSH, LIPID, LIVER #### [facility] [address] [place], [place] [address] Dr. Michelle Rogers URIC ACID SERUMon 11-15-2021 Urate [Mass/Vol] 5.2 mg/dL Normal 3.5-7.[address] [facility] Comment on above: Performed By: #### B MP, TSH, LIPID, LIVER #### [facility] [address] [place], [place] [address] Dr. Michelle Rogers Vital Signs Date Time Vital Sign Value Performing Clinician Facility 12-31-2023 14:090500 Body height 172.7 cm Nam Banks MD Work Phone: [facility] 12-31-2023 14:09-0500 Body mass index (BMI) [Ratio] 39.84 kg/m2 Nam Banks MD Work Phone: [facility] 12-31-2023 14:09-0500 Body temperature 97.5 [degF] Nam Banks MD Work Phone: [facility] 12-31-2023 14:09-0500 Body weight 118.84 kg Nam Banks MD Work Phone: [facility] 12-31-2023 14:09-0500 Diastolic blood pressure 76 mm[Hg] Nam Banks MD Work Phone: [facility] 12-31-2023 14:09-0500 Heart rate 84 /min Nam Banks MD Work Phone: [facility] 12-31-2023 14:09-0500 Respiratory rate 22 /min Nam Banks MD Work Phone: [facility] 12-31-2023 14:09-0500 SaO2% (BldA) [Mass fraction] 98 % Nam Banks MD Work Phone: [facility] 12-31-2023 14:09-0500 Systolic blood pressure 140 mm[Hg] Nam Banks MD Work Phone: [facility] 10-24-2022 13:00-0400 Blood Pressure Location Mhd Al-Marrawi [facility] 10-24-2022 13:00-0400 Body temperature 98.24 [degF] Mhd Al-Marrawi [facility] 10-24-2022 13:00-0400 Diastolic blood pressure 92 mm[Hg] Mhd Al-Marrawi [facility] 10-24-2022 13:00-0400 Heart rate 89 /min Mhd Al-Marrawi [facility] 10-24-2022 13:00-0400 Mean blood pressure 109 mm[Hg] Mhd Al-Marrawi [facility] 10-24-2022 13:00-0400 Respiratory rate 16 /min Mhd Al-Marrawi [facility] 10-24-2022 13:00-0400 SaO2% (BldA) [Mass fraction] 98 % Mhd Al-Marrawi [facility] 10-24-2022 13:00-0400 Systolic blood pressure 143 mm[Hg] Mhd Al-Marrawi [facility] 10-03-2022 09:50-0400 Blood Pressure Location Ambrocio HITCHCOCK [facility] 10-03-2022 09:50-0400 Body temperature 98.6 [degF] Ambrocio HITCHCOCK [facility] 10-03-2022 09:50-0400 Diastolic blood pressure 81 mm[Hg] Ambrocio HITCHCOCK [facility] 10-03-2022 09:50-0400 Heart rate 77 /min Ambrocio HITCHCOCK [facility] 10-03-2022 09:50-0400 Systolic blood pressure 131 mm[Hg] Ambrocio HITCHCOCK [facility] 03-17-2022 09:50-0500 Blood Pressure Location Ambrocio HITCHCOCK [facility] 03-17-2022 09:50-0500 Diastolic blood pressure 84 mm[Hg] Ambrocio HITCHCOCK [facility] 03-17-2022 09:50-0500 Heart rate 66 /min Ambrocio HITCHCOCK [facility] 03-17-2022 09:50-0500 Respiratory rate 16 /min Ambrocio HITCHCOCK [facility] 03-17-2022 09:50-0500 Systolic blood pressure 128 mm[Hg] Ambrocio HITCHCOCK [facility] Encounters Encounter Date Encounter Type Care Provider Facility Start: 12-31-2023 End: 12-31-2023 Patient encounter procedure Nam Banks MD Work Phone: [facility] Work Phone: Start: 12-31-2023 End: 12-31-2023 Periodic preventive med est patient 40-64yrs Nam Banks MD Work Phone: [facility] Comment on above: Annual physical exam (Primary Dx); Type 2 diabetes mellitus with hyperglycemia, without long-term current use of insulin (CMS/HCC); Essential hypertension, benign (CMS/HCC) Start: 12-31-2023 End: 12-31-2023 Darrylboo flowsheet Nam Banks MD Work Phone: [facility] Start: 12-31-2023 End: 12-31-2023 Bamboo BlackLine Systemsheet Nam Banks MD Work Phone: [facility] Start: 09-24-2023 ambulatory Ambrocio HITCHCOCK Facili ty:[facility] [place] Start: 04-02-2023 End: 04-02-2023 ambulatory Ambroc[facility]ITCHCOCK [facility] Start: 03-27-2023 End: 04-11-2023 Pre-admission assessment Mhd Margot Menjivar [facility] Start: 03-21-2023 Telephone encounter Nam vaughan MD Work Phone: [facility] Start: 03-20-2023 Clinisync Result Encounter Generic External Data Provider [facility] Unsolicited Start: 03-20-2023 Clinisync Result Encounter Generic External Data Provider [facility] Unsolicited Start: 03-20-2023 ambulatory Ambrocio HITCHCOCK Facility :[facility] Start: 01-02-2023 End: 01-02-2023 ambulatory NAM BANKS Not Available Start: 01-02-2023 Patient encounter procedure Generic Provider [facility] Start: 10-24-2022 End: 10-24-2022 Patient encounter procedure Mhd Margot Menjivar [facility] Start: 10-24-2022 End: 10-24-2022 Patient encounter procedure Jose Menjivar [facility] Start: 10-03-2022 End: 10-03-2022 Patient encounter procedure Ambrocio HITCHCOCK [facility] Start: 04-06-2022 End: 04-07-[address] AMBROCIO HITCHCOCK . Facility: Start: 04-04-2022 End: 04-04-2022 Patient encounter procedure Ambrocio HITCHCOCK [facility] Start: 03-21-2022 End: 03-22-[address] NAM BANKS Facility:[facility] Start: 03-17-2022 End: 03-17-2022 Patient encounter procedure Ambrocio R HITCHCOCK [facility] Start: 01-21-2022 Encounter for genera l adult medical examination without abnormal findings DR NAM BANKS [facility] Start: 01-17-2022 End: 01-18-2022 ambulatory DINORA HUERTA Facility:[facility] Start: 01-17-2022 End: 01-18-2022 Encounter for general adult medical examination without abnormal findings DINORA HUERTA Facility:[facility] Start: 11-15-2021 End: 11-16-2021 ambulatory DINORA HUERTA Facility:[facility] Procedures Date Procedure Procedure Detail Performing Clinician Start: 03-20-2023 ALL CBC WITH AUTO DIFF Generic External Data Provider Start: 11-28-2021 Right total orchidectomy Ambrocio HITCHCOCK Start: 11-28-2020 Right total orchidectomy Jose LagosLisa Plan of Treatment Date Care Activity Detail Author Start: 07-01-2024 End: 07-01-2024 Patient encounter procedure 07/01/2024 9:00 AM EDT Office Visit [facility] [address] [place] [address] Nam Banks MD [address] [place] [phone] [facility] Start: 12-31-2023 End: 12-31-2023 Patient encounter procedure 12/31/2023 2:15 PM EST Office [facility] [address] [place] [phone] Nam Banks MD [address] [place] [phone] Arrived [facility] Comment on above: Arrived Start: 12-31-2023 End: 12-30-2024 Albumin, urine, random Albumin, urine, random Lab Routine Type 2 diabetes mellitus with hyperglycemia, without long-term current use of insulin ([facility]) Expected: 12/31/2023 (Approximate), Expires: 12/30/2024 [facility] Work Phone: Comment on above: Expected: 12/31/2023 (Approximate), Expires: 12/30/2024 Start: 12-31-2023 End: 12-30-2024 Basic metabolic 1998 panel - Serum or Plasma Basic metabolic panel Lab Routine Annual physical exam Expected: 12/31/2023 (Approximate), Expires: 12/30/2024 [facility] Comment on above: Expected: 12/31/2023 (Approximate), Expires: 12/30/2024 Start: 12-31-2023 End: 12-30-2024 CBC W Auto Differential panel - Blood CBC and differential Lab Routine Annual physical exam Expected: 12/31/2023 (Approximate), Expires: 12/30/2024 [facility] Comment on above: Expected: 12/31/2023 (Approximate), Expires: 12/30/2024 Start: 12-31-2023 End: 12-30-2024 Hemoglobin A1c/Hemoglobin.total in Blood Hemoglobin A1c Lab Routine Annual physical exam Expected: 12/31/2023 (Approximate), Expires: 12/30/2024 [facility] Comment on above: Expected: 12/31/2023 (Approximate), Expires: 12/30/2024 Start: 12-31-2023 End: 12-30-2024 Hepatic function 2000 panel - Serum or Plasma Hepatic function panel Lab Routine Annual physical exam Expected: 12/31/2023 (Approximate), Expires: 12/30/2024 [facility] Comment on above: Expected: 12/31/2023 (Approximate), Expires: 12/30/2024 Start: 12-31-2023 End: 12-30-2024 Lipid 1996 panel - Serum or Plasma Lipid panel Lab Routine Annual physical exam Expected: 12/31/2023 (Approximate), Expires: 12/30/2024 [facility] Comment on above: Expected: 12/31/2023 (Approximate), Expires: 12/30/2024 Start: 12-31-2023 End: 12-30-2024 Prostate specific Ag [Mass/volume] in Serum or Plasma PSA Lab Routine Annual physical exam Expected: 12/31/2023 (Approximate), Expires: 12/30/2024 [facility] Comment on above: Expected: 12/31/2023 (Approximate), Expires: 12/30/2024 Start: 12-31-2023 End: 12-30-2024 Thyrotropin [Units/volume] in Serum or Plasma TSH Lab Routine Annual physical exam Expected: 12/31/2023 (Approximate), Expires: 12/30/2024 [facility] Comment on above: Expected: 12/31/2023 (Approximate), Expires: 12/30/2024 Start: 10-07-2023 Influenza vaccination Influenza Vacc ine (#1) [facility] Start: 07-04-2023 Hemoglobin A1c measurement Diabetes: Hemoglobin A1C [facility] Start: 07-03-2023 End: 07-03-2023 Patient encounter procedure 07/03/2023 1:30 PM EDT Office Visit [facility] [address] [place] [address] Nam Banks MD [address] [place] [phone] [facility] Start: 04-05-2023 Hemoglobin A1c measurement Diabetes: Hemoglobin A1C [facility] Start: 03-22-2023 End: 03-22-2023 Patient encounter procedure 03/22/2023 9:45 AM EST Office Visit [facility] [address] [place] [address] Nam Banks MD [address] [place] [phone] [facility] Start: 03-21-2023 End: 03-21-2024 Hemoglobin A1c/Hemoglobin.total in Blood Hemoglobin A1c Lab Routine Type 2 diabetes mellitus with hyperglycemia, without long-term current use of insulin ([facility]/HCC) Expected: 03/21/2023 (Approximate), Expires: 03/21/2024 [facility] Work Phone: Comment on above: Expected: 03/21/2023 (Approximate), Expires: 03/21/2024 Start: 10-06-2022 Influenza vaccination Influenza Vacc ine (#1) [facility] Start: 2001 Urine screening for protein Diabetes: Urine Protein Screening [facility] Start: 1992 Glaucoma screening Diabetes: R etinopathy Screening [facility] Payers Date Payer Category Payer Private Health Insurance UBALDO JOSE [id number] 2022 Unknown KIEL D[employer] [employer] [id number] 2022-Present [phone] [place] [id number] 2022 Unknown [id number] 1982 Unknown [id number] 1982 Unknown [id number] 1982 Unknown [id number] 1982 Unknown [id number] 1982 Unknown [id number] 1982 Unknown [id number] 1982 Unknown [id number] Social History Date Type Detail Facility Start: 03-17-2022 End: 01-02-2023 Tobacco smoking status Never smoked tobacco (finding) [facility] Tobacco smoking status Never [facility] Start: 01-02-2023 End: 12-31-2023 Sex Assigned At Male [facility] Start: 01-02-2023 Tobacco use and exposure Smokeless tobacco non-user [facility] Start: 01-02-2023 End: 12-31-2023 Alcohol intake Lifetime non-drinker (finding) [facility] Start: 01-02-2023 End: 12-31-2023 History of Social function [facility] Start: 1980 Sex Assigned At Not on file [facility] Functional Status Date Assessment Result Facility 10-03-2022 Functional Status N/A [facility] 03-17-2022 Functional Status N/A [facility] Clinical Notes 03-17-2022 to 12-31-2023 Nam Banks MD - 12/31/2023 2:24 PM Clark Banks MD - 12/31/2023 2:24 PM Clark Banks MD - 12/31/2023 2:23 PM Clark Banks MD - 12/31/2023 2:15 PM EST Note Date & Type Note Facility 12-31-2023 History of Presen t illness Narrative Associated Problem(s): Type 2 diabetes mellitus with hyperglycemia (CMS/HCC) Reports BS elevated and due for A1C. Stick to ADA diet and limit carbs. Associated Problem(s): Essential hypertension, benign (CMS/HCC) BP controlled and monitor PRN. Discussed DASH diet. Associated Problem(s): Annual physical exam Due for labs. Discussed proper diet and regular aerobic exercise. Need aerobic exercise 5-6 days a week for 30 minutes at a time. Smaller portions and limit total calories. Colonoscopy after age 45. Tetanus every 10 years. Advised not to smoke. Images from the original note were not included. Subjective Patient ID: Romero Moulton is a 43 y.o. male who presents for Follow-up (Check up). Presents for annual PE. Weight up 11 pounds in the past year. Tries to stay active and exercise several days a week. Tries to watch diet and eat healthy. Increased fruits and vegetables. Smaller portions and limits snacking. Tries to limit total daily calories. Due for labs. Reports BS elevated and ranges 160-260 but averages around 180. Tries to eat well and stick to ADA diet. Denies signs of elevated BS such as polyuria, polyphagia or polydipsia. Checking BP PRN and typically controlled. BP normal today. Taking medication daily and tolerating without side effects. Review of Systems Constitutional: Negative for fatigue. Respiratory: Negative for cough, shortness of breath and wheezing. Cardiovascular: Negative for chest pain and palpitations. Gastrointestinal: Negative for abdominal pain, diarrhea, nausea and vomiting. Genitourinary: Negative for dysuria. Objective Physical Exam Constitutional: General: He is not in acute distress. Appearance: Normal appearance. HENT: Head: Normocephalic. Right Ear: Tympanic membrane and ear canal normal. Left Ear: Tympanic membrane and ear canal normal. Eyes: Extraocular Movements: Extraocular movements intact. Pupils: Pupils are equal, round, and reactive to light. Cardiovascular: Rate and Rhythm: Normal rate and regular rhythm. Heart sounds: No murmur heard. No friction rub. No gallop. Pulmonary: Breath sounds: Normal breath sounds. No wheezing, rhonchi or rales. Abdominal: General: Bowel sounds are normal. There is no distension. Palpations: Abdomen is soft. Tenderness: There is no abdominal tenderness. There is no guarding or rebound. Musculoskeletal: General: Normal range of motion. Left lower leg: No edema. Neurological: General: No focal deficit present. Mental Status: He is alert. Cranial Nerves: No cranial nerve deficit. Deep Tendon Reflexes: Reflexes normal. Assessment/Plan Problem List Items Addressed This Visit Essential hypertension, benign (CMS/HCC) BP controlled and monitor PRN. Discussed DASH diet. Type 2 diabetes mellitus with hyperglycemia (CMS/HCC) Reports BS elevated and due for A1C. Stick to ADA diet and limit carbs. Relevant Orders Albumin, urine, random Annual physical exam - Primary Due for labs. Discussed proper diet and regular aerobic exercise. Need aerobic exercise 5-6 days a week for 30 minutes at a time. Smaller portions and limit total calories. Colonoscopy after age 45. Tetanus every 10 years. Advised not to smoke. Relevant Orders Hemoglobin A1c Basic metabolic panel CBC and differential Hepatic function panel Lipid panel PSA TSH documented in this encounter [facility] 03-21-2023 Telephone encounter Note A1C order in chart. Please send to lab. Will notify of results and make changes now if needed. Can discuss at visit in June. [facility] 03-21-2023 Miscellaneous Notes A1C order in chart. Please send to lab. Will notify of results and make changes now if needed. Can discuss at visit in June. documented in this encounter [facility] 10-03-2022 Hospital Discharg e instructions Follow Up Care 10/03/2022 10:43:25 With:Jose Menjivar Address: [facility] [address] [place], [place] [address] [address] [phone] Business (1) When: Unknown Comments:Will obtain labs [...] scans and the tumor markers are positive. [facility] 10-03-2022 Hospital Discharg e instructions Patient Education 10/03/2022 [...] provider. Document Revised: 12/29/2019 Document Reviewed: 12/29/2019 [employer] Patient Education 2022 [employer]. Follow Up Care 09/25/2022 15:29:11 With:YIFAN CHAMBERS, Ambrocio Brower, URBenjie Address: [facility] [address] [place] [address]- When: Unknown [facility] 04-04-2022 Hospital Discharg e instructions Patient Education [...] With:Ambrocio HITCHCOCK Address: [facility] [address] [place] [address]- Business (1) When:10/02/2022 09:23:38 [facility] 03-17-2022 Hospital Discharg e instructions Patient [...] 04/30/2001 Document Revised: 05/15/2019 Document Reviewed: 12/18/2016 [employer] Patient Education 2020 CITIA. Follow Up Care 11/03/2021 14:24:28 With:Ambrocio HITCHCOCK MD, URL Address: [address] [place] [address]- When: Unknown [facility] Evaluation + Plan note Future Appointments Appointment Date:03/28/2022 12:15:00 PM Scheduled Provider: Location:[facility] Appointment Type:Urology CALL PAT FT Appointment Date:04/04/2022 09:00:00 AM Scheduled Provider: Location:[facility] Appointment Type:Urology FT Diagnostic Tests PendingBeta hCG Quantitative 03/17/22Alpha Fetoprotein Tumor Marker 03/17/22Lactate Dehydrogenase 03/17/22Urine Cytology ([facility]) 03/17/22 [facility] Evaluation + Plan note Future Appointments Appointment Date:04/27/2022 10:45:00 AM Scheduled Provider:Jordon Stout DO Location:FT.ONCOLOGY Appointment Type:ONC Office Visit 45 (FT) Appointment Date:10/03/2022 09:30:00 AM Scheduled Provider:Ambrocio HITCHCOCK MD Location:[facility] Appointment Type:URO Office Visit [facility] Evaluation + Plan note Future Appointments Appointment Date:10/12/2022 11:15:00 AM Scheduled Provider:Jordon Stout DO Location:[facility].ONCOLOGY Appointment Type:ONC Office Visit 45 (FT) Appointment Date:04/02/2023 10:30:00 AM Scheduled Provider:Ambrocio HITCHCOCK MD Location:[facility] Appointment Type:URO Office Visit Diagnostic Tests PendingBeta hCG Quantitative 10/03/22Alpha Fetoprotein Tumor Marker 10/03/22Lactate Dehydrogenase 10/03/22 [facility] Evaluation + Plan note Future Appointments Appointment Date:03/27/2023 09:00:00 AM Scheduled Provider: Location:.ONCOLOGY Appointment Type:ONC Office Visit 30 (FT) Appointment Date:04/02/2023 10:30:00 AM Scheduled Provider:Ambrocio HITCHCOCK MD [facility] Office Visit [facility] Evaluation + Plan note Future Appointments Appointment Date:03/27/2023 09:00:00 AM Scheduled Provider: Location:FT.ONCOLOGY Appointment Type:ONC Office Visit 30 (FT) Appointment Date:04/02/2023 10:30:00 AM Scheduled Provider:Ambrocio HITCHCOCK MD [facility] App[facility] Type:URO Office Visit Diagnostic Tests PendingAlpha Fetoprotein Tumor Marker 10/24/22 [facility] Evaluation + Plan note Future Appointments Appointment Date:09/24/2023 10:15:00 AM Scheduled Provider:Ambrocio HITCHCOCK MD Location:[facility] Appointment Type:URO Office Visit Diagnostic Tests PendingCBC w/ Auto Diff 03/12/23Comprehensive Metabolic Panel 03/12/23Alpha Fetoprotein Tumor Marker 03/12/23Beta hCG Quantitative 03/12/23Lactate Dehydrogenase 03/12/23 [facility] Evaluation note Diagnosis Type 2 diabetes mellitus with hyperglycemia, without long-term current use of insulin (CMS/HCC)- Primary documented in this encounter [facility] Diagnosis Annual physical exam- Primary Routine general medical examination at a health care facility Type 2 diabetes mellitus with hyperglycemia, without long-term current use of insulin (CMS/HCC) Essential hypertension, benign (CMS/HCC) Essential hypertension, benign Routine general medical examination at a health care facility Annual physical exam- Primary Routine general medical examination at a health care facility Type 2 diabetes mellitus with hyperglycemia, without long-term current use of insulin (CMS/HCC) Essential hypertension, benign (CMS/HCC) Essential hypertension, benign [facility] Narrative No data available for this section [facility] Hospital Discharge instructions No data available for this section [facility] No data available for this section [facility] reason for referral (narrative) Referred by: Ambrocio HITCHCOCK MD [facility] Summary Purpose Family History No Family History Records FoundNo Family History Records Found No data available for this section No Family History Records Found Advance Directives No Advanced Directives Records FoundNo Advanced Directives Records FoundNo Advanced Directives Records Found Additional Source Comments Patient Care team informatio n (unrecognized section and content) 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 Relationship Specialty Start Date End Date Nam Banks MD PCP - General Family Medicine 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 Relationship Specialty Start Date End Date Nam Banks MD PCP - General Family Medicine 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 Relationship Specialty Start Date End Date Nam Banks MD [address] [place] [address] PCP - General Family Medicine 12/31/23 [employer]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 Relationship Specialty Start Date End Date Nam Banks MD [address] [place] [address] PCP - General Family Medicine 12/31/23 (unrecognized sect ion and content) No Status Records FoundNo Status Records FoundNo Status Records Found INFORMATION SOURCE (unrecogn ized section and content) DATE CREATED AUTHOR 04/12/2022 [facility] DATE CREATED AUTHOR AUTHOR'S ORGANIZ ATION 01/04/2023 [facility] EPIC DATE CREATED AUTHOR AUTHOR'S ORGANIZ ATION 11/19/2023 [facility] Reason for Visit (unrecogniz ed section and content) Reason Comments Follow-up Check up FOR RECORDS PERTAINING TO PATIENTS WHO ARE [...] BE BASED ON THE PRIMARY CLINICAL RECORDS. [facility] [employer] [facility]. provides no warranty or guarantee of the accuracy or completeness of information in this document.
[2024-01-01 08:39] LABS: Basophils Absolute Auto 0.1 10^3/uL (0.0-0.1); Basophils Percent Auto 0.8 % (0.2-2.0); Eosinophils Absolute Auto 0.4 10^3/uL (0.0-0.7); Hematocrit 43.9 % (42.0-54.0); Hemoglobin 14.5 g/dL (14.0-18.0); Immature Granulocytes Abs Auto 0.01 10^3/uL (0.00-0.03); Immature Granulocytes Pct Auto 0.2 % (0.0-0.5); Lymphocytes Absolute Auto 1.5 10^3/uL (1.2-3.8); Lymphocytes Percent Auto 24.9 % (20.5-60.0); Mean Corpuscular Hemoglobin 29.9 pg (25.9-34.0); Mean Corpuscular Volume 90.5 fL (80.0-94.0); Mean Platelet Volume 9.7 fL (9.5-13.5); Monocytes Absolute Auto 0.7 10^3/uL (0.3-0.8); Monocytes Percent Auto 10.6 % (1.7-12.0); Neutrophils Absolute Auto 3.5 10^3/uL (1.4-6.5); Neutrophils Percent Auto 56.5 % (43.0-75.0); Platelet Count 254 10^3/uL (150-450); Red Blood Count 4.85 10^6/uL (4.70-6.10); Red Cell Distribution Width 12.2 % (11.0-15.0); White Blood Count 6.2 10^3/uL (4.0-11.0)
[2024-01-01 08:59] LABS: Microalbumin Urine Random 1.9 mg/dL (<=30.0)
[2024-01-01 10:47] LABS: Estimated Average Glucose 240 mg/dL
[2024-01-01 11:47] LABS: Alanine Aminotransferase 39 U/L (16-63); Albumin Level 3.7 g/dL (3.4-5.0); Alkaline Phosphatase 78 U/L (46-116); Anion Gap 14.8; Aspartate Amino Transferase 18 U/L (15-37); BUN Creatinine Ratio 15.6; Bilirubin Direct 0.1 mg/dL (0.0-0.2); Bilirubin Total 0.8 mg/dL (0.2-1.0); Calcium 8.6 mg/dL (8.5-10.1); Carbon Dioxide 23.8 mmol/L (21.0-32.0); Chloride 104 mmol/L (98-107); Chol HDL Ratio 5.7; Cholesterol 194 mg/dL (<=200); Estimated GFR (African America >60 (>=60 mL/min/1.73m^2); Estimated GFR (Non-African Ame >60 (>=60 mL/min/1.73m^2); Globulin 3.7 g/dL; Glucose 163 mg/dL (74-106); HDL Cholesterol 34 mg/dL (40-60); Potassium 3.6 mmol/L (3.5-5.1); Sodium 139 mmol/L (136-145); Thyroid Stimulating Hormone 2.273 uIU/mL (0.358-3.740); Total Protein 7.4 g/dL (6.4-8.2); Triglycerides 177 mg/dL (<=150); VLDL CHOLESTEROL 35.4 mg/dL
[2024-01-01 11:54] LABS: Prostate Specific Antigen Scrn 1.13 ng/mL (<=4.00)
== END 2024-01-01 08:09 | disposition home or self-care (01) ==
LOC: LAB 08:08
PROVIDERS: PCP Family Medicine; Visit Provider Family Medicine
DX: Z00.00 Encounter for general adult medical examination without abnormal findings (principal); E11.65 Type 2 diabetes mellitus with hyperglycemia
CPT/HCPCS: 36415; 80048; 80061; 80076; 82043; 83036; 84443; 85025; G0103

== ENCOUNTER 2024-03-21 09:24 | Outpatient (OUT) | payer OTHER, SELFPAY ==
--- OUTSIDE RECORDS SUMMARY | 2024-03-21 09:28 | XMS_ITS | CCD ---
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 Phone ROMERO LOJA Primary Care [...] Consulting Unavailable DINORA HUERTA Primary Care Unavailable DARREN, DR NAM Moe Consulting Unavailable DARREN, DR NAM Moe Attending Unavailable DARREN, DR NAM Moe Admitting Unavailable Nam Banks MD Primary Care Provider Ambrocio HITCHCOCK Attending Unavailable Ambrocio HITCHCOCK Attending Unavailable Nam Banks MD Primary Care Provider NAM BANKS Attending Unavailable NAM BANKS Attending Unavailable Allergies Allergy Classification Reported Allergen(s) Allergy Type Date of Onset Reaction(s) Facility (1 source) No Known Medication Allergies; Translations: [No Known Medication Allergies] Propensity to adverse reactions (disorder) [facility] Repository Medications Current Medications Medication Drug Class(es) Dates Sig (Normalized) Sig (Original) apixaban 5 mg oral tablet (13 sources) Factor Xa Inhibitor Start: 06-01-2023 End: [...] Status: Ordered empagliflozin 25 mg oral tablet (11 sources) Sodium-Glucose Cotransporter 2 Inhibitor Start: 07-18-2023 [...] 02/26/2023 Active glimepiride 4 mg oral tablet (13 sources) Sulfonylurea Start: 06-01-2023 take 1 tablet [...] 01/03/2023 Active lisinopril 40 mg oral tablet (13 sources) Angiotensin Converting Enzyme Inhibitor Start: 11-26-2023 take 1 tablet by mouth once daily lisinopril 40 MG tablet Indications: Essential hypertension, benign (CMS/HCC) TAKE 1 TABLET BY MOUTH EVERY DAY 90 tablet 3 11/26/2023 Active Start: 03-17-2022 lisinopril 40 mg Tab Refills(s) 0 Start Date: 03/17/22 Status: Ordered 24 hr metFORMIN hydrochloride 500 mg extended release oral tablet (13 sources) Biguanide Start: 06-04-2023 take 1 tablet [...] Refills(s) 0 Start Date: 03/17/22 Status: Ordered 0.25 mg, 0.5 mg dose 1.5 ml semaglutide 1.34 mg/ml pen injector (1 source) Start: 01-02-2024 semaglutide (O zempic, 0.25 or 0.5 MG/DOSE,) 2 MG/1.5ML solution pen-injector Indications: Type 2 diabetes mellitus with hyperglycemia, without long-term current use of insulin (CMS/HCC) 0.25 mg SC weekly x 4 weeks, then 0.5 mg weekly 1 each 3 01/02/2024 Active Start: 01-02-2024 semaglutide (O zempic, 0.25 or 0.5 MG/DOSE,) 2 MG/1.5ML solution pen-injector Indications: Type 2 diabetes mellitus with hyperglycemia, without long-term current use of insulin (CMS/HCC) 0.25 mg SC weekly x 4 weeks, then 0.5 mg weekly 1 each 3 01/02/2024 Active Completed/Discontinued Medications Medication Drug Class(es) Dates Sig (Normalized) Sig (Original) ciprofloxacin 500 mg oral tablet (2 sources) Quinolone Antimicrobial Start: 03-17-2022 Cipro 500 mg Tab 500 mg = 1 tab(s), Oral, As Directed, Pt to take 1 tab the day before procedure and the 2nd tab the day of procedure once completed., # 2 tab(s), Refills(s) 0, Pharmacy: [facility]/pharmacy #[id number], 175, cm, 03/17/22 9:53:00 EST, Height/Length Dosing, 111, kg,... Start Date: 03/17/22 Status: Ordered Problems Active Problems Problem Classification Problem Date Documented Da te Episodic/Chronic Cancer of testis (10 sources) Malignant tumor of testis; Translations: [Malignant neoplasm of unspecified testis, unspecified whether descended or undescended] Onset: 04-06-2022 03-17-2022 Chronic Diabetes mellitus with complications (13 sources) Type 2 diabetes mellitus with hyperglycemia; Translations: [Hyperglycemia due to type 2 diabetes mellitus] Onset: 01-21-2022 01-02-2023 Chronic Diabetes mellitus without complication (6 sources) Diabetes mellitus 03-17-2022 Chronic Diabetes mellitus without complication (7 sources) Glycosuria; Translations: [Glycosuria] Onset: 03-17-2022 Episodic Essential hypertension (15 sources) Hypertensive disorder; Translations: [Benign essential hypertension] Onset: 01-02-2023 03-17-2022 Chronic Genitourinary symptoms and ill-defined conditions (8 sources) Microscopic hematuria; Translations: [Asymptomatic microscopic hematuria] Onset: 03-17-2022 Episodic Other aftercare (1 source) Long-term current use of anticoagulant; 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] Onset: 10-02-2022 Episodic Other nutritional; endocrine; and metabolic disorders (7 sources) Morbid obesity; Translations: [Morbid (severe) obesity due to excess calories] Onset: 01-02-2023 01-02-2023 Chronic Residual codes; unclassified (4 sources) Statin declined; Translations: [Procedure and treatment not carried out because of patient's decision for unspecified reasons] Onset: 12-31-2023 12-31-2023 Episodic Unclassified (6 sources) Asymptomatic microscopic hematuria 03-17-2022 Unclassified (4 sources) Drug therapy finding 10-02-2022 Past or Other Problems Problem Classification Problem Date Documented Da te Episodic/Chronic Cancer of testis (19 sources) History of malignant neoplasm of male genital organ; Translations: [Personal history of malignant neoplasm of testis] Onset: 03-17-2022 Episodic Phlebitis; thrombophlebitis and thromboembolism (7 sources) H/O: Deep vein thrombosis; Translations: [Personal history of other venous thrombosis and embolism] Onset: 01-02-2023 01-02-2023 Episodic Results Test Name Value Interpretation Reference Range Facility ALL BASIC METABOLIC PANELon 01-01-2024 Anion gap [Moles/Vol] 14.8 mmol/L [facility] Calcium [Mass/Vol] 8.6 mg/dL 8.5 - 10. 1 mg/dL [facility] Chloride [Moles/Vol] 104 mmol/L 98 - 10 7 mmol/L [facility] CO2 [Moles/Vol] 23.8 mmol/L 21.0 - 32.0 mmol/L [facility] Creatinine [Mass/Vol] 1.09 mg/dL 0.70 - 1.30 mg/dL [facility] GFR/1.73 sq M.predicted CKD-EPI (S/P/Bld) [Vol rate/Area] >60 >=60 mL/min/1.73 m 2 [facility] Glucose [Mass/Vol] 163 mg/dL High 74 - 106 mg/dL [facility] Potassium [Moles/Vol] 3.6 mmol/L 3.5 - 5.1 mmol/L [facility] Sodium [Moles/Vol] 139 mmol/L 136 - 145 mmol/L [facility] TBH EGFR-NON AF SAMMARINESE >60 >=60 mL/min/1.73 m 2 [facility] Urea nitrogen [Mass/Vol] 17 mg/dL 7.0 - 18.0 mg/dL [facility] Urea nitrogen/Creatinine [Mass ratio] 15.6 mg/mg [facility] ALL CBC WITH AUTO DIFFon BASOPHILS ABSOLUTE AUTO 0.1 [facility] Basophils/100 WBC (Bld) 0.8 % 0.2 - 2.0 % [facility] Eosinophils/100 WBC (Bld) 7 % 0.9 - 7.0 % [facility] Erythrocyte distribution width (RBC) [Ratio] 12.2 % 11.0 - 15.0 % [facility] Hematocrit (Bld) [Volume fraction] 43.9 % 42.0 - 54.0 % [facility] Hemoglobin (Bld) [Mass/Vol] 14.5 g/dL 14.0 - 18.0 g/dL [facility] IMMATURE GRANULOCYTES ABS AUTO 0.01 [facility] Immature granulocytes/100 WBC (Bld) 0.2 % 0.0 - 0.5 % [facility] LYMPHOCYTES ABSOLUTE AUTO 1.5 [facility] Lymphocytes/100 WBC (Bld) 24.9 % 20.5 - 60.0 % [facility] MCH (RBC) [Entitic mass] 29.9 pg 25.9 - 34.0 pg [facility] MCHC (RBC) [Mass/Vol] 33 g/dL 29.9 - 35.2 g/dL [facility] MCV (RBC) [Entitic vol] 90.5 fL 80.0 - 94.0 fL [facility] MONOCYTES ABSOLUTE AUTO 0.7 [facility] Monocytes/100 WBC (Bld) 10.6 % 1.7 - 12.0 % [facility] NEUTROPHILS ABSOLUTE AUTO 3.5 [facility] Neutrophils/100 WBC (Bld) 56.5 % 43.0 - 75.0 % [facility] Platelet mean volume (Bld) [Entitic vol] 9.7 fL 9.5 - 13.5 fL [facility] EO # 0.4 [facility] PLT 254 [facility] TB RBC 4.85 [facility] WBC 6.2 [facility] ALL LIPID PROFILE (FASTING)o n 01-01-2024 CHOL HDL RATIO 5.7 [facility] Comment on above: 3.3 - 4.4 LOW RISK 4.4 - 7.1 AVERAGE RISK 7.1 - 11.0 MODERATE RISK >11.0 HIGH RISK Cholesterol [Mass/Vol] 194 mg/dL NINF - 200 mg/dL [facility] Cholesterol in HDL [Mass/Vol] 34 mg/dL Low 40 - 60 mg/dL [facility] Comment on above: > or =60 mg/dl - LOW CARDIOVASCULAR RISK <40 mg/dl - HIGH CARDIOVASCULAR RISK Magnesium [Mass/Vol] 125 mg/dL [facility] Comment on above: <100 mg/dl OPTIMAL 100-129 mg/dl NEAR OR ABOVE OPTIMAL 130-159 mg/dl BORDERLINE HIGH 160-189 mg/dl HIGH >190 mg/dl VERY HIGH Magnesium [Mass/Vol] 35.4 mg/dL [facility] Triglyceride [Mass/Vol] 177 mg/dL High NINF - 150 mg/dL [facility] ALL THYROID STIM HORMONEon 1 03-02-2023 TSH Qn 2.273 [facility][IU]/[facility] Albumin [Mass/Vol] 3.7 g/dL 3.4 - 5.0 g/dL [facility] ALBUMIN GLOBULIN RATIO 1 [facility] ALP [Catalytic activity/Vol] 78 U/L 46 - 116 U/L [facility] ALT [Catalytic activity/Vol] 39 U/L 16 - 63 U/L [facility] AST [Catalytic activity/Vol] 18 U/L 15 - 37 U/L [facility] Bilirubin [Mass/Vol] 0.8 mg/dL 0.2 - 1 .0 mg/dL [facility] Bilirubin.indirect [Mass/Vol] 0.1 mg/dL 0.0 - 0.2 mg/dL [facility] Globulin (S) [Mass/Vol] 3.7 g/dL [facility] Protein [Mass/Vol] 7.4 g/dL 6.4 - 8.2 g/dL [facility] MLR HEMOGLOBIN A1Con 024 Glucose [Mass/Vol] 240 mg/dL [facility] HbA1c (Bld) [Mass fraction] 10 % High 4.5 - 6.2 % [facility] Comment on above: ADA RECOMMENDED LIMI T 4.0 - 6.0 ADA THERAPEUTIC TARGET < 7.0 ACTION SUGGESTED > 7.0 Interpretation and review of laboratory results Abnormal [facility] No Panel Informationon 12-31 Interpretation and review of laboratory results Abnormal [facility] SRMCOH PROSTATE SPECIFIC ANT IGEN SCRNon 01-01-2024 PROSTATE SPECIFIC ANTIGEN SCRN 1.13 ng/mL NINF - 4.00 ng/mL [facility] TBH MICROALBUMIN, RAND URon 01-01-2024 MICROALBUMIN URINE RANDOM 1.9 mg/dL NINF - 30.0 mg/dL [facility] Provider Letteron 11-16-2023 Provider Letter Provider Letter November 16, 2023 ROMERO MOULTON [address] [place] [phone] : 1980 Dear Mr. Romero Moulton , This letter is to inform you the providers of [facility] (dr. Ambrocio Hitchcock) will no longer be responsible for your routine medical care due to your noncompliance. Emergency care only will be provided for the thirty (30) days following this letter. During this time period we suggest that you find another physician for your medical needs. A listing of area physicians can be found on [facility]'s website at [email or web address] or you may contact your health plan. We will be glad to forward your records to your new physician as long as we receive a signed release of records form. Sincerely, Ambrocio Hitchcock M.D., F.A.C.S. [facility] [address] [place], [place] [id number] , option #3 Normal [facility] Reminderson 09-11-2023 Reminders Reminders From: More Valles To: TAHIRA Hitchcock; Sent: 04/02/2023 12:20:33 EST Show up: 08/06/2023 12:20:00 EDT Subject: Ct scan,CXR, tumor markers Due Date/Time: 08/27/2023 12:20:00 EDT Reminder/Recall Patient needs Ct scan Abd/pelvis w contrast, tumor markers and CXR prior to September 23 appt. Pt wants [facility] Orders, demographics, & H&P faxed to [facility]. They will precert and call pt to schedule. LM on pt's VM notifying him that [facility] will be reaching out to him to get him scheduled. Appt 09/24/23 w/PRW to review results. Per Steph @ [facility] JOCELYNN, they left message on pt's VM yesterday requesting he call back to schedule. [facility] did call and speak to pt. Pt states he would call back to schedule. Prior Auth does 10/05/23. Pt does have a follow up scheduled w/PRW 09/24/23. Did LM on VM informing pt that if testing is not completed prior to appt, that he will need to call our office and RS appt w/PRW. Normal [facility] Ambulatory Visit Summaryon 0 04-02-2023 Ambulatory Visit [...] physician. Your Care Team Attending Physician - YIFAN CHAMBERS, Ambrocio Brower Primary Care Physician - [...] Ambrocio HITCHCOCK MD Where: [facility] Outside Radiologyon 04-02-19 Outside Radiology [id number]#1.00TIFF [facility] Patient Educationon 04-02-19 Patient Education Oncology Cancer Screening for Men [...] if anything looks unusual. Men with a [id number] risk for skin cancer may want to see a enrichment specialist (desktop publisher) for an annual body check. What are the benefits of screening? Cancer screening is done to look for cancer in the very early stages, before it spreads and becomes harder to treat and before you would start to notice symptoms. Finding cancer early improves the chances of successful treatment. It ma (more content not included)... 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 One cycle of adjuvant chemotherapy 01/2021. Hem onc consult 05/16/21 - Recommended active f/u and surveillance. Clinical f/u q3mos first two years, annual surveillance CT of AP and CXR 6-12 mos in first year following completion of tx regimen. Pt moved to [place] from [place] and established with this practice. Testicular tumor [...] Stout so he saw an oncologist in [place], unsure of name. Testicular tumor markers 03/20/23 [...] infection. Denies gross hematuria. 3. Anticoagulated (Z79.01: [facility] (current) use of anticoagulants) Hx of DVT, on lifelong AC (Eliquis) therapy. Two episodes of DVT 2008 and 2016. [2] Follow-up With When Contact Information YIFAN CHAMBERS, Ambrocio Brower, URL [facility] [address], [place] [phone] Additional Instructions: 6 mos w/ CXR, CT [...] Urine Dipstic (more content not included)... Normal [facility] Comment on above: Result Comment: Elec tronically Signed By: Ambrocio HITCHCOCK MD\.br\Date and Time Signed: 04/02/23 12:19 EST\.br\Electronically Co-Signed By: Portia Castaneda\.br\Date and Time Co-Signed: 04/02/23 12:17 EST Lab Reportson 03-21-2023 Lab Reports [id number]#1.00TIFF Normal [facility] Laboratory Outside Office Co pyon 03-21-2023 Laboratory Outside Office Copy [id number]#1.00TIFF Normal [facility] Outside Radiologyon 03-21-19 24 Outside Radiology [id number]#1.00TIFF Normal [facility] Outside Radiology [id number]#1.00TIFF Normal [facility] ALL CBC WITH AUTO DIFFon BASOPHILS ABSOLUTE AUTO 0.1 [facility] Basophils/100 WBC (Bld) 0.8 % 0.2 - 2.0 % [facility] Eosinophils/100 WBC (Bld) 4.0 % 0.9 - 7.0 % [facility] Erythrocyte distribution width (RBC) [Ratio] 12.6 % 11.0 - 15.0 % [facility] Hematocrit (Bld) [Volume fraction] 46.0 % 42.0 - 54.0 % [facility] Hemoglobin (Bld) [Mass/Vol] 14.9 g/dL 14.0 - 18.0 g/dL [facility] IMMATURE GRANULOCYTES ABS AUTO 0.02 [facility] Immature granulocytes/100 WBC (Bld) 0.3 % 0.0 - 0.5 % [facility] LYMPHOCYTES ABSOLUTE AUTO 1.6 [facility] Lymphocytes/100 WBC (Bld) 26.8 % 20.5 - 60.0 % [facility] MCH (RBC) [Entitic mass] 29.1 pg 25.9 - 34.0 pg [facility] MCHC (RBC) [Mass/Vol] 32.4 g/dL 29.9 - 35.2 g/dL [facility] MCV (RBC) [Entitic vol] 89.8 fL 80.0 - 94.0 fL [facility] MONOCYTES ABSOLUTE AUTO 0.6 [facility] Monocytes/100 WBC (Bld) 9.2 % 1.7 - 12.0 % [facility] NEUTROPHILS ABSOLUTE AUTO 3.5 [facility] Neutrophils/100 WBC (Bld) 58.9 % 43.0 - 75.0 % [facility] Platelet mean volume (Bld) [Entitic vol] 9.5 fL 9.5 - 13.5 fL [facility] TBH EO # 0.2 [facility] PLT 246 [facility] RBC 5.12 [facility] WBC 6.0 [facility] Lab Reportson 03-20-2023 Lab Reports [id number]#1.00TIFF [facility] Outside Labson 03-20-2023 Outside Labs [id number]#1.00TIFF [facility] Physician Orderon 03-05-2023 Physician Order [id number]#1.00TIFF [facility] CHEMISTRYOrdered By: SYSTEM SYSTEM on 10-24-2022 Albumin [...] 8.5 % Normal 4.0 - 14.0 % [facility] Monocytes/Leukocytes Auto (Bld) [Pure # fraction] 0.6 E9/L Normal 0.2 - 1.0 E9/L [facility] Neutrophils/100 WBC (Bld) 62.8 % Normal 36.0 - 75.0 % [facility] Neutrophils/Leukocyt es Auto (Bld) [Pure # fraction] 4.6 E9/L Normal 2.0 - 7.5 E9/L [facility] HEMATOLOGYOrdered By: Salma Bright on 10-24-2022 Erythrocyte distribution width (RBC) [Ratio] 12.9 % Normal 10.9 - 14.2 % [facility] Hematocrit (Bld) [Volume fraction] 40.9 % Normal 37.7 - 49.0 % [facility] Hemoglobin (Bld) [Mass/Vol] 13.9 g/dL Normal 13.5 - 17.5 gm/dL [facility] MCH (RBC) [Entitic mass] 30.3 pg Normal 27.0 - 34.0 pg [facility] MCHC (RBC) [Mass/Vol] 34.0 g/dL Normal 31.4 - 36.0 gm/dL [facility] MCV (RBC) [Entitic vol] 89.2 fL Normal 80.0 - 100.0 fL [facility] HemeAutoSS Platelet mean volume (Bld) [Entitic vol] 8.4 fL Normal 6.4 - 10.8 fL [facility] Platelets (Bld) [#/Vol] 343.0 E9/L Normal 150.0 - 500.0 E9/L [facility] RBC (Bld) [#/Vol] 4.6 E12/L Normal 4.3 - 5.9 E12/L [facility] WBC corrected for nucl RBC Auto (Bld) [#/Vol] 7.3 E9/L Normal 4.0 - 11.0 E9/L [facility] Reference Laboratory Testing Ordered By: Carmel Jacobson on 10-24-2022 Test Code 195125 Invalid Interpretation Code [facility] Test Name hCG b-sub Invalid Interpretation Code [facility] CREATININEon 04-06-2022 Creatinine [Mass/Vol] 0.93 mg/dL Normal 0.70-1.30 [facility] Comment on above: Performed By: #### B MP, TSH, LIPID, LIVER #### [facility] [address] [place], [place] [address] Dr. Michelle Rogers EGFR-AF SAMMARINESE >60 Normal >=60 [facility] Comment on above: Performed By: #### B MP, TSH, LIPID, LIVER #### [facility] [address] [place], [place] [address] Dr. Michelle Rogers EGFR-NON AF SAMMARINESE >60 Normal >=60 [facility] Comment on above: Performed By: #### B MP, TSH, LIPID, LIVER #### [facility] [address] [place], [place] [address] ABD/PELV WO W [...] by: EVELIA ASENCIO Date: 2022-04-06 12:14 Normal [facility] XR CHEST 03-23-2022 XR CHEST 2 V EXAMINATION: XR [...] LIZZ GENTILE Date: 2022-03-23 09:07 Normal [facility] AFP (TUMOR MARKER)on 023 AFP, Serum, Tumor Marker <1.8 Normal 0.0-6.9 [facility] Comment on above: Result Comment: [employer] Electrochemiluminescence Immunoassay (ECLIA) . Values obtained with different assay methods or kits cannot be used interchangeably. Results cannot be interpreted as absolute evidence of the presence or absence of malignant disease. . This test is not interpretable in females. Performed By: #### A FP. #### [facility] [address] [place] [address] Dr. Michelle Rogers HCG QUANT TUMOR MARKERon HCG QNT TUMOR MARKER <1 Normal 0-3 [facility] Comment on above: Result Comment: [employer] Electrochemiluminescence Immunoassay (ECLIA) . The [employer] [...] developed and its performance characteristics determined by [employer]. It has not been cleared or approved by the Food and Drug Administration for use as a tumor marker. . This test is not interpretable as a tumor marker in females. Performed By: #### B MP, TSH, LIPID, LIVER #### [facility] [address] [place] [address] Dr. Michelle Rogers LDHon 03-21-2022 LDH 115 U/L Normal 85-227 [facility] Comment on above: Performed By: #### L DH #### [facility] [address] [place] [address] Dr. Michelle Rogers CBC AUTO DIFFon 01-17-2022 BASO # 0.1 103/ul Normal 0.0-0.1 [facility] Comment on above: Performed By: #### C BC #### [facility] [address] [place] [address] Dr. Michelle Rogers Basophils/100 WBC (Bld) 0.8 % Normal 0.2-2.0 [facility] Comment on above: Performed By: #### C BC #### [facility] [address] [place] [address] Dr. Michelle Rogers EO # 0.6 103/ul Normal 0.0-0.7 [facility] Comment on above: Performed By: #### C BC #### [facility] [address] [place] [address] Dr. Michelle Rogers Eosinophils/100 WBC (Bld) 10.0 % Critically high 0.9-7.0 [facility] Comment on above: Performed By: #### C BC #### [facility] [address] [place] [address] Dr. Michelle Rogers Erythrocyte distribution width (RBC) [Ratio] 12.2 % Normal 11.0-15.0 [facility] Comment on above: Performed By: #### C BC #### [facility] [address] [place] [address] Dr. Michelle Rogers Hematocrit (Bld) [Volume fraction] 41.1 % Critically low 42.0-54.0 [facility] Comment on above: Performed By: #### C BC #### [facility] [address] [place] [address] Dr. Michelle Rogers Hemoglobin (Bld) [Mass/Vol] 14.3 g/dL Normal 14.0-18.0 [facility] Comment on above: Performed By: #### C BC #### [facility] [address] [place] [address] Dr. Michelle Rogers IG # 0.01 10e3/ul Normal 0.00-0.03 [facility] Comment on above: Performed By: #### C BC #### [facility] [address] [place] [address] Dr. Michelle Rogers IG % 0.2 % Normal 0.0-0.5 [facility] Comment on above: Performed By: #### C BC #### [facility] [address] [place] [address] Dr. Michelle Rogers LYMPH # 1.6 103/ul Normal 1.2-3.8 [facility] Comment on above: Performed By: #### C BC #### [facility] [address] [place] [address] Dr. Michelle Rogers Lymphocytes/100 WBC (Bld) 26.3 % Normal 20.5-60.0 [facility] Comment on above: Performed By: #### C BC #### [facility] [address] [place] [address] Dr. Michelle Rogers MANUAL DIFF REQ NO Normal [facility] Comment on above: Performed By: #### C BC #### [facility] [address] [place] [address] Dr. Michelle Rogers MCH (RBC) [Entitic mass] 30.3 pg Normal 25.9-34.0 [facility] Comment on above: Performed By: #### C BC #### [facility] [address] [place] [address] Dr. Michelle Rogers MCHC (RBC) [Mass/Vol] 34.8 g/dL Normal 29.9-35.2 [facility] Comment on above: Performed By: #### C BC #### [facility] [address] [place] [address] Dr. Michelle Rogers MCV (RBC) [Entitic vol] 87.1 fL Normal 80.0-94.0 [facility] Comment on above: Performed By: #### C BC #### [facility] [address] [place] [address] Dr. Michelle Rogers MONO # 0.5 103/ul Normal 0.3-0.8 [facility] Comment on above: Performed By: #### C BC #### [facility] [address] [place] [address] Dr. Michelle Rogers Monocytes/100 WBC (Bld) 8.3 % Normal 1.7-12.0 [facility] Comment on above: Performed By: #### C BC #### [facility] [address] [place] [address] Dr. Michelle Rogers NEUT # 3.2 103/ul Normal 1.4-6.5 [facility] Comment on above: Performed By: #### C BC #### [facility] [address] [place] [address] Dr. Michelle Rogers Neutrophils/100 WBC (Bld) 54.4 % Normal 43.0-75.0 [facility] Comment on above: Performed By: #### C BC #### [facility] [address] [place] [address] Dr. Michelle Rogers Platelet mean volume (Bld) [Entitic vol] 9.8 fL Normal 9.5-13.5 [facility] Comment on above: Performed By: #### C BC #### [facility] [address] [place] [address] Dr. Michelle Rogers PLT 230 103/ul Normal 150-450 [facility] Comment on above: Performed By: #### C BC #### [facility] [address] [place] [address] Dr. Michelle Rogers RBC 4.72 106/ul Normal 4.70-6.10 [facility] Comment on above: Performed By: #### C BC #### [facility] [address] [place] [address] Dr. Michelle Rogers WBC 5.9 103/ul Normal 4.0-11.0 [facility] Comment on above: Performed By: #### C BC #### [facility] [address] [place] [address] Dr. Michelle Rogers GLYCOHEMOGLOBIN A1Con 2021 ADA RECOMMENDATION SEE BELOW Normal [facility] Comment on above: Result Comment: ADA RECOMMENDED LIMIT 4.0 - 6.0 ADA THERAPEUTIC TARGET < 7.0 ACTION SUGGESTED > 7.0 Performed By: #### B MP, TSH, LIPID, LIVER #### [facility] [address] [place] [address] Dr. Michelle Rogers Glucose [Mass/Vol] 194 mg/dL Normal [facility] Comment on above: Performed By: #### B MP, TSH, LIPID, LIVER #### [facility] [address] [address] [address] Michelle Rogers HbA1c (Bld) [Mass fraction] 8.4 % Critically high 4.5-6.2 [facility] Comment on above: Performed By: #### B MP, TSH, LIPID, LIVER #### [facility] [address] [place] [address] Dr. Michelle Rogers LIPID PROFILEon 01-17-2022 CHOL-HDL RATIO NORM SEE BELOW Normal [facility] Comment on above: Result Comment: 3.3 - 4.4 LOW RISK 4.4 - 7.1 AVERAGE RISK 7.1 - 11.0 MODERATE RISK >11.0 HIGH RISK Performed By: #### B MP, TSH, LIPID, LIVER #### [facility] [address] [place] [address] Dr. Michelle Rogers Cholesterol [Mass/Vol] 168 mg/dL Normal <=200 [facility] Comment on above: Performed By: #### B MP, TSH, LIPID, LIVER #### [facility] [address] [place] [address] Dr. Michelle Rogers Cholesterol in HDL [Mass/Vol] 31 mg/dL Critically low 40-60 [facility] Comment on above: Performed By: #### B MP, TSH, LIPID, LIVER #### [facility] [address] [place] [address] Dr. Michelle Rogers Cholesterol in LDL [Mass/Vol] 79.4 mg/dL Normal [facility] Comment on above: Performed By: #### B MP, TSH, LIPID, LIVER #### [facility] [address] [place] [address] Dr. Michelle Rogers Cholesterol.total/Ch olesterol in HDL [Mass ratio] 5.4 {ratio} Normal [facility] Comment on above: Performed By: #### B MP, TSH, LIPID, LIVER #### [facility] [address] [place] [address] Dr. Michelle Rogers HDL NORMAL > or = 60 mg/dl - LO W CARDIOVASCULAR RISK <40 mg/dl - HIGH CARDIOVASCULAR RISK Normal [facility] Comment on above: Performed By: #### B MP, TSH, LIPID, LIVER #### [facility] [address] [place] [address] Dr. Michelle Rogers LDL CALC NORMAL SEE BELOW Normal [facility] Comment on above: Result Comment: <100 mg/dl OPTIMAL 100 - 129 mg/dl NEAR OR ABOVE OPTIMAL 130 - 159 mg/dl BORDERLINE HIGH 160 - 189 mg/dl HIGH >190 mg/dl VERY HIGH Performed By: #### B MP, TSH, LIPID, LIVER #### [facility] [address] [place] [address] Dr. Michelle Rogers Triglyceride [Mass/Vol] 288 mg/dL Critically high <=150 [facility] Comment on above: Performed By: #### B MP, TSH, LIPID, LIVER #### [facility] [address] [place] [address] Dr. Michelle Rogers VLDL CALC 57.6 mg/dL Normal [facility] Comment on above: Performed By: #### B MP, TSH, LIPID, LIVER #### [facility] [address] [place] [address] Dr. Michelle Rogers LIVER PROFILEon 01-17-2022 Albumin [Mass/Vol] 3.8 g/dL Normal 3.4-5.0 [facility] Comment on above: Performed By: #### B MP, TSH, LIPID, LIVER #### [facility] [address] [place] [address] Dr. Michelle Rogers Albumin/Globulin [Mass ratio] 1.0 {ratio} Normal [facility] Comment on above: Performed By: #### B MP, TSH, LIPID, LIVER #### [facility] [address] [place] [address] Dr. Michelle Rogers ALP [Catalytic activity/Vol] 98 U/L Normal 46-116 [facility] Comment on above: Performed By: #### B MP, TSH, LIPID, LIVER #### [facility] [address] [address] [address] Michelle Rogers ALT [Catalytic activity/Vol] 42 U/L Normal 16-63 [facility] Comment on above: Performed By: #### B MP, TSH, LIPID, LIVER #### [facility] [address] [address] [address] Michelle Rogers AST [Catalytic activity/Vol] 26 U/L Normal 15-37 [facility] Comment on above: Performed By: #### B MP, TSH, LIPID, LIVER #### [facility] [address] [place] [address] Dr. Michelle Rogers BILI, CONJUGATED 0.1 mg/dL Normal 0.0-0.2 [facility] Comment on above: Performed By: #### B MP, TSH, LIPID, LIVER #### [facility] [address] [place] [address] Dr. Michelle Rogers Bilirubin [Mass/Vol] 0.4 mg/dL Normal 0.2-1.0 [facility] Comment on above: Performed By: #### B MP, TSH, LIPID, LIVER #### [facility] [address] [place] [address] Dr. Michelle Rogers Globulin (S) [Mass/Vol] 3.8 g/dL Normal [facility] Comment on above: Performed By: #### B MP, TSH, LIPID, LIVER #### [facility] [address] [place] [address] Dr. Michelle Rogers Protein [Mass/Vol] 7.6 g/dL Normal 6.4-8.2 [facility] Comment on above: Performed By: #### B MP, TSH, LIPID, LIVER #### [facility] [address] [place] [address] Dr. Michelle Rogers MICROALBUMIN, RAND URon 12-1 mALB <1.3 Normal <=30.0 [facility] Comment on above: Performed By: #### B MP, TSH, LIPID, LIVER #### [facility] [address] [place] [address] Dr. Michelle Rogers PROF CHEM 8 (BAS METB)on Anion gap [Moles/Vol] 11.7 mmol/L Normal [facility] Comment on above: Performed By: #### B MP, TSH, LIPID, LIVER #### [facility] [address] [place] [address] Dr. Michelle Rogers Calcium [Mass/Vol] 8.8 mg/dL Normal 8.5-10.1 [facility] Comment on above: Performed By: #### B MP, TSH, LIPID, LIVER #### [facility] [address] [place] [address] Dr. Michelle Rogers Chloride [Moles/Vol] 101 mmol/L Normal 98-107 [facility] Comment on above: Performed By: #### B MP, TSH, LIPID, LIVER #### [facility] [address] [place] [address] Dr. Michelle Rogers CO2 [Moles/Vol] 26.4 mmol/L Normal 21.0-32.0 [facility] Comment on above: Performed By: #### B MP, TSH, LIPID, LIVER #### [facility] [address] [place] [address] Dr. Michelle Rogers Creatinine [Mass/Vol] 1.03 mg/dL Normal 0.70-1.30 [facility] Comment on above: Performed By: #### B MP, TSH, LIPID, LIVER #### [facility] [address] [place] [address] Dr. Michelle Rogers EGFR-AF SAMMARINESE >60 Normal >=60 [facility] Comment on above: Performed By: #### B MP, TSH, LIPID, LIVER #### [facility] [address] [place] [address] Dr. Michelle Rogers EGFR-NON AF SAMMARINESE >60 Normal >=60 [facility] Comment on above: Performed By: #### B MP, TSH, LIPID, LIVER #### [facility] [address] [place] [address] Dr. Michelle Rogers Glucose [Mass/Vol] 373 mg/dL Critically high 74-106 [facility] Comment on above: Performed By: #### B MP, TSH, LIPID, LIVER #### [facility] [address] [place] [address] Dr. Michelle Rogers Potassium [Moles/Vol] 4.1 mmol/L Normal 3.5-5.1 [facility] Comment on above: Performed By: #### B MP, TSH, LIPID, LIVER #### [facility] [address] [place] [address] Dr. Michelle Rogers Sodium [Moles/Vol] 135 mmol/L Critically low 136-145 [facility] Comment on above: Performed By: #### B MP, TSH, LIPID, LIVER #### [facility] [address] [place] [address] Dr. Michelle Rogers Urea nitrogen [Mass/Vol] 17.0 mg/dL Normal 7.0-18.0 [facility] Comment on above: Performed By: #### B MP, TSH, LIPID, LIVER #### [facility] [address] [place] [address] Dr. Michelle Rogers Urea nitrogen/Creatinine [Mass ratio] 16.5 mg/mg Normal [facility] Comment on above: Performed By: #### B MP, TSH, LIPID, LIVER #### [facility] [address] [place] [address] Dr. Michelle Rogers TSHon 01-17-2022 TSH 1.801 uIU/mL Normal 0.358-3.740 [facility] Comment on above: Performed By: #### B MP, TSH, LIPID, LIVER #### [facility] [address] [place] [address] Dr. Michelle Rogers INSULINon 11-16-2021 Insulin 14.4 uIU/mL Normal 2.6-24.9 [facility] Comment on above: Performed By: #### B MP, TSH, LIPID, LIVER #### [facility] [address] [place] [address] Dr. Michelle Rogers CBC AUTO DIFFon 11-15-2021 BASO # 0.0 103/ul Normal 0.0-0.1 [facility] Comment on above: Performed By: #### C BC #### [facility] [address] [place] [address] Dr. Micehlle Rogers Basophils/100 WBC (Bld) 0.7 % Normal 0.2-2.0 [facility] Comment on above: Performed By: #### C BC #### [facility] [address] [place] [address] Dr. Michelle Rogers EO # 0.4 103/ul Normal 0.0-0.7 [facility] Comment on above: Performed By: #### C BC #### [facility] [address] [place] [address] Dr. Michelle Rogers Eosinophils/100 WBC (Bld) 6.5 % Normal 0.9-7.0 [facility] Comment on above: Performed By: #### C BC #### [facility] [address] [place] [address] Dr. Michelle Rogers Erythrocyte distribution width (RBC) [Ratio] 12.5 % Normal 11.0-15.0 [facility] Comment on above: Performed By: #### C BC #### [facility] [address] [place] [address] Dr. Michelle Rogers Hematocrit (Bld) [Volume fraction] 41.8 % Critically low 42.0-54.0 [facility] Comment on above: Performed By: #### C BC #### [facility] [address] [place] [address] Dr. Michelle Rogers Hemoglobin (Bld) [Mass/Vol] 14.2 g/dL Normal 14.0-18.0 [facility] Comment on above: Performed By: #### C BC #### [facility] [address] [place] [address] Dr. Michelle Rogers IG # 0.01 10e3/ul Normal 0.00-0.03 [facility] Comment on above: Performed By: #### C BC #### [facility] [address] [place] [address] Dr. Michelle Rogers IG % 0.2 % Normal 0.0-0.5 [facility] Comment on above: Performed By: #### C BC #### [facility] [address] [place] [address] Dr. Michelle Rogers LYMPH # 1.4 103/ul Normal 1.2-3.8 [facility] Comment on above: Performed By: #### C BC #### [facility] [address] [place] [address] Dr. Michelle Rogers Lymphocytes/100 WBC (Bld) 24.4 % Normal 20.5-60.0 [facility] Comment on above: Performed By: #### C BC #### [facility] [address] [place] [address] Dr. Michelle Rogers MANUAL DIFF REQ NO Normal [facility] Comment on above: Performed By: #### C BC #### [facility] [address] [place] [address] Dr. Michelle Rogers MCH (RBC) [Entitic mass] 30.7 pg Normal 25.9-34.0 [facility] Comment on above: Performed By: #### C BC #### [facility] [address] [place] [address] Dr. Michelle Rogers MCHC (RBC) [Mass/Vol] 34.0 g/dL Normal 29.9-35.2 [facility] Comment on above: Performed By: #### C BC #### [facility] [address] [place] [address] Dr. Michelle Rogers MCV (RBC) [Entitic vol] 90.5 fL Normal 80.0-94.0 [facility] Comment on above: Performed By: #### C BC #### [facility] [address] [place] [address] Dr. Michelle Rogers MONO # 0.5 103/ul Normal 0.3-0.8 [facility] Comment on above: Performed By: #### C BC #### [facility] [address] [place] [address] Dr. Michelle Rogers Monocytes/100 WBC (Bld) 9.0 % Normal 1.7-12.0 [facility] Comment on above: Performed By: #### C BC #### [facility] [address] [place] [address] Dr. Michelle Rogers NEUT # 3.4 103/ul Normal 1.4-6.5 [facility] Comment on above: Performed By: #### C BC #### [facility] [address] [place] [address] Dr. Michelle Rogers Neutrophils/100 WBC (Bld) 59.2 % Normal 43.0-75.0 [facility] Comment on above: Performed By: #### C BC #### [facility] [address] [place] [address] Dr. Michelle Rogers Platelet mean volume (Bld) [Entitic vol] 9.6 fL Normal 9.5-13.5 [facility] Comment on above: Performed By: #### C BC #### [facility] [address] [place] [address] Dr. Michelle Rogers PLT 215 103/ul Normal 150-450 [facility] Comment on above: Performed By: #### C BC #### [facility] [address] [place] [address] Dr. Michelle Rogers RBC 4.62 106/ul Critically low 4.70-6.10 [facility] Comment on above: Performed By: #### C BC #### [facility] [address] [place] [address] Dr. Michelle Rogers WBC 5.7 103/ul Normal 4.0-11.0 [facility] Comment on above: Performed By: #### C BC #### [facility] [address] [place] [address] Dr. Michelle Rogers GLYCOHEMOGLOBIN A1Con 2021 ADA RECOMMENDATION SEE BELOW Normal [facility] Comment on above: Result Comment: ADA RECOMMENDED LIMIT 4.0 - 6.0 ADA THERAPEUTIC TARGET < 7.0 ACTION SUGGESTED > 7.0 Performed By: #### A 1C #### [facility] [address] [place] [address] Dr. Michelle Rogers Glucose [Mass/Vol] 186 mg/dL Normal [facility] Comment on above: Performed By: #### A 1C #### [facility] [address] [address] [address] Michelle Rogers HbA1c (Bld) [Mass fraction] 8.1 % Critically high 4.5-6.2 [facility] Comment on above: Performed By: #### A 1C #### [facility] [address] [address] [address] Michelle Rogers LIPID PROFILEon 11-15-2021 CHOL-HDL RATIO NORM SEE BELOW Normal [facility] Comment on above: Result Comment: 3.3 - 4.4 LOW RISK 4.4 - 7.1 AVERAGE RISK 7.1 - 11.0 MODERATE RISK >11.0 HIGH RISK Performed By: #### B MP, TSH, LIPID, LIVER #### [facility] [address] [place] [address] Dr. Michelle Rogers Cholesterol [Mass/Vol] 181 mg/dL Normal <=200 [facility] Comment on above: Performed By: #### B MP, TSH, LIPID, LIVER #### [facility] [address] [address] [address] Michelle Rogers Cholesterol in HDL [Mass/Vol] 34 mg/dL Critically low 40-60 [facility] Comment on above: Performed By: #### B MP, TSH, LIPID, LIVER #### [facility] [address] [address] [address] Michelle Rogers Cholesterol in LDL [Mass/Vol] 112.2 mg/dL Normal [facility] Comment on above: Performed By: #### B MP, TSH, LIPID, LIVER #### [facility] [address] [address] [address] Michelle Rogers Cholesterol.total/Ch olesterol in HDL [Mass ratio] 5.3 {ratio} Normal [facility] Comment on above: Performed By: #### B MP, TSH, LIPID, LIVER #### [facility] [address] [address] [address] Michelle Rogers HDL NORMAL > or = 60 mg/dl - LO W CARDIOVASCULAR RISK <40 mg/dl - HIGH CARDIOVASCULAR RISK Normal [facility] Comment on above: Performed By: #### B MP, TSH, LIPID, LIVER #### [facility] [address] [address] [address] Michelle Rogers LDL CALC NORMAL SEE BELOW Normal [facility] Comment on above: Result Comment: <100 mg/dl OPTIMAL 100 - 129 mg/dl NEAR OR ABOVE OPTIMAL 130 - 159 mg/dl BORDERLINE HIGH 160 - 189 mg/dl HIGH >190 mg/dl VERY HIGH Performed By: #### B MP, TSH, LIPID, LIVER #### [facility] [address] [address] [address] Michelle Rogers Triglyceride [Mass/Vol] 174 mg/dL Critically high <=150 [facility] Comment on above: Performed By: #### B MP, TSH, LIPID, LIVER #### [facility] [address] [place] [address] Dr. Michelle Rogers VLDL CALC 34.8 mg/dL Normal [facility] Comment on above: Performed By: #### B MP, TSH, LIPID, LIVER #### [facility] [address] [address] [address] Michelle Rogers PROF 14(COMP METB)on 022 Albumin [Mass/Vol] 4.0 g/dL Normal 3.4-5.0 [facility] Comment on above: Performed By: #### B MP, TSH, LIPID, LIVER #### [facility] [address] [address] [address] Michelle Rogers Albumin/Globulin [Mass ratio] 1.2 {ratio} Normal [facility] Comment on above: Performed By: #### B MP, TSH, LIPID, LIVER #### [facility] [address] [address] [address] Michelle Rogers ALP [Catalytic activity/Vol] 71 U/L Normal 46-116 [facility] Comment on above: Performed By: #### B MP, TSH, LIPID, LIVER #### [facility] [address] [address] [address] Michelle Rogers ALT [Catalytic activity/Vol] 73 U/L Critically high 16-63 [facility] Comment on above: Performed By: #### B MP, TSH, LIPID, LIVER #### [facility] [address] [place] [address] Dr. Michelle Rogers Anion gap [Moles/Vol] 13.2 mmol/L Normal [facility] Comment on above: Performed By: #### B MP, TSH, LIPID, LIVER #### [facility] [address] [place] [address] Dr. Michelle Rogers AST [Catalytic activity/Vol] 35 U/L Normal 15-37 [facility] Comment on above: Performed By: #### B MP, TSH, LIPID, LIVER #### [facility] [address] [place] [address] Dr. Michelle Rogers Bilirubin [Mass/Vol] 0.9 mg/dL Normal 0.2-1.0 [facility] Comment on above: Performed By: #### B MP, TSH, LIPID, LIVER #### [facility] [address] [place] [address] Dr. Michelle Rogers Calcium [Mass/Vol] 8.8 mg/dL Normal 8.5-10.1 [facility] Comment on above: Performed By: #### B MP, TSH, LIPID, LIVER #### [facility] [address] [place] [address] Dr. Michelle Rogers Chloride [Moles/Vol] 103 mmol/L Normal 98-107 [facility] Comment on above: Performed By: #### B MP, TSH, LIPID, LIVER #### [facility] [address] [place] [address] Dr. Michelle Rogers CO2 [Moles/Vol] 26.8 mmol/L Normal 21.0-32.0 [facility] Comment on above: Performed By: #### B MP, TSH, LIPID, LIVER #### [facility] [address] [place] [address] Dr. Michelle Rogers Creatinine [Mass/Vol] 0.96 mg/dL Normal 0.70-1.30 [facility] Comment on above: Performed By: #### B MP, TSH, LIPID, LIVER #### [facility] [address] [address] [address] Michelle Rogers EGFR-AF SAMMARINESE >60 Normal >=60 [facility] Comment on above: Performed By: #### B MP, TSH, LIPID, LIVER #### [facility] [address] [address] [address] Michelle Rogers EGFR-NON AF SAMMARINESE >60 Normal >=60 [facility] Comment on above: Performed By: #### B MP, TSH, LIPID, LIVER #### [facility] [address] [address] [address] Michelle Rogers Globulin (S) [Mass/Vol] 3.4 g/dL Normal [facility] Comment on above: Performed By: #### B MP, TSH, LIPID, LIVER #### [facility] [address] [place] [address] Dr. Michelle Rogers Glucose [Mass/Vol] 168 mg/dL Critically high 74-106 [facility] Comment on above: Performed By: #### B MP, TSH, LIPID, LIVER #### [facility] [address] [address] [address] Michelle Rogers Potassium [Moles/Vol] 4.0 mmol/L Normal 3.5-5.1 [facility] Comment on above: Performed By: #### B MP, TSH, LIPID, LIVER #### [facility] [address] [place] [address] Dr. Michelle Rogers Protein [Mass/Vol] 7.4 g/dL Normal 6.4-8.2 [facility] Comment on above: Performed By: #### B MP, TSH, LIPID, LIVER #### [facility] [address] [address] [address] Michelle Rogers Sodium [Moles/Vol] 139 mmol/L Normal 136-145 [facility] Comment on above: Performed By: #### B MP, TSH, LIPID, LIVER #### [facility] [address] [address] [address] Michelle Rogers Urea nitrogen [Mass/Vol] 18.0 mg/dL Normal 7.0-18.0 [facility] Comment on above: Performed By: #### B MP, TSH, LIPID, LIVER #### [facility] [address] [address] [address] Michelle Rogers Urea nitrogen/Creatinine [Mass ratio] 18.8 mg/mg Normal [facility] Comment on above: Performed By: #### B MP, TSH, LIPID, LIVER #### [facility] [id number] Michelle Rogers URIC ACID SERUMon 11-15-2021 Urate [Mass/Vol] 5.2 mg/dL Normal 3.5-7.2 [facility] Comment on above: Performed By: #### B MP, TSH, LIPID, LIVER #### [facility] [address] [address] [address] Michelle Rogers Vital Signs Date Time Vital Sign Value Performing Clinician Facility 12-31-2023 14:090500 Body height 172.7 cm Nam Banks MD Work Phone: [facility] 12-31-2023 14:09-0500 Body mass index (BMI) [Ratio] 39.84 kg/m2 Nam Banks MD Work Phone: [facility] 12-31-2023 14:09-0500 Body temperature 97.5 [degF] Nam Banks MD Work Phone: [facility] 12-31-2023 14:09-0500 Body weight 118.84 kg Nam Banks MD Work Phone: [facility] 12-31-2023 14:09-0500 Diastolic blood pressure 76 mm[Hg] Nam Banks MD Work Phone: [facility] 12-31-2023 14:09-0500 Heart rate 84 /min Nam Banks MD Work Phone: [facility] 12-31-2023 14:09-0500 Respiratory rate 22 /min Nam Banks MD Work Phone: [facility] 12-31-2023 14:09-0500 SaO2% (BldA) [Mass fraction] 98 % Nam Banks MD Work Phone: [facility] 12-31-2023 14:09-0500 Systolic blood pressure 140 mm[Hg] Nam Banks MD Work Phone: [facility] 10-24-2022 13:00-0400 Blood Pressure Location [facility] 10-24-2022 13:00-0400 Body temperature 98.24 [degF] [facility] 10-24-2022 13:00-0400 Diastolic blood pressure 92 mm[Hg] [facility] 10-24-2022 13:00-0400 Heart rate 89 /min [facility] 10-24-2022 13:00-0400 Mean blood pressure 109 mm[Hg] [facility] [facility] 10-24-2022 13:00-0400 Respiratory rate 16 /min Mhd Al-Marrawi [facility] 10-24-2022 13:00-0400 SaO2% (BldA) [Mass fraction] 98 % Mhd Al-Marrawi [facility] 10-24-2022 13:00-0400 Systolic blood pressure 143 mm[Hg] Mhd Al-Marrawi [facility] 10-03-2022 09:50-0400 Blood Pressure Location Ambrocio HITCHCOCK [facility] 10-03-2022 09:50-0400 Body temperature 98.6 [degF] Ambrocio HITCHCOCK [facility] 10-03-2022 09:50-0400 Diastolic blood pressure 81 mm[Hg] Ambrocio HITCCHOCK [facility] 10-03-2022 09:50-0400 Heart rate 77 /min Ambrocio HITCHCOCK [facility] 10-03-2022 09:50-0400 Systolic blood pressure 131 mm[Hg] Ambrocio HITCHCOCK [facility] 03-17-2022 09:50-0500 Blood Pressure Location Ambrocio HITCHCOCK [facility] 03-17-2022 09:50-0500 Diastolic blood pressure 84 mm[Hg] Ambrocio HITCHCOCK [facility] 03-17-2022 09:50-0500 Heart rate 66 /min Ambrociosascha HITCHCOCK [facility] 03-17-2022 09:50-0500 Respiratory rate 16 /min Ambrocio HITCHCOCK [facility] 03-17-2022 09:50-0500 Systolic blood pressure 128 mm[Hg] Ambrocio HITCHCOCK [facility] Encounters Encounter Date Encounter Type Care Provider Facility Start: 01-02-2024 End: 01-02-2024 Orders Only Nam Banks MD Work Phone: [facility] Comment on above: Type 2 diabetes leila itus with hyperglycemia, without long-term current use of insulin ([facility]) (Primary Dx) Start: 01-01-2024 End: 01-01-2024 Clinisync Result Encounter Nam Banks MD Work Phone: [facility] Unsolicited Start: 01-01-2024 End: 01-01-2024 Clinisync Result Encounter Nam Banks MD Work Phone: [facility] Unsolicited Start: 12-31-2023 End: 12-31-2023 Patient encounter procedure Nam Banks MD Work Phone: [facility] Work Phone: Start: 12-31-2023 End: 12-31-2023 Periodic preventive med est patient 40-64yrs Nam Banks MD Work Phone: [facility] Comment on above: Annual physical exam (Primary Dx); Type 2 diabetes mellitus with hyperglycemia, without long-term current use of insulin (CMS/HCC); Essential hypertension, benign (CMS/HCC) Start: 12-31-2023 End: 12-31-2023 ambulatory NAM BANKS Not Available Start: 12-31-2023 End: 12-31-2023 Bamboo flowsheet Nam Banks MD Work Phone: [facility] Start: 12-31-2023 End: 12-31-2023 Bamboo flowsheet Nam Banks MD Work Phone: [facility] Start: 09-24-2023 ambulatory [facility] Start: 04-02-2023 End: 04-02-2023 ambulatory Ambrocio HITCHCOCK Facility: [facility] Start: 03-27-2023 End: 04-11-2023 Pre-admission assessment [facility] Margot LeonardLisa [facility] Start: 03-21-2023 Telephone encounter Nam vaughan MD Work Phone: [facility] Start: 03-20-2023 Clinisync Result Encounter Generic External Data Provider [facility] Unsolicited Start: 03-20-2023 Clinisync Result Encounter Generic External Data Provider [facility] Unsolicited Start: 03-20-2023 ambulatory Ambrocio HITCHCOCK [facility] Start: 01-02-2023 End: 01-02-2023 ambulatory NAM BANKS Not Available Start: 01-02-2023 Patient encounter procedure Generic Provider [facility] Start: 10-24-2022 End: 10-24-2022 Patient encounter procedure Mhd Margot LeonardLisa [facility] Start: 10-24-2022 End: 10-24-2022 Patient encounter procedure Mhd Margot LeonardLisa [facility] Start: 10-03-2022 End: 10-03-2022 Patient encounter procedure Ambrocio HITCHCOCK [facility] Start: 04-06-2022 End: 04-07-[address] AMBROCIO HITCHCOCK . Facility:[facility] Start: 04-04-2022 End: 04-04-2022 Patient encounter procedure Ambrocio HITCHCOCK [facility] Start: 03-21-2022 End: 03-22-[address] NAM BANKS Facility:[facility] Start: 03-17-2022 End: 03-17-2022 Patient encounter procedure Ambrocio HITCHCOCK [facility] Start: 01-21-2022 Encounter for genera l adult medical examination without abnormal findings DR NAM BANKS [facility] Start: 01-17-2022 End: 01-18-2022 ambulatory DINORA HUERTA Facility:[facility] Start: 01-17-2022 End: 01-18-2022 Encounter for general adult medical examination without abnormal findings DINORA HUERTA Facility:[facility] Start: 11-15-2021 End: 11-16-2021 ambulatory DINORA HUERTA Facility:[facility] Procedures Date Procedure Procedure Detail Performing Clinician Start: 01-01-2024 ALL BASIC METABOLIC PANEL Nam Banks MD Work Phone: Start: 01-01-2024 ALL CBC WITH AUTO DIFF Nam Banks MD Work Phone: Start: 01-01-2024 ALL LIPID PROFILE (FASTING) Nam Banks MD Work Phone: Start: 01-01-2024 ALL THYROID STIM HORMONE Nam Banks MD Work Phone: Start: 01-01-2024 HMHP LIVER PANEL Nam anaya MD Work Phone: Start: 01-01-2024 MLR HEMOGLOBIN A1C Nam Banks MD Work Phone: Start: 01-01-2024 SRMCOH PROSTATE SPEC IFIC ANTIGEN SCRN Nam Banks MD Work Phone: Start: 01-01-2024 TBH MICROALBUMIN, RAND UR Nam Banks MD Work Phone: Start: 03-20-2023 ALL CBC WITH AUTO DIFF Generic External Data Provider Start: 11-28-2021 Right total orchidectomy Ambrocio HITCHCOCK Start: 11-28-2020 Right total orchidectomy Jose Tiara Plan of Treatment Date Care Activity Detail Author Start: 07-01-2024 End: 07-01-2024 Patient encounter procedure 07/01/2024 9:00 AM EDT Office Visit [facility] [address] [place] [phone] Nam Banks MD [address] [place] [phone] [facility] Start: 12-31-2023 End: 12-31-2023 Patient encounter procedure 12/31/2023 2:15 PM EST Office Visit [facility] GONZALE[facility] [address] [place] [phone] Nam Banks MD [address] [place] [phone] Arrived SKYLA GONZALEZ Comment on above: Arrived Start: 12-31-2023 End: 12-30-2024 Albumin, urine, random Albumin, urine, random Lab Routine Type 2 diabetes mellitus with hyperglycemia, without long-term current use of insulin ([facility]) Expected: 12/31/2023 (Approximate), Expires: 12/30/2024 [facility] Work Phone: Comment on above: Expected: 12/31/2023 (Approximate), Expires: 12/30/2024 Start: 12-31-2023 End: 12-30-2024 Basic metabolic 1998 panel - Serum or Plasma Basic metabolic panel Lab Routine Annual physical exam Expected: 12/31/2023 (Approximate), Expires: 12/30/2024 [facility] Comment on above: Expected: 12/31/2023 (Approximate), Expires: 12/30/2024 Start: 12-31-2023 End: 12-30-2024 CBC W Auto Differential panel - Blood CBC and differential Lab Routine Annual physical exam Expected: 12/31/2023 (Approximate), Expires: 12/30/2024 [facility] Comment on above: Expected: 12/31/2023 (Approximate), Expires: 12/30/2024 Start: 12-31-2023 End: 12-30-2024 Hemoglobin A1c/Hemoglobin.total in Blood Hemoglobin A1c Lab Routine Annual physical exam Expected: 12/31/2023 (Approximate), Expires: 12/30/2024 [facility] Comment on above: Expected: 12/31/2023 (Approximate), Expires: 12/30/2024 Start: 12-31-2023 End: 12-30-2024 Hepatic function 2000 panel - Serum or Plasma Hepatic function panel Lab Routine Annual physical exam Expected: 12/31/2023 (Approximate), Expires: 12/30/2024 [facility] Comment on above: Expected: 12/31/2023 (Approximate), Expires: 12/30/2024 Start: 12-31-2023 End: 12-30-2024 Lipid 1996 panel - Serum or Plasma Lipid panel Lab Routine Annual physical exam Expected: 12/31/2023 (Approximate), Expires: 12/30/2024 [facility] Comment on above: Expected: 12/31/2023 (Approximate), Expires: 12/30/2024 Start: 12-31-2023 End: 12-30-2024 Prostate specific Ag [Mass/volume] in Serum or Plasma PSA Lab Routine Annual physical exam Expected: 12/31/2023 (Approximate), Expires: 12/30/2024 [facility] Comment on above: Expected: 12/31/2023 (Approximate), Expires: 12/30/2024 Start: 12-31-2023 End: 12-30-2024 Thyrotropin [Units/volume] in Serum or Plasma TSH Lab Routine Annual physical exam Expected: 12/31/2023 (Approximate), Expires: 12/30/2024 [facility] Comment on above: Expected: 12/31/2023 (Approximate), Expires: 12/30/2024 Start: 10-07-2023 Influenza vaccination Influenza Vacc ine (#1) [facility] Start: 07-04-2023 Hemoglobin A1c measurement Diabetes: Hemoglobin A1C [facility] Start: 07-03-2023 End: 07-03-2023 Patient encounter procedure 07/03/2023 1:30 PM EDT Office Visit [facility] [address] [place] [address] Nam Banks MD [address] [place] [phone] [facility] Start: 04-05-2023 Hemoglobin A1c measurement Diabetes: Hemoglobin A1C [facility] Start: 03-22-2023 End: 03-22-2023 Patient encounter procedure 03/22/2023 9:45 AM EST Office Visit [facility] [address] [place] [address] Nam Banks MD [address] [place] [phone] [facility] Start: 03-21-2023 End: 03-21-2024 Hemoglobin A1c/Hemoglobin.total in Blood Hemoglobin A1c Lab Routine Type 2 diabetes mellitus with hyperglycemia, without long-term current use of insulin ([facility]) Expected: 03/21/2023 (Approximate), Expires: 03/21/2024 [facility] Work Phone: Comment on above: Expected: 03/21/2023 (Approximate), Expires: 03/21/2024 Start: 10-06-2022 Influenza vaccination Influenza Vacc ine (#1) [facility] Start: 2001 Urine screening for protein Diabetes: Urine Protein Screening [facility] Start: 1992 Glaucoma screening Diabetes: R etinopathy Screening [facility] Payers Date Payer Category Payer Private Health Insurance UBALDO JOSE [id number] 2022 Unknown KIEL DYSON [employer] [id number] 2022-Present [phone] [place] [id number] 2022 Unknown [id number] 1982 Unknown [id number] 1982 Unknown [id number] 1982 Unknown [id number] 1982 Unknown [id number] 1982 Unknown [id number] 1982 Unknown [id number] 1982 Unknown [id number] 1982 Unknown [id number] Social History Date Type Detail Facility Start: 03-17-2022 End: 01-02-2023 Tobacco smoking status Never smoked tobacco (finding) [facility] Tobacco smoking status Never [facility] Start: 01-02-2023 End: 12-31-2023 Sex Assigned At Male [facility] Start: 01-02-2023 Tobacco use and exposure Smokeless tobacco non-user [facility] Start: 01-02-2023 End: 12-31-2023 Alcohol intake Lifetime non-drinker (finding) [facility] Start: 01-02-2023 End: 12-31-2023 History of Social function [facility] Start: 1980 Sex Assigned At Not on file [facility] Functional Status Date Assessment Result Facility 10-03-2022 Functional Status N/A [facility] 03-17-2022 Functional Status N/A [facility] Clinical Notes 03-17-2022 to 12-31-2023 Nam [...] panel PSA TSH documented in this encounter [facility] 03-21-2023 Telephone encounter Note A1C order in chart. Please send to lab. Will notify of results and make changes now if needed. Can discuss at visit in June. [facility] 03-21-2023 Miscellaneous Notes A1C order in chart. Please send to lab. Will notify of results and make changes now if needed. Can discuss at visit in June. documented in this encounter [facility] 10-03-2022 Hospital Discharg e instructions Follow Up Care 10/03/2022 10:43:25 With:Jose Menjivar Address: [facility] [place] [phone] Business (1) When: Unknown Comments:Will obtain labs [...] scans and the tumor markers are positive. [facility] 10-03-2022 Hospital Discharg e instructions Patient Education [...] provider. Document Revised: 12/29/2019 Document Reviewed: 12/29/2019 [place] Patient Education [address] [facility]. Follow Up Care 09/25/2022 15:29:11 With:YIFAN CHAMBERS, Ambrocio Brower, URL Address: [facility] [address] , [place] [address]- When: Unknown [facility] 04-04-2022 Hospital Discharg e instructions Patient Education [...] With:Ambrocio HITCHCOCK Address: [facility] [address] , [place] [address]- Business (1) When:10/02/2022 09:23:38 [facility] 03-17-2022 Hospital Discharg e instructions Patient Education [...] 04/30/2001 Document Revised: 05/15/2019 Document Reviewed: 12/18/2016 [place] Patient Education [address] [facility]. Follow Up Care 11/03/2021 14:24:28 With:Ambrocio HITCHCOCK MD, URL Address: [address] [place] [address]- When: Unknown [facility] Evaluation + Plan note Future Appointments Appointment Date:03/28/2022 12:15:00 PM Scheduled Provider: Location:[facility] Appointment Type:Urology CALL PAT FT Appointment Date:04/04/2022 09:00:00 AM Scheduled Provider: Location:[facility] Appointment Type:Urology FT Diagnostic Tests PendingBeta hCG Quantitative 03/17/22Alpha Fetoprotein Tumor Marker 03/17/22Lactate Dehydrogenase 03/17/22Urine Cytology ([facility]) 03/17/22 [facility] Evaluation + Plan note Future Appointments Appointment Date:04/27/2022 10:45:00 AM Scheduled Provider:Jordon Stout DO Location:FT.ONCOLOGY Appointment Type:ONC Office Visit 45 (FT) Appointment Date:10/03/2022 09:30:00 AM Scheduled Provider:Ambrocio HITCHCOCK MD Location:[facility] Appointment Type:URO Office Visit [facility] Evaluation + Plan note Future Appointments Appointment Date:10/12/2022 11:15:00 AM Scheduled Provider:Jordon Stout DO Location:[facility]ONCOL[facility]Y Appointment Type:ONC Office Visit 45 (FT) Appointment Date:04/02/2023 10:30:00 AM Scheduled Provider:Ambrocio HITCHCOCK MD Location:[facility] Appointment Type:URO Office Visit Diagnostic Tests PendingBeta hCG Quantitative 10/03/22Alpha Fetoprotein Tumor Marker 10/03/22Lactate Dehydrogenase 10/03/22 [facility] Evaluation + Plan note Future Appointments Appointment Date:03/27/2023 09:00:00 AM Scheduled Provider: Location:.ONCOLOGY Appointment Type:ONC Office Visit 30 (FT) Appointment Date:04/02/2023 10:30:00 AM Scheduled Provider:Ambrocio [facility]ITCHCOCK MD [facility] Office Visit [facility] Evaluation + Plan note Future Appointments Appointment Date:03/27/2023 09:00:00 AM Scheduled Provider: Location:.ONCOLOGY Appointment Type:ONC Office Visit 30 (FT) Appointment Date:04/02/2023 10:30:00 AM Scheduled Provider:Ambrocio HITCHCOCK MD [facility] Type:URO Office Visit Diagnostic Tests PendingAlpha Fetoprotein Tumor Marker 10/24/22 [facility] Evaluation + Plan note Future Appointments Appointment Date:09/24/2023 10:15:00 AM Scheduled Provider:Ambrocio HITCHCOCK MD [facility] Type:URO Office Visit Diagnostic Tests PendingCBC w/ Auto Diff 03/12/23Comprehensive Metabolic Panel 03/12/23Alpha Fetoprotein Tumor Marker 03/12/23Beta hCG Quantitative 03/12/23Lactate Dehydrogenase 03/12/23 [facility] Evaluation note Diagnosis Type 2 diabetes mellitus [...] hypertension, benign [facility] [...] Essential hypertension, benign (CMS/HCC) Essential hypertension, benign Type 2 diabetes mellitus with hyperglycemia, without long-term current use of insulin (CMS/HCC)- Primary [facility] Narrative No data available for this section [facility] Hospital Discharge instructions No data available for this section [facility] No data available for this section [facility] reason for referral (narrative) Referred by: YIFAN CHAMBERS, Ambrocio Brower [facility] Summary Purpose Family History No Family History Records Found No data available for this section No Family History Records FoundNo Family History Records Found Advance Directives No Advanced Directives Records FoundNo Advanced Directives Records FoundNo Advanced Directives Records Found Additional Source Comments Patient Care team informatio n (unrecognized section and content) 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 Start Date End Date Nam Banks MD PCP - General Family Medicine 08/30/22 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 Start Date End Date Nam Banks MD PCP - General Family Medicine 08/30/22 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 Start Date End Date Nam Banks MD [address] [place] [phone] PCP - General Family Medicine 12/31/23 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 Start Date End Date Nam Banks MD [address] [place] [phone] PCP - General Family Medicine 12/31/23 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 DATE CREATED AUTHOR AUTHOR'S ORGANIZ ATION 11/19/2023 [facility] DATE CREATED AUTHOR AUTHOR'S ORGANIZ ATION 01/02/2024 [facility] EPIC Reason for Visit (unrecogniz ed section and [...] BE BASED ON THE PRIMARY CLINICAL RECORDS. [employer] provides no warranty or guarantee of the accuracy or completeness of information in this document.
[2024-03-21 09:53] LABS: Estimated Average Glucose 209 mg/dL; Glycohemoglobin A1C 8.9 % (4.5-6.2)
== END 2024-03-21 09:25 | disposition home or self-care (01) ==
LOC: LAB 09:25
PROVIDERS: PCP Family Medicine; Visit Provider Family Medicine
DX: E11.65 Type 2 diabetes mellitus with hyperglycemia (principal)
CPT/HCPCS: 36415; 83036